=== PATIENT | female | born 1960 | race Caucasian/White ===

== ENCOUNTER 2016-12-29 18:53 | Inpatient (IN) | payer MEDICARE, MEDICAID ==
[2016-12-29] MEDS ORDERED: ONDANSETRON 4 MG TAB.RAPDIS PO ONE (19:07)
--- NOTE | 2016-12-29 19:08 | ER Document Report ---
ED Medical Screen (RME) - General Stated Complaint: STOMACH PAIN Notes: Patient complains of intermittent abdominal pain and nausea since , symptoms worsen since yesterday. Patient denies fever, no diarrhea, no vomiting. Denies history of stomach problems. Patient states that she smoked marijuana last night to help with the nausea. I have greeted and performed a rapid initial assessment of this patient. A comprehensive ED assessment and evaluation of the patient, analysis of test results and completion of the medical decision making process will be conducted by additional ED providers. TRAVEL OUTSIDE OF THE [place] IN LAST 30 DAYS: No - Related Data Allergies/Adverse Reactions: hydrocodone [Hydrocodone] Allergy (Verified 12/29/16 19:03) tramadol [Tramadol] Allergy (Verified 12/29/16 19:03) Past Medical History - Past Medical History Cardiac Medical History: Reports: Hx Hypercholesterolemia Neurological Medical History: Reports: Hx Seizures Psychiatric Medical History: Reports: Hx Bipolar Disorder Past Surgical History: Reports: Hx Appendectomy, Hx Gynecologic Surgery - tubal ligation - Immunizations Hx Diphtheria, Pertussis, Tetanus Vaccination: Yes
[2016-12-29 19:39] LABS: ABSOLUTE EOSINOPHILS # (AUTO) 0.1 10^3/uL (0.0-0.6); ABSOLUTE LYMPHOCYTES (AUTO) 1.4 10^3/uL (0.5-4.7); ABSOLUTE MONOCYTES (AUTO) 0.6 10^3/uL (0.1-1.4); ABSOLUTE NEUT (AUTO) 5.8 10^3/uL (1.7-8.2); BASOPHILS % (AUTO) 0.5 % (0-2); EOSINOPHILS % (AUTO) 1.2 % (0-6); HEMATOCRIT 34.1 % (36.0-47.0); HEMOGLOBIN 11.7 g/dL (12.0-15.5); LYMPHOCYTES % (AUTO) 17.2 % (13-45); MEAN CORPUSCULAR HEMOGLOBIN 30.5 pg (27.0-33.4); MEAN CORPUSCULAR HGB CONC 34.4 g/dL (32.0-36.0); MEAN CORPUSCULAR VOLUME 89 fl (80-97); MONOCYTES % (AUTO) 7.8 % (3-13); RED BLOOD COUNT 3.84 10^6/uL (3.72-5.28); RED CELL DISTRIBUTION WIDTH 13.1 % (11.5-14.0); SEGMENTED NEUTROPHILS % (AUTO) 73.3 % (42-78); WHITE BLOOD COUNT 7.8 10^3/uL (4.0-10.5)
[2016-12-29 19:55] LABS: ALANINE AMINOTRANSFERASE 560 U/L (9-52); ALBUMIN 4.2 g/dL (3.5-5.0); ALKALINE PHOSPHATASE 280 U/L (38-126); ANION GAP 8 (5-19); ASPARTATE AMINO TRANSFERASE 644 U/L (14-36); BILIRUBIN,TOTAL 0.8 mg/dL (0.2-1.3); BLOOD UREA NITROGEN 12 mg/dL (7-20); CALCIUM 9.6 mg/dL (8.4-10.2); CARBON DIOXIDE 30 mmol/L (22-30); CHLORIDE 106 mmol/L (98-107); GLUCOSE 105 mg/dL (75-110); POTASSIUM 4.2 mmol/L (3.6-5.0); SODIUM 144.4 mmol/L (137-145)
[2016-12-29 19:56] LABS: AMORPHOUS SEDIMENT,URINE TRACE /HPF; APPEARANCE,URINE CLEAR; BILIRUBIN,URINE NEGATIVE (NEGATIVE); GLUCOSE, URINE NEGATIVE (NEGATIVE); KETONES,URINE NEGATIVE (NEGATIVE); LEUKOCYTE ESTERASE,URINE NEGATIVE (NEGATIVE); NITRITE,URINE NEGATIVE (NEGATIVE); PROTEIN,URINE NEGATIVE (NEGATIVE); URINE SPECIFIC GRAVITY 1.013; UROBILINOGEN,URINE NEGATIVE mg/dL (<2.0)
[2016-12-29 20:22] LABS: LIPASE 5679.1 U/L (23-300)
[2016-12-29] MEDS ORDERED: FAMOTIDINE INJ/PF 20 MG/2 ML SDV IV ONE (21:02)
[2016-12-29] MEDS ORDERED: MORPHINE SULFATE 10 MG/ML INJ IV ONE (21:02)
[2016-12-29] MEDS ORDERED: NORMAL SALINE 1000 ML 1,000 ML IV PRN (21:02)
--- NOTE | 2016-12-29 21:03 | ER Document Report ---
ED GI/ - General Chief Complaint: Abdominal Pain Stated Complaint: STOMACH PAIN Time seen by provider: 21:02 Mode of Arrival: Ambulatory Information source: Patient TRAVEL OUTSIDE OF THE [place] IN LAST 30 DAYS: No - HPI Patient complains to provider of: Abdominal pain Onset: Other - One month Timing/Duration: Persistent, Waxing and waning Quality of pain: Sharp, Stabbing Severity at maximum: Moderate Severity in ED: Moderate Pain Level: 4 Location: Epigastric Associated symptoms: Nausea Exacerbated by: Denies Relieved by: Denies Similar symptoms previously: Yes Recently seen / treated by doctor: No Notes: 12/29/16 21:36 Patient is a 56-year-old female presenting to the emergency room complaining of epigastric abdominal pain and nausea that's been waxing and waning over the past month, she denies a fever, no vomiting, no history of similar symptoms previously, history of appendectomy in the past, she denies having consumed alcohol in several months, she does admit to smoking marijuana yesterday as she thought it would help her nausea which did not, no sick contacts and no questionable food intake recently - Related Data Allergies/Adverse Reactions: hydrocodone [Hydrocodone] Allergy (Verified 12/29/16 19:03) tramadol [Tramadol] Allergy (Verified 12/29/16 19:03) Past Medical History - General Information source: Patient - Social History Smoking Status: Current Every Day Smoker Chew tobacco use (# tins/day): No Frequency of alcohol use: None Drug Abuse: Marijuana Family History: Reviewed & Not Pertinent Patient has suicidal ideation: No Patient has homicidal ideation: No - Past Medical History Cardiac Medical History: Reports: Hx Hypercholesterolemia Neurological Medical History: Reports: Hx Seizures Renal/ Medical History: Denies: Hx Peritoneal Dialysis Psychiatric Medical History: Reports: Hx Bipolar Disorder Past Surgical History: Reports: Hx Appendectomy, Hx Gynecologic Surgery - tubal ligation - Immunizations Hx Diphtheria, Pertussis, Tetanus Vaccination: Yes Review of Systems - Review of Systems Constitutional: No symptoms reported EENT: No symptoms reported Cardiovascular: No symptoms reported Respiratory: No symptoms reported Gastrointestinal: See HPI Genitourinary: No symptoms reported Female Genitourinary: No symptoms reported Musculoskeletal: No symptoms reported Skin: No symptoms reported Hematologic/Lymphatic: No symptoms reported Neurological/Psychological: No symptoms reported -: Yes All other systems reviewed and negative Physical Exam - Vital signs Vitals: Temp Pulse Resp BP Pulse Ox 98.1 F 86 16 129/78 H 99 12/29/16 19:05 12/29/16 19:05 12/29/16 19:05 12/29/16 19:05 12/29/16 19:05 Interpretation: Normal - General General appearance: Appears well, Alert - HEENT Head: Normocephalic, Atraumatic Eyes: Normal Pupils: PERRL - Respiratory Respiratory status: No respiratory distress Chest status: Nontender Breath sounds: Normal Chest palpation: Normal - Cardiovascular Rhythm: Regular Heart sounds: Normal auscultation Murmur: No - Abdominal Inspection: Normal Distension: No distension Bowel sounds: Normal Tenderness: Tender - Epigastric Organomegaly: No organomegaly - Back Back: Normal, Nontender - Extremities General upper extremity: Normal inspection, Nontender, Normal color, Normal ROM , Normal temperature General lower extremity: Normal inspection, Nontender, Normal color, Normal ROM , Normal temperature, Normal weight bearing. No: Romulo's sign - Neurological Neuro grossly intact: Yes Cognition: Normal Orientation: AAOx4 [place] Coma Scale Eye Opening: Spontaneous [place] Coma Scale Verbal: Oriented [place] Coma Scale Motor: Obeys Commands [place] Coma Scale Total: 15 Speech: Normal Motor strength normal: LUE, RUE, LLE, RLE Sensory: Normal - Psychological Associated symptoms: Normal affect, Normal mood - Skin Skin Temperature: Warm Skin Moisture: Dry Skin Color: Normal Course - Re-evaluation Re-evalutation: 12/29/16 23:17 Lab and imaging findings discussed with patient at bedside, admission was advised, patient in agreement, and was discussed with the hospitalist who agrees to admit for further evaluation and treatment, patient reports feeling much better at time of reevaluation, stable for admission to medical floor - Vital Signs Vital signs: Temp Pulse Resp BP Pulse Ox 98.1 F 86 16 129/78 H 99 12/29/16 19:05 12/29/16 19:05 12/29/16 19:05 12/29/16 19:05 12/29/16 19:05 - Laboratory Result Diagrams: 12/29/16 19:24 12/29/16 19:24 Laboratory results interpreted by me: 12/29/16 12/29/16 12/29/16 19:24 19:24 19:24 Hgb 11.7 L Hct 34.1 L AST 644 H ALT 560 H Alkaline Phosphatase 280 H Lipase 5679.1 H Urine Blood SMALL H - Diagnostic Test Radiology reviewed: Image reviewed, Reports reviewed Discharge - Discharge Clinical Impression: Acute pancreatitis Qualifiers: Pancreatitis type: unspecified pancreatitis type Acute pancreatitis complication: no infection or necrosis Qualified Code(s): K85.90 - Acute pancreatitis without necrosis or infection, unspecified Condition: Stable Disposition: ADMITTED INPATIENT Admitting Provider: Hospitalist Unit Admitted: Medical Floor
[2016-12-29 22:32] LABS: URINE BARBITURATES SCREEN NEGATIVE; URINE METHADONE SCREEN NEGATIVE; URINE OPIATES LOW NEGATIVE; URINE PHENCYCLIDINE SCREEN NEGATIVE
[2016-12-29 23:26] LABS: CHOLESTEROL 252.08 mg/dL (0-200); TRIGLYCERIDES 99 mg/dL (<150)
[2016-12-29 23:34] LABS: Direct HDL 108 mg/dL (>40)
[2016-12-29 23:37] LABS: DIRECT LDL 124 mg/dL (<100)
[2016-12-30] MEDS: NORMAL SALINE 1000 ML 1,000 ML IV SCH ×2 (00:50→04:42)
[2016-12-30] MEDS: ONDANSETRON HCL INJ/PF 4 MG/2 ML SDV IV PRN ×2 (01:00→18:29)
[2016-12-30] MEDS: KETOROLAC TROMETHAMINE INJ/PF 30 MG/1 ML SDV IV PRN ×2 (03:12→11:43)
[2016-12-30 05:04] LABS: ABSOLUTE LYMPHOCYTES (AUTO) 1.2 10^3/uL (0.5-4.7); ABSOLUTE MONOCYTES (AUTO) 0.6 10^3/uL (0.1-1.4); ABSOLUTE NEUT (AUTO) 6.4 10^3/uL (1.7-8.2); BASOPHILS % (AUTO) 0.4 % (0-2); EOSINOPHILS % (AUTO) 0.5 % (0-6); HEMATOCRIT 31.1 % (36.0-47.0); HEMOGLOBIN 10.6 g/dL (12.0-15.5); HGB HCT DIFFERENCE 0.7; LYMPHOCYTES % (AUTO) 14.9 % (13-45); MEAN CORPUSCULAR HEMOGLOBIN 30.5 pg (27.0-33.4); MEAN CORPUSCULAR VOLUME 90 fl (80-97); MONOCYTES % (AUTO) 6.7 % (3-13); RED BLOOD COUNT 3.46 10^6/uL (3.72-5.28); RED CELL DISTRIBUTION WIDTH 13.2 % (11.5-14.0); SEGMENTED NEUTROPHILS % (AUTO) 77.5 % (42-78); WHITE BLOOD COUNT 8.3 10^3/uL (4.0-10.5)
[2016-12-30] MEDS ORDERED: ONDANSETRON HCL INJ/PF 4 MG/2 ML SDV IV ONE (05:06)
[2016-12-30 05:22] LABS: ALANINE AMINOTRANSFERASE 555 U/L (9-52); ALBUMIN 3.4 g/dL (3.5-5.0); ALKALINE PHOSPHATASE 264 U/L (38-126); ANION GAP 8 (5-19); ASPARTATE AMINO TRANSFERASE 545 U/L (14-36); BILIRUBIN,TOTAL 0.7 mg/dL (0.2-1.3); BLOOD UREA NITROGEN 13 mg/dL (7-20); CALCIUM 8.8 mg/dL (8.4-10.2); CARBON DIOXIDE 23 mmol/L (22-30); CHLORIDE 110 mmol/L (98-107); CREATININE RESULT 0.74 mg/dL (0.52-1.25); GLUCOSE 107 mg/dL (75-110); POTASSIUM 4.5 mmol/L (3.6-5.0); SODIUM 141.3 mmol/L (137-145); TOTAL PROTEIN 6.3 g/dL (6.3-8.2)
--- NOTE | 2016-12-30 05:56 | PDOC H&P ---
History of Present Illness Admission Date/PCP: 12/29/16 22:54 TIFFANIE DEL ROSARIO MD Patient complains of: Abdominal pain and nausea History of Present Illness: RENEE BURRIS is a 56 year old female without significant past medical history who'd been in her usual state of health until approximately 5 days ago noting some symptoms of diffuse body ache fever and chill suggestive of a viral illness which is subsequently resolved however this had the development of epigastric pain with nausea vomiting abdominal bloating and loose stools for the last 3 days prompting to seek evaluation emergency room where she's found to have acute pancreatitis and referred to the hospitalist for admission. She denies previous episode she denies alcohol, dyslipidemia or medication other than a trial of Maalox and omeprazole after the onset of symptoms. Past Medical History Cardiac Medical History: Reports: Hyperlipidema Neurological Medical History: Reports: Seizures Psychiatric Medical History: Reports: Bipolar Disorder Past Surgical History Past Surgical History: Reports: Appendectomy Social History Information Source: Patient Lives with: Alone Smoking Status: Current Every Day Smoker Drugs: None - Advance Directive Resuscitation Status: Full Code Family History Family History: Other - Father of gastric carcinoma Parental Family History Reviewed: Yes Children Family History Reviewed: Yes Sibling(s) Family History Reviewed.: Yes Medication/Allergy Home Medications: No Home Medications 12/30/16 Allergies/Adverse Reactions: hydrocodone [Hydrocodone] Allergy (Verified 12/29/16 19:03) tramadol [Tramadol] Allergy (Verified 12/29/16 19:03) Review of Systems Constitutional: ABSENT: chills, fever(s), headache(s), weight gain, weight loss Eyes: ABSENT: visual disturbances Ears: ABSENT: hearing changes Cardiovascular: ABSENT: chest pain, dyspnea on exertion, edema, orthropnea, palpitations Respiratory: ABSENT: cough, hemoptysis Gastrointestinal: ABSENT: abdominal pain, constipation, diarrhea, hematemesis, hematochezia, nausea, vomiting Genitourinary: ABSENT: dysuria, hematuria Musculoskeletal: ABSENT: joint swelling Integumentary: ABSENT: rash, wounds Neurological: ABSENT: abnormal gait, abnormal speech, confusion, dizziness, focal weakness, syncope Psychiatric: ABSENT: anxiety, depression, homidical ideation, suicidal ideation Endocrine: ABSENT: cold intolerance, heat intolerance, polydipsia, polyuria Hematologic/Lymphatic: ABSENT: easy bleeding, easy bruising Physical Exam Vital Signs: Temp Pulse Resp BP Pulse Ox 98.4 F 57 L 16 106/64 96 12/30/16 04:48 12/30/16 04:48 12/30/16 04:48 12/30/16 04:48 12/30/16 04:48 General appearance: PRESENT: cooperative, mild distress, well-developed, well- nourished Head exam: PRESENT: atraumatic, normocephalic Eye exam: PRESENT: conjunctiva pink, EOMI, PERRLA. ABSENT: scleral icterus Ear exam: PRESENT: normal external ear exam Mouth exam: PRESENT: moist, tongue midline Neck exam: ABSENT: carotid bruit, JVD, lymphadenopathy, thyromegaly Respiratory exam: PRESENT: clear to auscultation tanja. ABSENT: rales, rhonchi, wheezes Cardiovascular exam: PRESENT: RRR. ABSENT: diastolic murmur, rubs, systolic murmur Pulses: PRESENT: normal dorsalis pedis pul Vascular exam: PRESENT: normal capillary refill GI/Abdominal exam: PRESENT: hyperactive bowel sounds, normal bowel sounds, soft , tenderness. ABSENT: ascites, distended, guarding, mass, Diaz's sign, organolmegaly, rebound Rectal exam: PRESENT: deferred Extremities exam: PRESENT: full ROM. ABSENT: calf tenderness, clubbing, pedal edema Neurological exam: PRESENT: alert, awake, oriented to person, oriented to place , oriented to time, oriented to situation, CN II-XII grossly intact. ABSENT: motor sensory deficit Psychiatric exam: PRESENT: appropriate affect, normal mood. ABSENT: homicidal ideation, suicidal ideation Skin exam: PRESENT: dry, intact, warm. ABSENT: cyanosis, rash Results Laboratory Results: 12/30/16 04:37 12/30/16 04:37 12/30/16 12/30/16 04:37 04:37 WBC 8.3 RBC 3.46 L Hgb 10.6 L Hct 31.1 L MCV 90 MCH 30.5 MCHC 34.0 RDW 13.2 Plt Count 196 Seg Neutrophils % 77.5 Lymphocytes % 14.9 Monocytes % 6.7 Eosinophils % 0.5 Basophils % 0.4 Absolute Neutrophils 6.4 Absolute Lymphocytes 1.2 Absolute Monocytes 0.6 Absolute Eosinophils 0.0 Absolute Basophils 0.0 Sodium 141.3 Potassium 4.5 Chloride 110 H Carbon Dioxide 23 Anion Gap 8 BUN 13 Creatinine 0.74 Est GFR ( Amer) > 60 Est GFR (Non-Af Amer) > 60 Glucose 107 Calcium 8.8 Total Bilirubin 0.7 AST 545 H ALT 555 H Alkaline Phosphatase 264 H Total Protein 6.3 Albumin 3.4 L Impressions: Abdomen/Pelvis CT 12/29/16 21:01 IMPRESSION: NO SIGNIFICANT OR ACUTE FINDING IN THE ABDOMEN OR PELVIS ON CT SCAN WITH IV CONTRAST. Assessment & Plan - Diagnosis (1) Acute pancreatitis Qualifiers: Pancreatitis type: unspecified pancreatitis type Acute pancreatitis complication: no infection or necrosis Qualified Code(s): K85.90 - Acute pancreatitis without necrosis or infection, unspecified Is this a current diagnosis for this admission?: YesPlan: During the history of evolution and lack of known triggers suspect viral gastroenteritis with subsequent pancreatitis, that said I am concerned for her elevated LFTs without bilirubin and will evaluate a hepatitis profile. Otherwise patient remained nothing by mouth aggressive IV fluid challenge electrolyte repletion and symptomatically management (2) Abdominal pain Is this a current diagnosis for this admission?: YesPlan: Secondary to pancreatitis continue Symptomatically management (3) Elevated LFTs Is this a current diagnosis for this admission?: YesPlan: Evaluate hepatitis profile, reevaluate LFTs for improvement - Time Time Spent: 30 to 50 Minutes
--- NOTE | 2016-12-30 09:18 | PDOC PROGRESS REPORT ---
Subjective Progress Note for:: 12/30/16 Subjective:: Patient is still complaining of abdominal pain The pain is in the right upper quadrant; it is associated with anorexia and nausea Patient has no fever no chills Physical Exam Vital Signs: Temp Pulse Resp BP Pulse Ox 98.4 F 57 L 16 106/64 96 12/30/16 04:48 12/30/16 04:48 12/30/16 04:48 12/30/16 04:48 12/30/16 04:48 General appearance: PRESENT: no acute distress, well-developed, well-nourished Head exam: PRESENT: atraumatic, normocephalic Eye exam: PRESENT: conjunctiva pink, EOMI, PERRLA. ABSENT: scleral icterus Ear exam: PRESENT: normal external ear exam Mouth exam: PRESENT: moist, tongue midline Neck exam: ABSENT: carotid bruit, JVD, lymphadenopathy, thyromegaly Respiratory exam: PRESENT: clear to auscultation tanja. ABSENT: rales, rhonchi, wheezes Cardiovascular exam: PRESENT: RRR. ABSENT: diastolic murmur, rubs, systolic murmur Pulses: PRESENT: normal dorsalis pedis pul Vascular exam: PRESENT: normal capillary refill GI/Abdominal exam: PRESENT: guarding, normal bowel sounds, soft, tenderness - Tenderness of the right upper quadrant with mild guarding. ABSENT: distended, mass, organolmegaly, rebound Rectal exam: PRESENT: deferred Extremities exam: PRESENT: full ROM. ABSENT: calf tenderness, clubbing, pedal edema Neurological exam: PRESENT: alert, awake, oriented to person, oriented to place , oriented to time, oriented to situation, CN II-XII grossly intact. ABSENT: motor sensory deficit Psychiatric exam: PRESENT: appropriate affect, normal mood. ABSENT: homicidal ideation, suicidal ideation Skin exam: PRESENT: dry, intact, warm. ABSENT: cyanosis, rash Results Laboratory Results: 12/30/16 04:37 12/30/16 04:37 12/30/16 12/30/16 04:37 04:37 WBC 8.3 RBC 3.46 L Hgb 10.6 L Hct 31.1 L MCV 90 MCH 30.5 MCHC 34.0 RDW 13.2 Plt Count 196 Seg Neutrophils % 77.5 Lymphocytes % 14.9 Monocytes % 6.7 Eosinophils % 0.5 Basophils % 0.4 Absolute Neutrophils 6.4 Absolute Lymphocytes 1.2 Absolute Monocytes 0.6 Absolute Eosinophils 0.0 Absolute Basophils 0.0 Sodium 141.3 Potassium 4.5 Chloride 110 H Carbon Dioxide 23 Anion Gap 8 BUN 13 Creatinine 0.74 Est GFR ( Amer) > 60 Est GFR (Non-Af Amer) > 60 Glucose 107 Calcium 8.8 Total Bilirubin 0.7 AST 545 H ALT 555 H Alkaline Phosphatase 264 H Total Protein 6.3 Albumin 3.4 L Impressions: Abdomen/Pelvis CT 12/29/16 21:01 IMPRESSION: NO SIGNIFICANT OR ACUTE FINDING IN THE ABDOMEN OR PELVIS ON CT SCAN WITH IV CONTRAST. Assessment & Plan - Diagnosis (1) Acute pancreatitis Qualifiers: Pancreatitis type: unspecified pancreatitis type Acute pancreatitis complication: no infection or necrosis Qualified Code(s): K85.90 - Acute pancreatitis without necrosis or infection, unspecified Is this a current diagnosis for this admission?: Yes (2) Elevated LFTs Is this a current diagnosis for this admission?: Yes - Time Time Spent with patient: CT abdomen and pelvis was unremarkable; a hepatitis profile is pending We will order an ultrasound of the right upper quadrant to exclude acute cholecystitis Tylenol level was ordered although patient states that she never takes Tylenol We will keep the patient nothing by mouth with IV fluids Follow-up LFTs and lipase Time Spent with patient: 25-34 minutes
[2016-12-30 10:25] LABS: PROTHROMBIN TIME 13.3 SEC (11.4-15.4)
[2016-12-30] MEDS ORDERED: INFLUENZA ADLT QUAD (36MOS+) 2016-17 VAC 0.5 ML SYR IM PRN (10:43)
[2016-12-30] MEDS: HEPARIN SOD (PORCINE) 5,000 UNIT/ML 1 ML SYRINGE SUBCUT SCH ×3 (11:44→21:26)
[2016-12-30] MEDS ORDERED: LORAZEPAM INJ 2 MG/1 ML VIAL IV ONE (22:12)
[2016-12-31] MEDS: HEPARIN SOD (PORCINE) 5,000 UNIT/ML 1 ML SYRINGE SUBCUT SCH (06:39)
[2016-12-31] MEDS: ONDANSETRON HCL INJ/PF 4 MG/2 ML SDV IV PRN (12:27)
--- NOTE | 2016-12-31 14:47 | PDOC CONSULTATION ---
Consultation Consult Date: 12/31/16 Attending physician:: DINORA POWERS Consult reason:: Gallbladder disease History of Present Illness Admission Date/PCP: 12/29/16 22:54 TIFFANIE DEL ROSARIO MD History of Present Illness: RENEE BURRIS is a 56 year old female without significant past medical history who'd been in her usual state of health until approximately 5 days ago noting some symptoms of diffuse body ache fever and chill suggestive of a viral illness which is subsequently resolved however this had the development of epigastric pain with nausea vomiting abdominal bloating and loose stools for the last 3 days prompting to seek evaluation emergency room where she's found to have acute pancreatitis and referred to the hospitalist for admission. She denies previous episode she denies alcohol, dyslipidemia or medication other than a trial of Maalox and omeprazole after the onset of symptoms. Surgeons addendum; patient denies history of gallbladder problems, history of pancreatitis or family history of biliary tract disease. Denies previous episodes of pancreatitis. SHe denies history of trauma, change in medications, insect bites. Since hospitalization she's been kept nothing by mouth on IV fluids. She feels a little better. Her pain is primarily epigastric and right upper quadrant. Past Medical History Cardiac Medical History: Reports: Hyperlipidema Neurological Medical History: Reports: Seizures Psychiatric Medical History: Reports: Bipolar Disorder Past Surgical History Past Surgical History: Reports: Appendectomy Social History Lives with: Alone Smoking Status: Current Every Day Smoker Cigarettes Packs Per Day: 1 Frequency of Alcohol Use: None Hx Recreational Drug Use: No Drugs: None Hx Prescription Drug Abuse: No - Advance Directive Resuscitation Status: Full Code Family History Family History: Other - Father of gastric carcinoma Parental Family History Reviewed: Yes Children Family History Reviewed: Yes Sibling(s) Family History Reviewed.: Yes Medication/Allergy Home Medications: No Home Medications 12/30/16 Allergies/Adverse Reactions: hydrocodone [Hydrocodone] Allergy (Verified 12/29/16 19:03) tramadol [Tramadol] Allergy (Verified 12/29/16 19:03) Physical Exam Vital Signs: Temp Pulse Resp BP Pulse Ox 98.7 F 89 18 107/46 L 96 12/31/16 07:34 12/31/16 07:34 12/31/16 07:34 12/31/16 07:34 12/31/16 07:34 Intake & Output 12/30/16 12/31/16 01/01/17 06:59 06:59 06:59 Intake Total 100 10 Output Total 900 Balance -800 10 Weight 82 kg 82 kg General appearance: PRESENT: no acute distress Eye exam: PRESENT: EOMI Mouth exam: PRESENT: dry mucosa Respiratory exam: PRESENT: clear to auscultation tanja Cardiovascular exam: PRESENT: RRR Pulses: PRESENT: normal carotid pulses, normal radial pulses GI/Abdominal exam: PRESENT: other - Soft but exquisitely tender in the right upper quadrant with a suggestion of a palpable all bladder. Rectal exam: PRESENT: other - Deferred; patient had colonoscopy within the past 10 years in [place], [place] with removal of polyp Results Laboratory Results: 12/30/16 04:37 12/30/16 04:37 12/31/16 14:00 Lipase 881.5 H Impressions: Abdomen/Pelvis CT 12/29/16 21:01 IMPRESSION: NO SIGNIFICANT OR ACUTE FINDING IN THE ABDOMEN OR PELVIS ON CT SCAN WITH IV CONTRAST. Abdomen Ultrasound 12/30/16 08:44 IMPRESSION: Gallbladder contracted around nonshadowing debris. Trace pericholecystic fluid. Very mild intrahepatic biliary ductal dilatation. Distal common duct not well seen. Question distal common duct obstruction related to stone or stricture. Consider hepatobiliary scan or MRCP for followup Assessment & Plan - Diagnosis (1) Acute cholecystitis Is this a current diagnosis for this admission?: YesPlan: 1. Based the patient's clinical history, physical examination findings and laboratory profile, I believe she is suffering from acute cholecystitis. Gallbladder ultrasound shows sludge and trace pericholecystic fluid. Right upper quadrant tenderness is exquisite and I believe I can palpate a distended gallbladder. I think she would benefit from an interval laparoscopic, possible open cholecystectomy. 2. Liver function studies are elevated but trending down; we await follow-up lipase today. The consideration for a retained common bile duct stone discussed with the patient. Intraoperative cholangiography and subsequent ERCP if indicated versus preoperative ERCP also discussed with patient and primary care team. 3. We'll keep patient nothing by mouth on IV fluids and make specific recommendations once today's laboratory values her back. (2) Elevated LFTs Is this a current diagnosis for this admission?: Yes (3) Acute pancreatitis Qualifiers: Pancreatitis type: unspecified pancreatitis type Acute pancreatitis complication: no infection or necrosis Qualified Code(s): K85.90 - Acute pancreatitis without necrosis or infection, unspecified Is this a current diagnosis for this admission?: YesPlan: Her CT scan shows no significant radiographic evidence of pancreatitis. Suspicion for choledocholithiasis is mild to moderate. In the absence of any other risk factors for pancreatitis, except mild hypercholesterolemia, retained common bile duct stone will need to be ruled out. - Time Time Spent: 30 to 50 Minutes Critical Time spent with patient: 15-24 minutes
[2016-12-31] MEDS: AMPICILLIN SODIUM/SULBACTAM NA 3 GM in NORMAL SALINE 100 ML IV SCH ×2 (15:10→20:26)
[2016-12-31] MEDS ORDERED: HYDROMORPHONE HCL INJ/PF 2 MG/ML AMPULE ONE (15:18)
[2016-12-31] MEDS ORDERED: MIDAZOLAM 2 MG/2 ML INJ ONE (15:19)
[2016-12-31] MEDS ORDERED: FENTANYL CITRATE INJ/PF 100 MCG/2 ML AMPUL ONE (15:19)
[2016-12-31] MEDS ORDERED: PROPOFOL INJ 200 MG/20 ML VIAL IV ONE (15:19)
[2016-12-31] MEDS ORDERED: ACETAMINOPHEN 100 ML IV ONE (15:19)
[2016-12-31] MEDS ORDERED: BUPIVACAINE HCL 0.25 % INJ/PF (2.5 MG/1 ML) 30 ML VIAL ONE (15:21)
[2016-12-31] MEDS ORDERED: DIPHENHYDRAMINE HCL 50 MG/ML VIAL IV PRN (15:24)
[2016-12-31] MEDS ORDERED: FENTANYL CITRATE INJ/PF 100 MCG/2 ML AMPUL IV PRN ×3 (15:24)
[2016-12-31] MEDS ORDERED: ONDANSETRON HCL INJ/PF 4 MG/2 ML SDV IV PRN (15:24)
[2016-12-31] MEDS ORDERED: MORPHINE SULFATE 10 MG/ML INJ IV PRN (15:24)
[2016-12-31] MEDS ORDERED: MEPERIDINE HCL/PF INJ 25 MG/1 ML DISP.SYRIN IV PRN (15:24)
[2016-12-31] MEDS ORDERED: PROMETHAZINE HCL INJ 25 MG/1 ML VIAL IV PRN (15:24)
--- NOTE | 2016-12-31 17:07 | Operative Report ---
Operative Report DATE OF SURGERY: 12/31/16 PREOPERATIVE DIAGNOSIS: Acute cholecystitis; elevated liver function studies; hyper-lipasemia POSTOPERATIVE DIAGNOSIS: Same OPERATION: 1. Laparoscopic cholecystectomy. 2. Intraoperative cholangiography. 3.. Interpretation of intraoperative cholangiography SURGEON: MITA PLUMMER ANESTHESIA: GA TISSUE REMOVED OR ALTERED: 1 gallbladder with contents COMPLICATIONS: None ESTIMATED BLOOD LOSS: scant INTRAOPERATIVE FINDINGS: See below PROCEDURE: After obtaining informed consent, the patient was taken to the operating room. General Anesthesia was induced; the arms were extended, and the abdomen was exposed, and prepped and draped in a sterile fashion. Instrumentation was set up for laparoscopic cholecystectomy. Surgical plan and surgical timeout were conducted. A vertical incision was made above the umbilicus, and a verres needle was inserted uneventfully into the peritoneal cavity. Pneumoperitoneum was established. The verres needle was removed and a 5 mm trocar was inserted and a 5 mm flexible laparoscope was inserted. Visualization of the peritoneal cavity confirmed safe uneventful entry. Under direct visualization 3 additional 5 mm ports were established, one in the subxiphoid position and second in the subcostal position. Visualization of the hepatobiliary anatomy revealed no anatomic variations. A grasper was placed on the fundus of the gallbladder and the gallbladder is elevated over the right surface of the liver; a second grasper was used to grasp the infundibulum of the gallbladder. The neck of the gallbladder and junction with the cystic duct was dissected out. The Cystic artery was in its usual location medial and cephalad but parallel to the cystic duct. It was accompanied by the cystic vein The cystic artery was surrounded with a right angle clamp, clipped twice proximally and divided with laparoscopic scissors. Now proceeded with intraoperative cholangiography given history of probable gallstone pancreatitis, and mildly dilated common bile duct on ultrasonography. The triangle of Calot was widely open at this point. Plate between the gallbladder and the liver bed was also opened. Photos were taken. A percutaneous mini cholangiogram catheter was threaded through the anterior abdominal wall through a separate stab incision. A cystotomy was made in the very small cystic duct with the laparoscopic scissors. There was no egress of bile nor stones despite milking of the cystic duct. The cholangiogram catheter was threaded into position and clipped into place. We leveled the patient now removed respective laparoscopic instruments and shot a series of cholangiograms a full strength Isovue. The patient was in slight Trendelenburg position to enhance imaging. The findings were significant for a cystic duct emptying into a common bile duct, with a non-opacified segment of common bile duct and then an opacification the common bile duct and readily efflux of contrast into the duodenum; provide additional injection of contrast to manipulate the patient as well as the fluoroscopy unit, we were not able to sufficiently visualize the proximal biliary tree. Conference was held with Dr. Kana Irby, radiologist who agreed that there was no evidence of bile leak, and the distal common bile duct was visualized with contrast draining into the duodenum. The explanation for nonvisualization of the proximal biliary tree was inconclusive. This may be due to edema blood or even structures and although the latter less likely. We felt this part of the operation was complete. We leveled the patient out, reinserted laparoscopic instruments, removed the cholangiogram catheter from the cystic duct and now took the gallbladder completely off the liver bed from the top down approach; this enabled us to visualize the gallbladder suspended solely from the previously interrogated cystic duct. There were no other Structures connecting the gallbladder to the liver. Photographs were taken, and the cystic duct clipped twice proximally once distally and divided with scissors. The gallbladder was now removed from the undersurface of the liver using hook cautery dissection. Graspers were repositioned and the gallbladder was removed uneventfully from the abdominal cavity through the super umbilical port site incision. The specimen was examined, then passed off to pathology for permanent analysis. We returned to the peritoneal cavity check for bleeding, and evidence of bile leak, and there was none. We Confirmed satisfactory placement of clips on cystic duct and cystic artery were secured . At this point we felt the operation was complete. The subcutaneous tissue was then anesthetized with quarter percent Marcaine Sponge and needle counts are correct. All ports removed under direct visualization pneumoperitoneum evacuated, and 5 mm port wounds closed with 3-0 Vicryl suture, benzoin and Steri-Strips. The patient was extubated, and taken to the recovery room in stable condition. Discussed the intraoperative findings, specifically the cholangiogram with Dr. Irby after the operation and he had no further amendments to the original interpretation. We will obtain liver function studies in 24 hours to ensure they are stabilizing.
--- NOTE | 2016-12-31 18:15 | EKG REPORT ---
SEVERITY:- NORMAL ECG - SINUS RHYTHM : Confirmed by: Justino Gimenez MD 31-Dec-2016 18:14:53
--- NOTE | 2016-12-31 20:11 | PDOC PROGRESS REPORT ---
Subjective Progress Note for:: 12/31/16 Subjective:: Patient still has agreed to all of pain An ultrasound of the right upper quadrant is consistent with acute cholecystitis LFTs are still elevated General surgery consult will be obtained Physical Exam Vital Signs: Temp Pulse Resp BP Pulse Ox 98.7 F 63 18 108/57 L 94 12/31/16 18:50 12/31/16 18:50 12/31/16 18:50 12/31/16 18:50 12/31/16 18:50 Intake & Output 12/30/16 12/31/16 01/01/17 00:59 00:59 00:59 Intake Total 100 840 Output Total 900 15 Balance -800 825 Weight 82 kg 82 kg General appearance: PRESENT: mild distress Head exam: PRESENT: atraumatic, normocephalic Eye exam: PRESENT: conjunctiva pink, EOMI, PERRLA. ABSENT: scleral icterus Neck exam: ABSENT: carotid bruit, JVD, lymphadenopathy, thyromegaly Respiratory exam: PRESENT: clear to auscultation tanja. ABSENT: rales, rhonchi, wheezes Cardiovascular exam: PRESENT: RRR. ABSENT: diastolic murmur, rubs, systolic murmur Pulses: PRESENT: normal dorsalis pedis pul GI/Abdominal exam: PRESENT: guarding, Diaz's sign, normal bowel sounds, tenderness - Right upper quadrant Extremities exam: PRESENT: full ROM. ABSENT: calf tenderness, clubbing, pedal edema Musculoskeletal exam: PRESENT: ambulatory Neurological exam: PRESENT: alert, awake, oriented to person, oriented to place , oriented to time, oriented to situation, CN II-XII grossly intact. ABSENT: motor sensory deficit Results Laboratory Results: 12/30/16 04:37 12/30/16 04:37 12/31/16 14:00 Lipase 881.5 H Impressions: Abdomen/Pelvis CT 12/29/16 21:01 IMPRESSION: NO SIGNIFICANT OR ACUTE FINDING IN THE ABDOMEN OR PELVIS ON CT SCAN WITH IV CONTRAST. Abdomen Ultrasound 12/30/16 08:44 IMPRESSION: Gallbladder contracted around nonshadowing debris. Trace pericholecystic fluid. Very mild intrahepatic biliary ductal dilatation. Distal common duct not well seen. Question distal common duct obstruction related to stone or stricture. Consider hepatobiliary scan or MRCP for followup Cholangiogram 12/31/16 00:00 IMPRESSION: INTRAOPERATIVE CHOLANGIOGRAM. Assessment & Plan - Diagnosis (1) Acute pancreatitis Qualifiers: Pancreatitis type: unspecified pancreatitis type Acute pancreatitis complication: no infection or necrosis Qualified Code(s): K85.90 - Acute pancreatitis without necrosis or infection, unspecified Is this a current diagnosis for this admission?: YesPlan: Lipase is improving Decreased to 800 Continue hydration (2) Elevated LFTs Is this a current diagnosis for this admission?: YesPlan: 12/30/16 12/31/16 04:37 14:00 Total Bilirubin 0.7 AST 545 H ALT 555 H Alkaline Phosphatase 264 H Lipase 881.5 H Elevated LFTs secondary to acute cholecystitis Follow-up LFTs in the morning Noted that the bilirubin is normal (3) Acute cholecystitis Is this a current diagnosis for this admission?: YesPlan: Initiated Unasyn as per Dr. Watters Patient's scheduled for cholecystectomy today (4) Hyperlipidemia Is this a current diagnosis for this admission?: YesPlan: 12/29/16 21:25 Triglycerides 99 Cholesterol 252.08 H LDL Cholesterol Direct 124 H VLDL Cholesterol 20.0 HDL Cholesterol 108 Patient will need treatment after she recovers and the liver function test are back to normal - Time Time Spent with patient: 25-34 minutes
[2017-01-01] MEDS: AMPICILLIN SODIUM/SULBACTAM NA 3 GM in NORMAL SALINE 100 ML IV SCH ×4 (02:52→21:47)
[2017-01-01] MEDS: MORPHINE SULFATE 10 MG/ML INJ IV PRN ×2 (05:13→08:39)
[2017-01-01 07:59] LABS: ALANINE AMINOTRANSFERASE 371 U/L (9-52); ALBUMIN 3.7 g/dL (3.5-5.0); ALKALINE PHOSPHATASE 339 U/L (38-126); ANION GAP 15 (5-19); ASPARTATE AMINO TRANSFERASE 198 U/L (14-36); BILIRUBIN,TOTAL 1.2 mg/dL (0.2-1.3); BLOOD UREA NITROGEN 12 mg/dL (7-20); CALCIUM 9.3 mg/dL (8.4-10.2); CARBON DIOXIDE 19 mmol/L (22-30); CHLORIDE 106 mmol/L (98-107); CREATININE RESULT 0.72 mg/dL (0.52-1.25); GLUCOSE 55 mg/dL (75-110); POTASSIUM 4.3 mmol/L (3.6-5.0); SODIUM 139.7 mmol/L (137-145); TOTAL PROTEIN 6.3 g/dL (6.3-8.2)
[2017-01-01] MEDS: ONDANSETRON HCL INJ/PF 4 MG/2 ML SDV IV PRN (08:39)
--- NOTE | 2017-01-01 12:25 | PDOC PROGRESS REPORT ---
Subjective Progress Note for:: 01/01/17 Subjective:: Patient feels much better, tolerating clear liquid diet. He did have some nausea Physical Exam Vital Signs: Temp Pulse Resp BP Pulse Ox 99.4 F 80 16 114/56 L 96 01/01/17 11:48 01/01/17 11:48 01/01/17 11:48 01/01/17 11:48 01/01/17 11:48 Intake & Output 12/31/16 01/01/17 01/02/17 06:59 06:59 06:59 Intake Total 100 2090 Output Total 900 15 Balance -800 2074 Weight 82 kg 79.1 kg General appearance: PRESENT: no acute distress Eye exam: PRESENT: EOMI GI/Abdominal exam: PRESENT: other - Operative incisions are healing satisfactorily. Some tenderness Results Laboratory Results: 12/30/16 04:37 01/01/17 06:54 12/31/16 01/01/17 14:00 06:54 Sodium 139.7 Potassium 4.3 Chloride 106 Carbon Dioxide 19 L Anion Gap 15 BUN 12 Creatinine 0.72 Est GFR ( Amer) > 60 Est GFR (Non-Af Amer) > 60 Glucose 55 L Calcium 9.3 Total Bilirubin 1.2 AST 198 H ALT 371 H Alkaline Phosphatase 339 H Total Protein 6.3 Albumin 3.7 Lipase 881.5 H Impressions: Abdomen/Pelvis CT 12/29/16 21:01 IMPRESSION: NO SIGNIFICANT OR ACUTE FINDING IN THE ABDOMEN OR PELVIS ON CT SCAN WITH IV CONTRAST. Abdomen Ultrasound 12/30/16 08:44 IMPRESSION: Gallbladder contracted around nonshadowing debris. Trace pericholecystic fluid. Very mild intrahepatic biliary ductal dilatation. Distal common duct not well seen. Question distal common duct obstruction related to stone or stricture. Consider hepatobiliary scan or MRCP for followup Cholangiogram 12/31/16 00:00 IMPRESSION: INTRAOPERATIVE CHOLANGIOGRAM. Assessment & Plan - Diagnosis (1) Acute cholecystitis Is this a current diagnosis for this admission?: Yes (2) Elevated LFTs Is this a current diagnosis for this admission?: Yes (3) Acute pancreatitis Qualifiers: Pancreatitis type: unspecified pancreatitis type Acute pancreatitis complication: no infection or necrosis Qualified Code(s): K85.90 - Acute pancreatitis without necrosis or infection, unspecified Is this a current diagnosis for this admission?: Yes (5) Status post laparoscopic cholecystectomy Is this a current diagnosis for this admission?: YesPlan: Patient doing well postoperative cholecystectomy without complications for acute cholecystitis Plan: 1. Will advance diet as tolerated 2. Liver function studies this morning show improvement 3. Patient can follow up with Dr. Watters or [facility] in 1-2 weeks.
--- NOTE | 2017-01-01 15:55 | PDOC PROGRESS REPORT ---
Subjective Progress Note for:: 01/01/17 Subjective:: Reason for visit: Follow-up acute cholecystitis Hospital course: Per H&P "RENEE BURRIS is a 56 year old female without significant past medical history who'd been in her usual state of health until approximately 5 days ago noting some symptoms of diffuse body ache fever and chill suggestive of a viral illness which is subsequently resolved however this had the development of epigastric pain with nausea vomiting abdominal bloating and loose stools for the last 3 days prompting to seek evaluation emergency room where she's found to have acute pancreatitis and referred to the hospitalist for admission. She denies previous episode she denies alcohol, dyslipidemia or medication other than a trial of Maalox and omeprazole after the onset of symptoms." Patient subsequently diagnosed with acute cholecystitis and has undergone successful laparoscopic cholecystectomy without complication. Her liver function tests remained slightly elevated but are trending down, her intraoperative cholangiogram was reportedly normal per my discussion with surgery. Patient remains on Unasyn. Of note hepatitis A, B, and C screen and and antinuclear antibody all negative. Subjective: Surgery is advanced to clear liquid diet which she seems to be tolerating well, she states she's been up walking in the room and would like to go further and that she is at 2 very small bowel movements this morning. She states her pain is well controlled and denies chest pain, palpitations, fever, chills, nausea and vomiting. ROS: per HPI plus a total of 10 systems reviewed, pertinent positives and negatives noted above, remaining systems negative. Physical Exam Vital Signs: Temp Pulse Resp BP Pulse Ox 99.4 F 80 16 114/56 L 96 01/01/17 11:48 01/01/17 11:48 01/01/17 11:48 01/01/17 11:48 01/01/17 11:48 Intake & Output 12/31/16 01/01/17 01/02/17 06:59 06:59 06:59 Intake Total 100 0 Output Total 900 15 Balance -800 2074 Weight 82 kg 79.1 kg EXAM GENERAL: NAD; well developed, well nourished; mild obese; alert and oriented to person, place, time, situation HEENT: normocephalic, atraumatic; no conjunctival injection, no scleral icterus ; oral mucosa moist; RESPIRATORY: no accessory muscle use, no increased WOB, good air entry bilaterally; no wheezes, rales, rhonchi; no inspiratory crackles CARDIO: no JVD; RRR; no systolic murmur; no tachycardia GI: soft; nondistended; normal bowel sounds; no hepato spleno megaly; no rebound, rigidity, guarding; mild, appropriate tenderness to palpation. Surgical wounds clean dry and intact with Steri-Strips in place. VASCULAR: no carotid bruit; no abdominal bruit; no pallor; 2+ radial, DP pulse ; normal capillary refill EXTREMITIES: no calf tender; no palpable cords in calf; no clubbing, cyanosis , pedal edema PSYCH: normal affect, normal mood SKIN: warm; moist; no petechiae; no telengectasias; no jaundice; no rash Results Laboratory Results: 12/30/16 04:37 01/01/17 06:54 01/01/17 06:54 Sodium 139.7 Potassium 4.3 Chloride 106 Carbon Dioxide 19 L Anion Gap 15 BUN 12 Creatinine 0.72 Est GFR ( Amer) > 60 Est GFR (Non-Af Amer) > 60 Glucose 55 L Calcium 9.3 Total Bilirubin 1.2 AST 198 H ALT 371 H Alkaline Phosphatase 339 H Total Protein 6.3 Albumin 3.7 Impressions: Abdomen/Pelvis CT 12/29/16 21:01 IMPRESSION: NO SIGNIFICANT OR ACUTE FINDING IN THE ABDOMEN OR PELVIS ON CT SCAN WITH IV CONTRAST. Abdomen Ultrasound 12/30/16 08:44 IMPRESSION: Gallbladder contracted around nonshadowing debris. Trace pericholecystic fluid. Very mild intrahepatic biliary ductal dilatation. Distal common duct not well seen. Question distal common duct obstruction related to stone or stricture. Consider hepatobiliary scan or MRCP for followup Cholangiogram 12/31/16 00:00 IMPRESSION: INTRAOPERATIVE CHOLANGIOGRAM. Status: Imported from PACS Assessment & Plan - Diagnosis (1) Acute cholecystitis Is this a current diagnosis for this admission?: YesPlan: Status post successful laparoscopic cholecystectomy. Assuming she tolerates advancement of her diet like she could likely be discharged home in the morning per my discussion with surgery. (2) Elevated LFTs Is this a current diagnosis for this admission?: YesPlan: Likely secondary to the above with negative intraoperative cholangiogram. Continue to trend, deferring to her PCP for outpatient follow-up. Assume they will return to normal further remove she gets from the inciting event. (3) Hyperlipidemia Qualifiers: Hyperlipidemia type: mixed hyperlipidemia Qualified Code(s): E78.2 - Mixed hyperlipidemia Is this a current diagnosis for this admission?: YesPlan: We'll have to control with with diet and exercise at this point, really not that far from goal anyway, but due to her elevated LFTs which cannot start usual fibrillates or statin therapy at this time. - Time Time Spent with patient: 25-34 minutes - Plan Summary Plan Summary: Anticipate discharge home in the morning barring any complications overnight. Of note surgery reports she exhibited some bizarre behaviors and oversedation with even low dose narcotics and is recommending only nonsteroidal anti- inflammatories after discharge.
[2017-01-01] MEDS: LACTOBACILLUS ACIDOPHILUS 250 MG TAB PO SCH (17:18)
[2017-01-01] MEDS: KETOROLAC TROMETHAMINE INJ/PF 30 MG/1 ML SDV IV PRN (22:56)
[2017-01-02] MEDS: AMPICILLIN SODIUM/SULBACTAM NA 3 GM in NORMAL SALINE 100 ML IV SCH ×4 (03:15→21:12)
[2017-01-02] MEDS: LACTOBACILLUS ACIDOPHILUS 250 MG TAB PO SCH ×2 (09:22→19:02)
[2017-01-02 11:18] LABS: ALANINE AMINOTRANSFERASE 617 U/L (9-52); ALKALINE PHOSPHATASE 398 U/L (38-126); ANION GAP 9 (5-19); ASPARTATE AMINO TRANSFERASE 621 U/L (14-36); BILIRUBIN,DIRECT 0.1 mg/dL (0.0-0.3); BILIRUBIN,TOTAL 1.7 mg/dL (0.2-1.3); BLOOD UREA NITROGEN 8 mg/dL (7-20); CALCIUM 9.5 mg/dL (8.4-10.2); CARBON DIOXIDE 30 mmol/L (22-30); CHLORIDE 104 mmol/L (98-107); CREATININE RESULT 0.69 mg/dL (0.52-1.25); GLUCOSE 111 mg/dL (75-110); LIPASE 1055.2 U/L (23-300); POTASSIUM 4.2 mmol/L (3.6-5.0); SODIUM 142.8 mmol/L (137-145); TOTAL PROTEIN 6.8 g/dL (6.3-8.2)
--- NOTE | 2017-01-02 16:59 | PDOC PROGRESS REPORT ---
Subjective Progress Note for:: 01/02/17 Subjective:: Reason for visit: Follow-up acute cholecystitis Hospital course: Per H&P "REENE BURRIS is a 56 year old female without significant past medical history who'd been in her usual state of health until approximately 5 days ago noting some symptoms of diffuse body ache fever and chill suggestive of a viral illness which is subsequently resolved however this had the development of epigastric pain with nausea vomiting abdominal bloating and loose stools for the last 3 days prompting to seek evaluation emergency room where she's found to have acute pancreatitis and referred to the hospitalist for admission. She denies previous episode she denies alcohol, dyslipidemia or medication other than a trial of Maalox and omeprazole after the onset of symptoms." Patient subsequently diagnosed with acute cholecystitis and has undergone successful laparoscopic cholecystectomy without complication. Her liver function tests remained slightly elevated but are trending down, her intraoperative cholangiogram was reportedly normal per my discussion with surgery. Patient remains on Unasyn. Of note hepatitis A, B, and C screen and and antinuclear antibody all negative. Subjective: Doing as well today with increased epigastric pain described as sharp stabbing radiating to her back worsened with palpation in certain movements no alleviating factors with associated nausea but no vomiting. She describes anorexia. He denies fevers, chills, chest pain, palpitations, diarrhea. She has had one bowel movement of normal soft brown stool. ROS: per HPI plus a total of 10 systems reviewed, pertinent positives and negatives noted above, remaining systems negative. Physical Exam Vital Signs: Temp Pulse Resp BP Pulse Ox 98.0 F 72 18 121/64 97 01/02/17 11:59 01/02/17 11:59 01/02/17 11:59 01/02/17 11:59 01/02/17 11:59 Intake & Output 01/01/17 01/02/17 01/03/17 06:59 06:59 06:59 Intake Total 2089 1869 Output Total 2074 Weight 79.1 kg 78.2 kg EXAM GENERAL: NAD; well developed, well nourished; mild obese; alert and oriented to person, place, time, situation HEENT: normocephalic, atraumatic; no conjunctival injection, no scleral icterus ; oral mucosa moist; RESPIRATORY: no accessory muscle use, no increased WOB, good air entry bilaterally; no wheezes, rales, rhonchi; no inspiratory crackles CARDIO: no JVD; RRR; no systolic murmur; no tachycardia GI: soft; nondistended; normal bowel sounds; no hepato spleno megaly; no rebound, rigidity, guarding; sharp, stabbing pain on palpation of the epigastrium reproducing her discomfort. Surgical wounds clean dry and intact with Steri-Strips in place. VASCULAR: no carotid bruit; no abdominal bruit; no pallor; 2+ radial, DP pulse ; normal capillary refill EXTREMITIES: no calf tender; no palpable cords in calf; no clubbing, cyanosis , pedal edema PSYCH: normal affect, normal mood SKIN: warm; moist; no petechiae; no telengectasias; no jaundice; no rash Results Laboratory Results: 12/30/16 04:37 01/02/17 10:51 01/02/17 10:51 Sodium 142.8 Potassium 4.2 Chloride 104 Carbon Dioxide 30 Anion Gap 9 BUN 8 Creatinine 0.69 Est GFR ( Amer) > 60 Est GFR (Non-Af Amer) > 60 Glucose 111 H Calcium 9.5 Total Bilirubin 1.7 H AST 621 H ALT 617 H Alkaline Phosphatase 398 H Total Protein 6.8 Albumin 4.0 Lipase 1055.2 H Labs reviewed. Lipase and LFTs once again rising. Impressions: Abdomen/Pelvis CT 12/29/16 21:01 IMPRESSION: NO SIGNIFICANT OR ACUTE FINDING IN THE ABDOMEN OR PELVIS ON CT SCAN WITH IV CONTRAST. Abdomen Ultrasound 12/30/16 08:44 IMPRESSION: Gallbladder contracted around nonshadowing debris. Trace pericholecystic fluid. Very mild intrahepatic biliary ductal dilatation. Distal common duct not well seen. Question distal common duct obstruction related to stone or stricture. Consider hepatobiliary scan or MRCP for followup Cholangiogram 12/31/16 00:00 IMPRESSION: INTRAOPERATIVE CHOLANGIOGRAM. Abdomen X-Ray 01/02/17 00:00 IMPRESSION: NO RADIOGRAPHIC EVIDENCE FOR ACUTE ABDOMINAL DISEASE. Status: Image reviewed by me - Abdominal x-ray shows a nonobstructive bowel gas pattern, no free air Assessment & Plan - Diagnosis (1) Acute cholecystitis Is this a current diagnosis for this admission?: YesPlan: Status post successful laparoscopic cholecystectomy with reportedly normal intraoperative cholangiogram. Worsening epigastric pain with rising LFTs and lipase worrisome for postoperative pancreatitis or possibly common bile duct obstruction. Changed to nothing by mouth status and check HIDA scan. Trend labs. (2) Elevated LFTs Is this a current diagnosis for this admission?: YesPlan: Likely secondary to the above with reportedly negative intraoperative cholangiogram. May need gastroenterology consult for ERCP depending on HIDA scan results. Resume IV fluids. Trend LFTs. (3) Hyperlipidemia Qualifiers: Hyperlipidemia type: mixed hyperlipidemia Qualified Code(s): E78.2 - Mixed hyperlipidemia Is this a current diagnosis for this admission?: YesPlan: We'll have to control with with diet and exercise at this point, really not that far from goal anyway, but due to her elevated LFTs which cannot start usual fibrillates or statin therapy at this time. Defer her PCP after discharge. - Time Time Spent with patient: 25-34 minutes - Plan Summary Plan Summary: Overall disappointing turn of events. Follow-up on the above testing. Further recommends to follow.
[2017-01-02] MEDS: MORPHINE SULFATE 10 MG/ML INJ IV PRN (17:09)
[2017-01-02] MEDS: RINGERS SOLUTION,LACTATED 1,000 ML IV PRN (19:31)
[2017-01-03] MEDS: AMPICILLIN SODIUM/SULBACTAM NA 3 GM in NORMAL SALINE 100 ML IV SCH ×4 (02:22→20:43)
[2017-01-03] MEDS: RINGERS SOLUTION,LACTATED 1,000 ML IV PRN ×2 (07:24→19:27)
[2017-01-03] MEDS ORDERED: RINGERS SOLUTION,LACTATED 1,000 ML IV ONE (07:38)
[2017-01-03 07:46] LABS: ABSOLUTE EOSINOPHILS # (AUTO) 0.1 10^3/uL (0.0-0.6); ABSOLUTE LYMPHOCYTES (AUTO) 1.1 10^3/uL (0.5-4.7); ABSOLUTE MONOCYTES (AUTO) 0.5 10^3/uL (0.1-1.4); ABSOLUTE NEUT (AUTO) 4.3 10^3/uL (1.7-8.2); BASOPHILS % (AUTO) 0.7 % (0-2); EOSINOPHILS % (AUTO) 2.2 % (0-6); HEMATOCRIT 30.9 % (36.0-47.0); HEMOGLOBIN 10.6 g/dL (12.0-15.5); HGB HCT DIFFERENCE 0.9; LYMPHOCYTES % (AUTO) 17.9 % (13-45); MEAN CORPUSCULAR HEMOGLOBIN 30.7 pg (27.0-33.4); MEAN CORPUSCULAR HGB CONC 34.3 g/dL (32.0-36.0); MEAN CORPUSCULAR VOLUME 89 fl (80-97); MONOCYTES % (AUTO) 8.2 % (3-13); RED BLOOD COUNT 3.46 10^6/uL (3.72-5.28); RED CELL DISTRIBUTION WIDTH 13.2 % (11.5-14.0)
[2017-01-03 08:00] LABS: ALANINE AMINOTRANSFERASE 594 U/L (9-52); ALBUMIN 3.5 g/dL (3.5-5.0); ALKALINE PHOSPHATASE 367 U/L (38-126); ANION GAP 9 (5-19); ASPARTATE AMINO TRANSFERASE 435 U/L (14-36); BILIRUBIN,DIRECT 0.8 mg/dL (0.0-0.3); BILIRUBIN,TOTAL 2.5 mg/dL (0.2-1.3); BLOOD UREA NITROGEN 6 mg/dL (7-20); CALCIUM 9.3 mg/dL (8.4-10.2); CARBON DIOXIDE 28 mmol/L (22-30); CHLORIDE 105 mmol/L (98-107); CREATININE RESULT 0.66 mg/dL (0.52-1.25); GLUCOSE 103 mg/dL (75-110); LIPASE 894.6 U/L (23-300); MAGNESIUM 2.2 mg/dL (1.6-2.3); POTASSIUM 4.1 mmol/L (3.6-5.0); SODIUM 141.9 mmol/L (137-145); TOTAL PROTEIN 6.1 g/dL (6.3-8.2)
--- NOTE | 2017-01-03 08:41 | PDOC PROGRESS REPORT ---
Subjective Progress Note for:: 01/03/17 Subjective:: Upper abdominal pain. Physical Exam Vital Signs: Temp Pulse Resp BP Pulse Ox 99.0 F 60 16 97/44 L 97 01/03/17 04:00 01/03/17 04:00 01/03/17 04:00 01/03/17 04:00 01/03/17 04:00 Intake & Output 01/02/17 01/03/17 01/04/17 06:59 06:59 06:59 Intake Total 1870 830 Balance 1870 830 Weight 78.2 kg 78.1 kg General appearance: PRESENT: no acute distress Respiratory exam: PRESENT: clear to auscultation tanja Cardiovascular exam: PRESENT: RRR GI/Abdominal exam: PRESENT: other - Soft, nondistended, epigastric abdominal tenderness with no peritoneal signs. Extremities exam: PRESENT: other - No swelling and no tenderness Results Laboratory Results: 01/03/17 06:43 01/03/17 06:43 01/02/17 01/03/17 01/03/17 10:51 06:43 06:43 WBC 6.0 RBC 3.46 L Hgb 10.6 L Hct 30.9 L MCV 89 MCH 30.7 MCHC 34.3 RDW 13.2 Plt Count 210 Seg Neutrophils % 71.0 Lymphocytes % 17.9 Monocytes % 8.2 Eosinophils % 2.2 Basophils % 0.7 Absolute Neutrophils 4.3 Absolute Lymphocytes 1.1 Absolute Monocytes 0.5 Absolute Eosinophils 0.1 Absolute Basophils 0.0 Sodium 142.8 141.9 Potassium 4.2 4.1 Chloride 104 105 Carbon Dioxide 30 28 Anion Gap 9 9 BUN 8 6 L Creatinine 0.69 0.66 Est GFR ( Amer) > 60 > 60 Est GFR (Non-Af Amer) > 60 > 60 Glucose 111 H 103 Calcium 9.5 9.3 Phosphorus 4.0 Magnesium 2.2 Total Bilirubin 1.7 H 2.5 H AST 621 H 435 H ALT 617 H 594 H Alkaline Phosphatase 398 H 367 H Total Protein 6.8 6.1 L Albumin 4.0 3.5 Lipase 1055.2 H 894.6 H Impressions: Abdomen/Pelvis CT 12/29/16 21:01 IMPRESSION: NO SIGNIFICANT OR ACUTE FINDING IN THE ABDOMEN OR PELVIS ON CT SCAN WITH IV CONTRAST. Abdomen Ultrasound 12/30/16 08:44 IMPRESSION: Gallbladder contracted around nonshadowing debris. Trace pericholecystic fluid. Very mild intrahepatic biliary ductal dilatation. Distal common duct not well seen. Question distal common duct obstruction related to stone or stricture. Consider hepatobiliary scan or MRCP for followup Cholangiogram 12/31/16 00:00 IMPRESSION: INTRAOPERATIVE CHOLANGIOGRAM. Abdomen X-Ray 01/02/17 00:00 IMPRESSION: NO RADIOGRAPHIC EVIDENCE FOR ACUTE ABDOMINAL DISEASE. Hepatobiliary Scan Nuclear Medicine 01/02/17 12:10 IMPRESSION: Common bile duct obstruction. Assessment & Plan - Diagnosis (1) Gallstone pancreatitis Is this a current diagnosis for this admission?: YesPlan: Patient still with the pain and tenderness laboratory evaluation consistent with gallstone pancreatitis. Pending GI evaluation for possible ERCP. Patient otherwise stable.
[2017-01-03] MEDS: LACTOBACILLUS ACIDOPHILUS 250 MG TAB PO SCH (09:26)
[2017-01-03] MEDS: MORPHINE SULFATE 10 MG/ML INJ IV PRN ×2 (10:40→19:26)
--- NOTE | 2017-01-03 16:11 | PDOC PROGRESS REPORT ---
Subjective Progress Note for:: 01/03/17 Subjective:: Reason for visit: Follow-up acute cholecystitis and choledocholithiasis Hospital course: Per H&P "RENEE BURRIS is a 56 year old female without significant past medical history who'd been in her usual state of health until approximately 5 days ago noting some symptoms of diffuse body ache fever and chill suggestive of a viral illness which is subsequently resolved however this had the development of epigastric pain with nausea vomiting abdominal bloating and loose stools for the last 3 days prompting to seek evaluation emergency room where she's found to have acute pancreatitis and referred to the hospitalist for admission. She denies previous episode she denies alcohol, dyslipidemia or medication other than a trial of Maalox and omeprazole after the onset of symptoms." Patient subsequently diagnosed with acute cholecystitis and has undergone successful laparoscopic cholecystectomy without complication. Her liver function tests remained slightly elevated and initially trended down, her intraoperative cholangiogram was reportedly normal per my discussion with surgery. Patient remains on Unasyn. Of note hepatitis A, B, and C screen and and antinuclear antibody all negative. On 01/02/17 she began having epigastric pain and Unfortunately her LFTs and bilirubin and lipase started trending upwards with urgent HIDA scan showing probable occlusion of the common bile duct. Surgery notified, gastroenterology consultation for ERCP. Subjective: Still complaining of sharp constant epigastric pain with associated nausea but no vomiting; the pain radiates to her back and is worsened with palpation alleviated somewhat with analgesics and rest. She is passing flatus but not moving her bowels in the last 24 hours. She denies fevers, chills, chest pain, palpitations, headache, dizziness, syncope or presyncope. Anticipate ERCP this evening. Patient remains nothing by mouth at present. ROS: per HPI plus a total of 10 systems reviewed, pertinent positives and negatives noted above, remaining systems negative. Physical Exam Vital Signs: Temp Pulse Resp BP Pulse Ox 99.0 F 60 16 97/44 L 97 01/03/17 04:00 01/03/17 04:00 01/03/17 04:00 01/03/17 04:00 01/03/17 04:00 Intake & Output 01/02/17 01/03/17 01/04/17 06:59 06:59 06:59 Intake Total 1870 830 Balance 1870 830 Weight 78.2 kg 78.1 kg EXAM GENERAL: NAD; well developed, well nourished; mild obese; alert and oriented to person, place, time, situation HEENT: normocephalic, atraumatic; no conjunctival injection, no scleral icterus ; oral mucosa moist; RESPIRATORY: no accessory muscle use, no increased WOB, good air entry bilaterally; no wheezes, rales, rhonchi; no inspiratory crackles CARDIO: no JVD; RRR; no systolic murmur; no tachycardia GI: soft; nondistended; normal bowel sounds; no hepato spleno megaly; no rebound, rigidity; persistent sharp, stabbing pain on palpation of the epigastrium reproducing her discomfort, with voluntary guarding; Surgical wounds clean dry and intact with Steri-Strips in place. VASCULAR: no carotid bruit; no abdominal bruit ; no pallor; 2+ radial, DP pulse; normal capillary refill EXTREMITIES: no calf tender; no palpable cords in calf; no clubbing, cyanosis , pedal edema PSYCH: normal affect, normal mood SKIN: warm; moist; no petechiae; no telengectasias; no jaundice; no rash Results Laboratory Results: 01/03/17 06:43 01/03/17 06:43 01/03/17 01/03/17 06:43 06:43 WBC 6.0 RBC 3.46 L Hgb 10.6 L Hct 30.9 L MCV 89 MCH 30.7 MCHC 34.3 RDW 13.2 Plt Count 210 Seg Neutrophils % 71.0 Lymphocytes % 17.9 Monocytes % 8.2 Eosinophils % 2.2 Basophils % 0.7 Absolute Neutrophils 4.3 Absolute Lymphocytes 1.1 Absolute Monocytes 0.5 Absolute Eosinophils 0.1 Absolute Basophils 0.0 Sodium 141.9 Potassium 4.1 Chloride 105 Carbon Dioxide 28 Anion Gap 9 BUN 6 L Creatinine 0.66 Est GFR ( Amer) > 60 Est GFR (Non-Af Amer) > 60 Glucose 103 Calcium 9.3 Phosphorus 4.0 Magnesium 2.2 Total Bilirubin 2.5 H AST 435 H ALT 594 H Alkaline Phosphatase 367 H Total Protein 6.1 L Albumin 3.5 Lipase 894.6 H Labs reviewed, LFTs continued to trend slightly up including bilirubin. Lipase remains elevated. No leukocytosis and hemoglobin remains stable. Impressions: Abdomen/Pelvis CT 12/29/16 21:01 IMPRESSION: NO SIGNIFICANT OR ACUTE FINDING IN THE ABDOMEN OR PELVIS ON CT SCAN WITH IV CONTRAST. Abdomen Ultrasound 12/30/16 08:44 IMPRESSION: Gallbladder contracted around nonshadowing debris. Trace pericholecystic fluid. Very mild intrahepatic biliary ductal dilatation. Distal common duct not well seen. Question distal common duct obstruction related to stone or stricture. Consider hepatobiliary scan or MRCP for followup Cholangiogram 12/31/16 00:00 IMPRESSION: INTRAOPERATIVE CHOLANGIOGRAM. Abdomen X-Ray 01/02/17 00:00 IMPRESSION: NO RADIOGRAPHIC EVIDENCE FOR ACUTE ABDOMINAL DISEASE. Hepatobiliary Scan Nuclear Medicine 01/02/17 12:10 IMPRESSION: Common bile duct obstruction. Status: Imported from PACS - HIDA scan results reviewed. Assessment & Plan - Diagnosis (1) Acute cholecystitis Is this a current diagnosis for this admission?: YesPlan: Status post successful laparoscopic cholecystectomy with retained or spontaneous stone consistent with acute choledocholithiasis, anticipate ERCP by gastroenterology this evening. Maintain nothing by mouth status. Continue broad-spectrum antibiotics. Continue IV fluids. (2) Elevated LFTs Is this a current diagnosis for this admission?: YesPlan: Likely secondary to the above with reportedly negative intraoperative cholangiogram but abnormal HIDA scan. As above .Trend LFTs. (3) Hyperlipidemia Qualifiers: Hyperlipidemia type: mixed hyperlipidemia Qualified Code(s): E78.2 - Mixed hyperlipidemia Is this a current diagnosis for this admission?: YesPlan: We'll have to control with with diet and exercise at this point, really not that far from goal anyway, but due to her elevated LFTs which cannot start usual fibrillates or statin therapy at this time. Defer her PCP after discharge. - Time Time Spent with patient: 25-34 minutes Anticipated discharge: Home Within: within 24 hours - Plan Summary Plan Summary: Advance diet per GI and surgery's recommendations after ERCP completed. Once tolerating diet and reassuring trend for her LFTs and lipase confirmed she can be discharged home hopefully in the next 24-48 hours.
[2017-01-03] MEDS ORDERED: NALOXONE HCL INJ/PF 0.4 MG/1 ML SDV ONE (16:41)
[2017-01-03] MEDS ORDERED: PROMETHAZINE HCL INJ 25 MG/1 ML VIAL ONE (16:41)
[2017-01-03] MEDS ORDERED: EPINEPHRINE INJ 1 MG/10 ML DISP.SYRIN ONE (16:42)
[2017-01-03] MEDS ORDERED: FLUMAZENIL INJ 0.5 MG/5 ML VIAL IV ONE (16:42)
[2017-01-03] MEDS ORDERED: GLUCAGON,HUMAN RECOMB 1 MG INJ ONE (16:42)
[2017-01-03] MEDS: MIDAZOLAM 2 MG/2 ML INJ ONE ×4 (17:30→17:45)
[2017-01-03] MEDS: FENTANYL CITRATE INJ/PF 100 MCG/2 ML AMPUL ONE ×2 (17:32→17:36)
--- NOTE | 2017-01-03 18:16 | PDOC CONSULTATION ---
Consultation Consult Date: 01/02/17 History of Present Illness Admission Date/PCP: 12/29/16 22:54 TIFFANIE DEL ROSARIO MD History of Present Illness: This is a 56-year-old patient was admitted on 12/29/2016 with recurrent abdominal pain, nausea, and vomiting. On admission she was diagnosed with acute pancreatitis with a lipase of 5400. Her transaminases and alkaline phosphatase were also elevated. The CAT scan of the abdomen was unremarkable but her ultrasound showed echogenic debris with trace pericholecystic fluid. She had a cholecystectomy on 12/31/2016 and an intraoperative cholangiogram was read as unremarkable. She continues to have recurrent abdominal pain and her LFTs are increasing. Her bilirubin is now 2.5 with AST of 621 a.l. T of 617 and alkaline phosphatase of 398. Her lipase continue to be elevated. Consultation was requested for ERCP Past Medical History Cardiac Medical History: Reports: Hyperlipidema Neurological Medical History: Reports: Seizures Psychiatric Medical History: Reports: Bipolar Disorder Past Surgical History Past Surgical History: Reports: Appendectomy Social History Lives with: Alone Smoking Status: Current Every Day Smoker Cigarettes Packs Per Day: 1 Frequency of Alcohol Use: None Hx Recreational Drug Use: No Drugs: None Hx Prescription Drug Abuse: No - Advance Directive Resuscitation Status: Full Code Family History Family History: Other - Father of gastric carcinoma Parental Family History Reviewed: No Children Family History Reviewed: NA Sibling(s) Family History Reviewed.: NA Medication/Allergy Home Medications: No Home Medications 12/30/16 Allergies/Adverse Reactions: hydrocodone [Hydrocodone] Allergy (Verified 12/29/16 19:03) tramadol [Tramadol] Allergy (Verified 12/29/16 19:03) Review of Systems All systems: reviewed and no additional remarkable complaints except as stated Physical Exam Vital Signs: Temp Pulse Resp BP Pulse Ox 99.0 F 60 16 97/44 L 97 01/03/17 04:00 01/03/17 04:00 01/03/17 04:00 01/03/17 04:00 01/03/17 04:00 Intake & Output 01/02/17 01/03/17 01/04/17 06:59 06:59 06:59 Intake Total 1870 830 Balance 1870 830 Weight 78.2 kg 78.1 kg Exam: General: Patient is alert and looks well. HEENT: There is mild jaundice. PERRLA. Oropharynx normal Respiratory: No chest deformity. No respiratory distress. Chest wall palpitation was unremarkable. Breath sounds were normal Cardiovascular: Heart sounds 1 and 2 normal with no murmurs. Abdominal: Not distended. Soft and with epigastric tenderness. Liver and spleen not palpable. No ascites demonstrated. Bowel sounds active. Rectal examination was deferred. Extremities: No edema Neurological: Alert and oriented x4. Grossly nonfocal. Normal speech Skin: No significant rash Psychological: Normal affect Results Laboratory Results: 01/03/17 06:43 01/03/17 06:43 01/03/17 01/03/17 06:43 06:43 WBC 6.0 RBC 3.46 L Hgb 10.6 L Hct 30.9 L MCV 89 MCH 30.7 MCHC 34.3 RDW 13.2 Plt Count 210 Seg Neutrophils % 71.0 Lymphocytes % 17.9 Monocytes % 8.2 Eosinophils % 2.2 Basophils % 0.7 Absolute Neutrophils 4.3 Absolute Lymphocytes 1.1 Absolute Monocytes 0.5 Absolute Eosinophils 0.1 Absolute Basophils 0.0 Sodium 141.9 Potassium 4.1 Chloride 105 Carbon Dioxide 28 Anion Gap 9 BUN 6 L Creatinine 0.66 Est GFR ( Amer) > 60 Est GFR (Non-Af Amer) > 60 Glucose 103 Calcium 9.3 Phosphorus 4.0 Magnesium 2.2 Total Bilirubin 2.5 H AST 435 H ALT 594 H Alkaline Phosphatase 367 H Total Protein 6.1 L Albumin 3.5 Lipase 894.6 H Impressions: Abdomen/Pelvis CT 12/29/16 21:01 IMPRESSION: NO SIGNIFICANT OR ACUTE FINDING IN THE ABDOMEN OR PELVIS ON CT SCAN WITH IV CONTRAST. Abdomen Ultrasound 12/30/16 08:44 IMPRESSION: Gallbladder contracted around nonshadowing debris. Trace pericholecystic fluid. Very mild intrahepatic biliary ductal dilatation. Distal common duct not well seen. Question distal common duct obstruction related to stone or stricture. Consider hepatobiliary scan or MRCP for followup Cholangiogram 12/31/16 00:00 IMPRESSION: INTRAOPERATIVE CHOLANGIOGRAM. Abdomen X-Ray 01/02/17 00:00 IMPRESSION: NO RADIOGRAPHIC EVIDENCE FOR ACUTE ABDOMINAL DISEASE. Hepatobiliary Scan Nuclear Medicine 01/02/17 12:10 IMPRESSION: Common bile duct obstruction. Assessment & Plan - Diagnosis (1) Abnormal finding of biliary tract Is this a current diagnosis for this admission?: YesPlan: She has an increasing liver function tests with abdominal pain. Her HIDA scan showed activity in the liver but not in the common bile duct which could be from intrahepatic disease process or from common bile duct obstruction. Choledocholithiasis is a possibility. She will undergo an ERCP (2) Jaundice Is this a current diagnosis for this admission?: Yes (3) Acute pancreatitis Qualifiers: Pancreatitis type: unspecified pancreatitis type Acute pancreatitis complication: no infection or necrosis Qualified Code(s): K85.90 - Acute pancreatitis without necrosis or infection, unspecified Is this a current diagnosis for this admission?: YesPlan: The etiology for her pancreatitis is unclear. She did not have gallstones on the gallbladder specimen. Further evaluation may be needed depending on her ERCP findings (4) Elevated LFTs Is this a current diagnosis for this admission?: Yes
--- NOTE | 2017-01-03 18:21 | Operative Report ---
Operative Report DATE OF SURGERY: 01/03/17 Operative Report: Pre-op diagnosis: Jaundice and abdominal pain Post-op diagnosis: Common bile duct stricture Surgery: ERCP with sphincterotomy, cytology brushing and 10 Tajik 7 cm stent placement Medications: Versed 7 mg Fentanyl 150 mcg IV push Tissue removed: Brushing of the common bile duct Procedure: After informed consent obtained from patient, the throat was sprayed with Hurricane and conscious sedation was achieved. The ERCP endoscope was then inserted into the esophagus blindly and advanced into the stomach. The duodenum was entered and the ampulla was identified. Using the triple-lumen sphincterotomy catheter the common bile duct was freely cannulated. A cholangiogram was obtained which showed a stricture in the mid to distal common bile duct. The proximal common bile duct did appear slightly dilated. No definite stone was identified. A good sized sphincterotomy was then performed using the endocut mode. A cytology brush was then passed over the guidewire to brush the distal common bile duct. In the standard fashion a 7 cm 10 Tajik stent was then placed with good flow of bile at the end of the procedure. The pancreatic duct was not cannulated. Patient tolerated procedure well. Findings Common bile duct: Distal stricture with mild proximal dilation Intrahepatic ducts: Normal Pancreatic duct: Not cannulated Plan: Await cytology and refer for endoscopic ultrasound OPERATION: .
[2017-01-03] MEDS: ONDANSETRON HCL INJ/PF 4 MG/2 ML SDV IV PRN (18:39)
[2017-01-04] MEDS: KETOROLAC TROMETHAMINE INJ/PF 30 MG/1 ML SDV IV PRN (00:32)
[2017-01-04] MEDS: LACTOBACILLUS ACIDOPHILUS 250 MG TAB PO SCH ×3 (00:34→17:35)
[2017-01-04] MEDS: AMPICILLIN SODIUM/SULBACTAM NA 3 GM in NORMAL SALINE 100 ML IV SCH ×4 (05:17→20:30)
[2017-01-04] MEDS: RINGERS SOLUTION,LACTATED 1,000 ML IV PRN (05:44)
[2017-01-04 06:34] LABS: HEMATOCRIT 31.3 % (36.0-47.0); HEMOGLOBIN 10.7 g/dL (12.0-15.5); HGB HCT DIFFERENCE 0.8; MEAN CORPUSCULAR HEMOGLOBIN 30.4 pg (27.0-33.4); MEAN CORPUSCULAR HGB CONC 34.2 g/dL (32.0-36.0); MEAN CORPUSCULAR VOLUME 89 fl (80-97); RED BLOOD COUNT 3.52 10^6/uL (3.72-5.28); RED CELL DISTRIBUTION WIDTH 13.3 % (11.5-14.0); WHITE BLOOD COUNT 7.7 10^3/uL (4.0-10.5)
[2017-01-04 06:47] LABS: ALBUMIN 3.1 g/dL (3.5-5.0); BILIRUBIN,TOTAL 0.9 mg/dL (0.2-1.3); TOTAL PROTEIN 6.1 g/dL (6.3-8.2)
--- NOTE | 2017-01-04 09:22 | PDOC PROGRESS REPORT ---
Subjective Progress Note for:: 01/04/17 Subjective:: feeling well minimal pain tolerating diet Physical Exam Vital Signs: Temp Pulse Resp BP Pulse Ox 98.4 F 63 18 117/54 L 98 01/04/17 03:40 01/04/17 03:40 01/04/17 03:40 01/04/17 03:40 01/04/17 03:40 Intake & Output 01/03/17 01/04/17 01/05/17 06:59 06:59 06:59 Intake Total 830 2160 Output Total 2 Balance 830 2158 Weight 78.1 kg 78.2 kg Results Laboratory Results: 01/04/17 06:19 01/03/17 06:43 01/04/17 01/04/17 06:19 06:19 WBC 7.7 RBC 3.52 L Hgb 10.7 L Hct 31.3 L MCV 89 MCH 30.4 MCHC 34.2 RDW 13.3 Plt Count 214 Total Bilirubin 0.9 AST 177 H ALT 482 H Alkaline Phosphatase 335 H Total Protein 6.1 L Albumin 3.1 L Impressions: Abdomen/Pelvis CT 12/29/16 21:01 IMPRESSION: NO SIGNIFICANT OR ACUTE FINDING IN THE ABDOMEN OR PELVIS ON CT SCAN WITH IV CONTRAST. Abdomen Ultrasound 12/30/16 08:44 IMPRESSION: Gallbladder contracted around nonshadowing debris. Trace pericholecystic fluid. Very mild intrahepatic biliary ductal dilatation. Distal common duct not well seen. Question distal common duct obstruction related to stone or stricture. Consider hepatobiliary scan or MRCP for followup Cholangiogram 12/31/16 00:00 IMPRESSION: INTRAOPERATIVE CHOLANGIOGRAM. Abdomen X-Ray 01/02/17 00:00 IMPRESSION: NO RADIOGRAPHIC EVIDENCE FOR ACUTE ABDOMINAL DISEASE. Hepatobiliary Scan Nuclear Medicine 01/02/17 12:10 IMPRESSION: Common bile duct obstruction. Catheter Placement 01/03/17 00:00 IMPRESSION: IMAGE(S) OBTAINED DURING PROCEDURE. Assessment & Plan - Plan Summary Plan Summary: Doing well from surgical point May DC home , follow up in surgical clinic 2 weeks
--- NOTE | 2017-01-04 11:32 | PDOC PROGRESS REPORT ---
Subjective Progress Note for:: 01/04/17 Subjective:: Reason for visit: Follow-up acute cholecystitis and choledocholithiasis Hospital course: Per H&P "RENEE BURRIS is a 56 year old female without significant past medical history who'd been in her usual state of health until approximately 5 days ago noting some symptoms of diffuse body ache fever and chill suggestive of a viral illness which is subsequently resolved however this had the development of epigastric pain with nausea vomiting abdominal bloating and loose stools for the last 3 days prompting to seek evaluation emergency room where she's found to have acute pancreatitis and referred to the hospitalist for admission. She denies previous episode she denies alcohol, dyslipidemia or medication other than a trial of Maalox and omeprazole after the onset of symptoms." Patient subsequently diagnosed with acute cholecystitis and has undergone successful laparoscopic cholecystectomy without complication. Her liver function tests remained slightly elevated and initially trended down, her intraoperative cholangiogram was reportedly normal per my discussion with surgery. Patient remains on Unasyn. Of note hepatitis A, B, and C screen and and antinuclear antibody all negative. On 01/02/17 she began having epigastric pain and Unfortunately her LFTs and bilirubin and lipase started trending upwards with urgent HIDA scan showing probable occlusion of the common bile duct. Surgery notified, gastroenterology consultation for ERCP which was performed with sphincterotomy without complication on 01/03/2017 with findings of common bile duct stricture requiring dilatation. Subjective: She reports resolution of her epigastric pain and now just has a dull aching pain in the right upper quadrant that is nonradiating in nature worsened with certain position and cannot think of any alleviating factors and no associated symptoms. Overall she feels improved. Gastroenterology suggested we watch her and additional day monitoring for recurrent jaundice. She is tolerating her liquid diet this morning without complication. She denies chest pain, palpitations, shortness of breath, fevers, chills, vomiting or diarrhea and states her nausea has largely resolved. She is passing gas, having a lot of belching but has not had a bowel movement in over 24 hours. ROS: per HPI plus a total of 10 systems reviewed, pertinent positives and negatives noted above, remaining systems negative. Physical Exam Vital Signs: Temp Pulse Resp BP Pulse Ox 98.4 F 63 18 117/54 L 98 01/04/17 03:40 01/04/17 03:40 01/04/17 03:40 01/04/17 03:40 01/04/17 03:40 Intake & Output 01/03/17 01/04/17 01/05/17 06:59 06:59 06:59 Intake Total 830 2160 Output Total 2 Balance 830 2158 Weight 78.1 kg 78.2 kg EXAM GENERAL: NAD; well developed, well nourished; mild obese; alert and oriented to person, place, time, situation HEENT: normocephalic, atraumatic; no conjunctival injection, no scleral icterus ; oral mucosa moist; RESPIRATORY: no accessory muscle use, no increased WOB, good air entry bilaterally; no wheezes, rales, rhonchi; no inspiratory crackles CARDIO: no JVD; RRR; no systolic murmur; no tachycardia GI: soft; nondistended; normal bowel sounds; no hepato spleno megaly; no rebound, rigidity; no pain on palpation throughout the abdomen, Surgical wounds clean dry and intact with Steri-Strips in place. VASCULAR: no carotid bruit; no abdominal bruit ; no pallor; 2+ radial, DP pulse; normal capillary refill EXTREMITIES: no calf tender; no palpable cords in calf; no clubbing, cyanosis , pedal edema PSYCH: normal affect, normal mood SKIN: warm; moist; no petechiae; no telengectasias; no jaundice; no rash Results Laboratory Results: 01/04/17 06:19 01/03/17 06:43 01/04/17 01/04/17 06:19 06:19 WBC 7.7 RBC 3.52 L Hgb 10.7 L Hct 31.3 L MCV 89 MCH 30.4 MCHC 34.2 RDW 13.3 Plt Count 214 Total Bilirubin 0.9 AST 177 H ALT 482 H Alkaline Phosphatase 335 H Total Protein 6.1 L Albumin 3.1 L Labs reviewed and show improving bilirubin and LFTs, CBC is stable Assessment & Plan - Diagnosis (1) Acute cholecystitis Is this a current diagnosis for this admission?: YesPlan: Status post successful laparoscopic cholecystectomy with retained or spontaneous stone consistent with acute choledocholithiasis, status post ERCP by gastroenterology with findings of common bile duct stricture requiring dilatation. Continue clear liquid diet and advance as tolerated. Continue broad-spectrum antibiotics. Discontinue IV fluids. (2) Elevated LFTs Is this a current diagnosis for this admission?: YesPlan: Likely secondary to the above LFTs will likely remain elevated for several days to weeks. Will require intermittent outpatient monitoring by her PCP (3) Hyperlipidemia Qualifiers: Hyperlipidemia type: mixed hyperlipidemia Qualified Code(s): E78.2 - Mixed hyperlipidemia Is this a current diagnosis for this admission?: YesPlan: We'll have to control with with diet and exercise at this point, really not that far from goal anyway, but due to her elevated LFTs cannot start usual fibrillates or statin therapy at this time. Defer her PCP after discharge. - Time Time Spent with patient: 25-34 minutes Anticipated discharge: Home Within: within 24 hours - Plan Summary Plan Summary: Follow-up CBC and bilirubin in the morning and anticipate discharge home in the morning.
[2017-01-05] MEDS: AMPICILLIN SODIUM/SULBACTAM NA 3 GM in NORMAL SALINE 100 ML IV SCH (02:52)
[2017-01-05 07:19] LABS: ABSOLUTE EOSINOPHILS # (AUTO) 0.1 10^3/uL (0.0-0.6); ABSOLUTE LYMPHOCYTES (AUTO) 1.4 10^3/uL (0.5-4.7); ABSOLUTE MONOCYTES (AUTO) 0.7 10^3/uL (0.1-1.4); ABSOLUTE NEUT (AUTO) 6.4 10^3/uL (1.7-8.2); BASOPHILS % (AUTO) 0.4 % (0-2); EOSINOPHILS % (AUTO) 0.7 % (0-6); HEMOGLOBIN 10.9 g/dL (12.0-15.5); HGB HCT DIFFERENCE 0.7; LYMPHOCYTES % (AUTO) 16.3 % (13-45); MEAN CORPUSCULAR HEMOGLOBIN 30.3 pg (27.0-33.4); MEAN CORPUSCULAR VOLUME 89 fl (80-97); MONOCYTES % (AUTO) 8.2 % (3-13); RED BLOOD COUNT 3.59 10^6/uL (3.72-5.28); RED CELL DISTRIBUTION WIDTH 13.1 % (11.5-14.0); SEGMENTED NEUTROPHILS % (AUTO) 74.4 % (42-78); WHITE BLOOD COUNT 8.6 10^3/uL (4.0-10.5)
[2017-01-05 07:35] LABS: ALBUMIN 3.8 g/dL (3.5-5.0); BILIRUBIN,TOTAL 0.8 mg/dL (0.2-1.3); TOTAL PROTEIN 6.4 g/dL (6.3-8.2)
[2017-01-05 08:36] VITALS: BP 118/57
--- NOTE | 2017-01-05 11:51 | PDOC DISCHARGE SUMMARY ---
General - Admit/Disc Date/PCP Admission Date/Primary Care Provider: 12/29/16 22:54 TIFFANIE DEL ROSARIO MD Discharge Date: 01/05/17 - Discharge Diagnosis (1) Acute cholecystitis Is this a current diagnosis for this admission?: YesSummary: Status post successful laparoscopic cholecystectomy of severely diseased gallbladder. Continue course of antibiotics at home due to persistent low- grade fevers. (2) Elevated LFTs Is this a current diagnosis for this admission?: YesSummary: Related to the above compensated by, bile duct stricture. Follow-up with Dr. Antoine in 1-2 wks. (3) Hyperlipidemia Is this a current diagnosis for this admission?: YesSummary: Unable to start statin or fimbriate therapy due to elevated LFTs. We'll defer to her primary care provider to initiate in follow-up. Instructed on diet and lifestyle changes that should positively impact her numbers. (4) Common bile duct stricture Is this a current diagnosis for this admission?: YesSummary: Further evaluation per gastroenterology who is recommending referral for endoscopic ultrasound. Biopsy/brushings results still pending as of this dictation. Follow-up with gastroenterology in 1-2 weeks as above. - Additional Information Resuscitation Status: Full Code Discharge Diet: Cardiac Discharge Activity: Activity As Tolerated Home Medications: Amox Tr/Potassium Clavulanate [Augmentin 875-125 mg Tablet] 1 tab PO BID #20 tablet 01/05/17 History of Present Illness Patient complains of: Epigastric pain and nausea and vomiting History of Present Illness: RENEE BURRIS is a 56 year old female without significant past medical history who'd been in her usual state of health until approximately 5 days ago noting some symptoms of diffuse body ache fever and chill suggestive of a viral illness which is subsequently resolved however this had the development of epigastric pain with nausea vomiting abdominal bloating and loose stools for the last 3 days prompting to seek evaluation emergency room where she's found to have acute pancreatitis and referred to the hospitalist for admission. She denies previous episode she denies alcohol, dyslipidemia or medication other than a trial of Maalox and omeprazole after the onset of symptoms. Hospital Course Hospital Course: Patient subsequently diagnosed with acute cholecystitis and has undergone successful laparoscopic cholecystectomy without complication. Her liver function tests remained slightly elevated and initially trended down, her intraoperative cholangiogram was reportedly normal per my discussion with surgery. Patient remained on Unasyn. Of note hepatitis A, B, and C screen and and antinuclear antibody all negative. On 01/02/17 she began having epigastric pain and Unfortunately her LFTs and bilirubin and lipase started trending upwards with urgent HIDA scan showing probable occlusion of the common bile duct. Surgery notified, gastroenterology consultation for ERCP which was performed with sphincterotomy without complication and stent placed within common bile duct stricture. She reports resolution of her epigastric pain and now just has a dull aching pain in the right upper quadrant that is nonradiating in nature worsened with certain position and cannot think of any alleviating factors and no associated symptoms. Overall she feels improved. Gastroenterology suggested we watch her an additional day monitoring for recurrent jaundice which did not recur. She is tolerating her diet this morning without complication. She denies chest pain , palpitations, shortness of breath, fevers, chills, vomiting or diarrhea and states her nausea has largely resolved. She is passing gas, having a lot of belching and had a bowel movement this morning. At this point she is stable for discharge home with outpatient follow-up through her usual primary care provider and through gastroenterology within the next 1-2 weeks. She is to return to the emergency department for any worsening of her symptoms, high fevers, intractable nausea vomiting or diarrhea. Patient states clear understanding and willingness to comply with medical direction. All questions were asked and answered to her satisfaction. She expresses no concerns about going home today. Physical Exam Vital Signs: Temp Pulse Resp BP Pulse Ox 99.3 F 62 16 118/57 L 97 01/05/17 09:53 01/05/17 09:53 01/05/17 09:53 01/05/17 09:53 01/05/17 09:53 Intake & Output 01/04/17 01/05/17 01/06/17 06:59 06:59 06:59 Intake Total 2160 1540 240 Output Total 2 0 Balance 2158 1540 240 Weight 78.2 kg EXAM GENERAL: NAD; well developed, well nourished; mild obese; alert and oriented to person, place, time, situation HEENT: normocephalic, atraumatic; no conjunctival injection, no scleral icterus ; oral mucosa moist; RESPIRATORY: no accessory muscle use, no increased WOB, good air entry bilaterally; no wheezes, rales, rhonchi; no inspiratory crackles CARDIO: no JVD; RRR; no systolic murmur; no tachycardia GI: soft; nondistended; normal bowel sounds; no hepato spleno megaly; no rebound, rigidity; no pain on palpation throughout the abdomen, Surgical wounds clean dry and intact with Steri-Strips in place. VASCULAR: no carotid bruit; no abdominal bruit ; no pallor; 2+ radial, DP pulse; normal capillary refill EXTREMITIES: no calf tender; no palpable cords in calf; no clubbing, cyanosis , pedal edema PSYCH: normal affect, normal mood SKIN: warm; moist; no petechiae; no telengectasias; no jaundice; no rash Results Laboratory Results: 01/05/17 06:25 01/03/17 06:43 01/05/17 01/05/17 06:25 06:25 WBC 8.6 RBC 3.59 L Hgb 10.9 L Hct 32.0 L MCV 89 MCH 30.3 MCHC 34.0 RDW 13.1 Plt Count 234 Seg Neutrophils % 74.4 Lymphocytes % 16.3 Monocytes % 8.2 Eosinophils % 0.7 Basophils % 0.4 Absolute Neutrophils 6.4 Absolute Lymphocytes 1.4 Absolute Monocytes 0.7 Absolute Eosinophils 0.1 Absolute Basophils 0.0 Total Bilirubin 0.8 AST 101 H ALT 376 H Alkaline Phosphatase 318 H Total Protein 6.4 Albumin 3.8 Labs reviewed and show improving trend in her LFTs and a stable CBC. Impressions: Abdomen/Pelvis CT 12/29/16 21:01 IMPRESSION: NO SIGNIFICANT OR ACUTE FINDING IN THE ABDOMEN OR PELVIS ON CT SCAN WITH IV CONTRAST. Abdomen Ultrasound 12/30/16 08:44 IMPRESSION: Gallbladder contracted around nonshadowing debris. Trace pericholecystic fluid. Very mild intrahepatic biliary ductal dilatation. Distal common duct not well seen. Question distal common duct obstruction related to stone or stricture. Consider hepatobiliary scan or MRCP for followup Cholangiogram 12/31/16 00:00 IMPRESSION: INTRAOPERATIVE CHOLANGIOGRAM. Abdomen X-Ray 01/02/17 00:00 IMPRESSION: NO RADIOGRAPHIC EVIDENCE FOR ACUTE ABDOMINAL DISEASE. Hepatobiliary Scan Nuclear Medicine 01/02/17 12:10 IMPRESSION: Common bile duct obstruction. Catheter Placement 01/03/17 00:00 IMPRESSION: IMAGE(S) OBTAINED DURING PROCEDURE. Status: Imported from PACS - Reports reviewed Qualifiers PATEINT BEING DISCHARGED WITH ANY OF THE FOLLOWING DIAGNOSIS?: No VTE patient discharged on overlapping Therapy?: Yes Plan Discharge Plan: Discharge home with a short course of antibiotics, follow-up with gastroenterology and primary care provider in one week. Time Spent: Greater than 30 Minutes
== END 2017-01-05 10:18 | disposition home or self-care (01) | DRG 417 ==
LOC: ER 18:53 → EH 22:54 → 4W 12-30 10:20 → 2N 01-01 04:56
PROVIDERS: ADMIT Internal Medicine; ATTEND Internal Medicine
PROC: BF031ZZ Plain Radiography of Gallbladder and Bile Ducts using Low Osmolar Contrast (ICD-10-PCS; 2016-12-31)
PROC: 0FT44ZZ Resection of Gallbladder, Percutaneous Endoscopic Approach (ICD-10-PCS; principal; 2016-12-31 15:15)
PROC: 0F798DZ Dilation of Common Bile Duct with Intraluminal Device, Via Natural or Artificial Opening Endoscopic (ICD-10-PCS; 2017-01-03)
DX: K81.0 Acute cholecystitis (principal); K83.1 Obstruction of bile duct; E78.5 Hyperlipidemia, unspecified; F31.9 Bipolar disorder, unspecified; E66.9 Obesity, unspecified; Z68.30 Body mass index [BMI] 30.0-30.9, adult; R56.9 Unspecified convulsions; Z88.8 Allergy status to other drugs, medicaments and biological substances; Z80.0 Family history of malignant neoplasm of digestive organs; F17.210 Nicotine dependence, cigarettes, uncomplicated
CPT/HCPCS: 36415; 43262; 43274; 74020; 74177; 74300; 74328; 76705; 78226; 790; 80053; 80061; 80074; 80076; 80307; 81001; 82105; 83690; 83735; 84100; 85025; 85027; 85610; 86038; 86301; 88104; 88304; 88305; 93005; 93010; 94799; 96361; 96374; 96375; 99285; A9537; C2617; J0131; J0171; J0295; J1170; J1610; J1644; J1885; J2060; J2250; J2270; J2310; J2405; J2550; J2704; J3010; J3490; J7030; J7120; Q9967; Q9969; S0028; S0119

== ENCOUNTER → 2017-01-11 | Outpatient (CLI) | payer MEDICARE, MEDICAID ==
[2017-01-11 17:34] LABS: ALBUMIN 4.2 g/dL (3.5-5.0); BILIRUBIN,TOTAL 0.7 mg/dL (0.2-1.3); TOTAL PROTEIN 7.4 g/dL (6.3-8.2)
== END ==
LOC: OD 16:10
PROVIDERS: ATTEND Physician Assistant Surgical
DX: R11.0 Nausea (principal); Z90.49 Acquired absence of other specified parts of digestive tract
CPT/HCPCS: 36415; 80076

== ENCOUNTER 2017-01-22 19:32 | Inpatient (IN) | payer MEDICARE, MEDICAID ==
[2017-01-22] MEDS ORDERED: ONDANSETRON 4 MG TAB.RAPDIS PO ONE (19:53)
--- NOTE | 2017-01-22 19:53 | ER Document Report ---
ED Medical Screen (RME) - General Stated Complaint: ABDOMINAL PAIN,NAUSEA Time seen by provider: 19:48 Mode of Arrival: Wheelchair Information source: Patient Notes: Patient states she had gallbladder removal with stent placement here 2 weeks ago. Patient is a patient of Dr. Antoine, and he's made arrangements for her to go to [place] on Saturday for an endoscopy. Patient has been vomiting since this morning, unable to keep anything down. Patient is also running a fever. Patient also reports having diarrhea and abdominal pain. Saw Dr. Antoine yesterday and was doing fine until this morning. I have greeted and performed a rapid initial assessment of this patient. A comprehensive ED assessment and evaluation of the patient, analysis of test results and completion of the medical decision making process will be conducted by additional ED providers. TRAVEL OUTSIDE OF THE [place] IN LAST 30 DAYS: No - Related Data Allergies/Adverse Reactions: hydrocodone [Hydrocodone] Allergy (Verified 12/29/16 19:03) tramadol [Tramadol] Allergy (Verified 12/29/16 19:03) Past Medical History - Past Medical History Cardiac Medical History: Reports: Hx Hypercholesterolemia Neurological Medical History: Reports: Hx Seizures Renal/ Medical History: Denies: Hx Peritoneal Dialysis Psychiatric Medical History: Reports: Hx Bipolar Disorder Past Surgical History: Reports: Hx Appendectomy, Hx Gynecologic Surgery - tubal ligation - Immunizations Hx Diphtheria, Pertussis, Tetanus Vaccination: Yes Physical Exam - Abdominal Inspection: Normal Bowel sounds: Normal Tenderness: Tender
[2017-01-22 20:20] LABS: HEMATOCRIT 38.1 % (36.0-47.0); HGB HCT DIFFERENCE 0.9; MEAN CORPUSCULAR HEMOGLOBIN 29.7 pg (27.0-33.4); MEAN CORPUSCULAR VOLUME 87 fl (80-97); RED BLOOD COUNT 4.36 10^6/uL (3.72-5.28); RED CELL DISTRIBUTION WIDTH 12.8 % (11.5-14.0); WHITE BLOOD COUNT 20.1 10^3/uL (4.0-10.5)
[2017-01-22] MEDS ORDERED: MORPHINE SULFATE 10 MG/ML INJ IV ONE (20:22)
[2017-01-22] MEDS ORDERED: ONDANSETRON HCL INJ/PF 4 MG/2 ML SDV IV ONE (20:22)
[2017-01-22] MEDS ORDERED: NORMAL SALINE 1000 ML 1,000 ML IV PRN ×2 (20:22→23:15)
--- NOTE | 2017-01-22 20:25 | ER Document Report ---
ED GI/ - General Chief Complaint: Abdominal Pain Stated Complaint: ABDOMINAL PAIN,NAUSEA Time seen by provider: 20:23 Mode of Arrival: Wheelchair Information source: Patient TRAVEL OUTSIDE OF THE [place] IN LAST 30 DAYS: No - HPI Patient complains to provider of: Abdominal pain, Vomiting Onset: This morning Timing/Duration: Persistent Quality of pain: Achy, Cramping Severity at maximum: Moderate Severity in ED: Moderate Pain Level: 3 Location: Other - Diffuse Associated symptoms: Blood in emesis, Blood in stool, Diarrhea, Fever, Nausea, Vomiting Exacerbated by: Denies Relieved by: Denies Similar symptoms previously: Yes Recently seen / treated by doctor: Yes Notes: 01/22/17 20:23 Patient is a 56-year-old female presenting to the emergency room for complaints of fever with nausea, vomiting and diarrhea, diffuse abdominal cramping, symptoms started earlier today, she is a history of a recent cholecystectomy and bile duct stent placement - Related Data Allergies/Adverse Reactions: hydrocodone [Hydrocodone] Allergy (Verified 12/29/16 19:03) tramadol [Tramadol] Allergy (Verified 12/29/16 19:03) Past Medical History - General Information source: Patient - Social History Smoking Status: Current Every Day Smoker Chew tobacco use (# tins/day): No Frequency of alcohol use: None Drug Abuse: None Family History: Other - Father of gastric carcinoma Patient has suicidal ideation: No Patient has homicidal ideation: No - Past Medical History Cardiac Medical History: Reports: Hx Hypercholesterolemia Neurological Medical History: Reports: Hx Seizures Renal/ Medical History: Denies: Hx Peritoneal Dialysis Psychiatric Medical History: Reports: Hx Bipolar Disorder Past Surgical History: Reports: Hx Appendectomy, Hx Gynecologic Surgery - tubal ligation - Immunizations Hx Diphtheria, Pertussis, Tetanus Vaccination: Yes Review of Systems - Review of Systems Constitutional: Fever EENT: No symptoms reported Cardiovascular: No symptoms reported Respiratory: No symptoms reported Gastrointestinal: See HPI Genitourinary: No symptoms reported Female Genitourinary: No symptoms reported Musculoskeletal: No symptoms reported Skin: No symptoms reported Hematologic/Lymphatic: No symptoms reported Neurological/Psychological: No symptoms reported -: Yes All other systems reviewed and negative Physical Exam - Vital signs Vitals: Temp Pulse Resp BP Pulse Ox 98.1 F 130 H 18 98/71 L 99 01/22/17 19:56 01/22/17 19:56 01/22/17 19:56 01/22/17 19:56 01/22/17 19:56 Interpretation: Hypotensive, Tachycardic - General General appearance: Alert - HEENT Head: Normocephalic, Atraumatic Eyes: Normal Conjunctiva: Normal Extraocular movements intact: Yes Eyelashes: Normal Pupils: PERRL - Respiratory Respiratory status: No respiratory distress Chest status: Nontender Breath sounds: Normal Chest palpation: Normal - Cardiovascular Rhythm: Regular Heart sounds: Normal auscultation Murmur: No - Abdominal Inspection: Healed incision - Recent cholecystectomy Distension: No distension Bowel sounds: Normal Tenderness: Tender - Diffusely Organomegaly: No organomegaly - Back Back: Normal, Nontender - Extremities General upper extremity: Normal inspection, Nontender, Normal color, Normal ROM , Normal temperature General lower extremity: Normal inspection, Nontender, Normal color, Normal ROM , Normal temperature, Normal weight bearing. No: Romulo's sign - Neurological Neuro grossly intact: Yes Cognition: Normal Orientation: AAOx4 [place] Coma Scale Eye Opening: Spontaneous [place]ad[place] Coma Scale Verbal: Oriented Fadia Coma Scale Motor: Obeys Commands [place] Coma Scale Total: 15 Speech: Normal Motor strength normal: LUE, RUE, LLE, RLE Sensory: Normal - Psychological Associated symptoms: Normal affect, Normal mood - Skin Skin Temperature: Warm Skin Moisture: Dry Skin Color: Normal Course - Vital Signs Vital signs: Temp Pulse Resp BP Pulse Ox 98.1 F 130 H 18 98/71 L 99 01/22/17 19:56 01/22/17 19:56 01/22/17 19:56 01/22/17 19:56 01/22/17 19:56 - Laboratory Result Diagrams: 01/22/17 20:05 01/22/17 20:05 Laboratory results interpreted by me: 01/22/17 01/22/17 01/22/17 20:05 20:05 21:10 WBC 20.1 H Seg Neuts % (Manual) 87 H Band Neutrophils % 1 L Lymphocytes % (Manual) 7 L Abs Neuts (Manual) 17.7 H Carbon Dioxide 20 L Calcium 10.4 H Alkaline Phosphatase 140 H Lipase 1377.5 H Urine Protein 100 H Urine Ketones 20 H Urine Blood MODERATE H Ur Leukocyte Esterase MODERATE H - Consults Dr Da Silva Time consulted: 23:14 Reason for consultation: 01/22/17 23:14 Surgeon, will consult on patient, requests medicine be consulted to admit as no surgical need at this time Consulted provider: will see as inpatient Discharge - Discharge Clinical Impression: Acute pancreatitis Qualifiers: Pancreatitis type: biliary Acute pancreatitis complication: unspecified Qualified Code(s): K85.10 - Biliary acute pancreatitis without necrosis or infection Condition: Fair Disposition: ADMITTED INPATIENT Admitting Provider: Hospitalist Unit Admitted: Telemetry
[2017-01-22 20:38] LABS: ALANINE AMINOTRANSFERASE 40 U/L (9-52); ALBUMIN 4.5 g/dL (3.5-5.0); ALKALINE PHOSPHATASE 140 U/L (38-126); ANION GAP 15 (5-19); ASPARTATE AMINO TRANSFERASE 20 U/L (14-36); BILIRUBIN,TOTAL 0.6 mg/dL (0.2-1.3); BLOOD UREA NITROGEN 12 mg/dL (7-20); CALCIUM 10.4 mg/dL (8.4-10.2); CARBON DIOXIDE 20 mmol/L (22-30); CHLORIDE 104 mmol/L (98-107); CREATININE RESULT 0.85 mg/dL (0.52-1.25); GLUCOSE 107 mg/dL (75-110); LIPASE 1377.5 U/L (23-300); POTASSIUM 4.6 mmol/L (3.6-5.0); SODIUM 139.4 mmol/L (137-145); TOTAL PROTEIN 7.4 g/dL (6.3-8.2)
[2017-01-22 20:49] LABS: BAND NEUTROPHILS % (MANUAL) 1 % (3-5); BASOPHILS % (MANUAL) 0 % (0-2); EOSINOPHILS % (MANUAL) 2 % (0-6); LYMPHOCYTES % (MANUAL) 7 % (13-45); TOTAL CELLS COUNTED 100
[2017-01-22 20:50] LABS: PLATELET CLUMPS PRESENT; RBC MORPHOLOGY COMMENT NORMO-CYTIC/CHROMIC; TOXIC VACUOLATION PRESENT
[2017-01-22 21:54] LABS: APPEARANCE,URINE CLOUDY; BILIRUBIN,URINE NEGATIVE (NEGATIVE); GLUCOSE, URINE NEGATIVE (NEGATIVE); KETONES,URINE 20 mg/dL (NEGATIVE); LEUKOCYTE ESTERASE,URINE MODERATE (NEGATIVE); NITRITE,URINE NEGATIVE (NEGATIVE); PROTEIN,URINE 100 mg/dL (NEGATIVE); URINE SPECIFIC GRAVITY 1.021; UROBILINOGEN,URINE NEGATIVE mg/dL (<2.0)
[2017-01-22] MEDS ORDERED: ACETAMINOPHEN 325 MG TABLET PO PRN (23:29)
[2017-01-22] MEDS ORDERED: IPRATROPIUM/ALBUTEROL 0.5-2.5 MG/3 ML AMPUL NEB PRN (23:29)
[2017-01-22] MEDS ORDERED: MORPHINE SULFATE 10 MG/ML INJ IV PRN (23:38)
[2017-01-22] MEDS ORDERED: ERTAPENEM SODIUM 1 GM in NORMAL SALINE 50 ML IV SCH (23:45)
[2017-01-22] MEDS ORDERED: ERTAPENEM SODIUM INJ 1 GM VIAL IV SCH (23:45)
[2017-01-22] MEDS ORDERED: NORMAL SALINE 1000 ML 1,000 ML IV SCH (23:59)
--- NOTE | 2017-01-23 02:13 | CONSULTATION REPORT E ---
Consultation Report NAME: RENEE BURRIS : 1960 AGE: 56Y DATE: 01/22/2017 ED09 A TO: CHARISSA FOFANA M.D. FROM: AYO GO M.D. Requesting Physician I was asked to see the patient because she presented to the emergency department hypotensive and tachycardic with a history of abdominal surgery. On further elucidation, the patient had a left laparoscopic cholecystectomy on 12/31/16 and she had a laparoscopic cholecystectomy with angiography revealing an abnormality of the common bile duct, and subsequently she underwent stent placement during ERCP. She has been followed up by the Medicine Service and Dr. Antoine. The patient responded well to volume support. At the time I was asked to see her, she was alert, appropriate, without complaint, without tachycardia or hypotension. She complains of some discomfort in her right upper abdomen. PAST MEDICAL HISTORY, SOCIAL HISTORY, REVIEW OF SYSTEMS: Well documented in the medical record. PHYSICAL EXAM: GENERAL: The patient again is alert and appropriate. CHEST: Clear. ABDOMEN: Soft with mild tenderness. Her surgical wounds are well healed. PERIPHERAL: Unremarkable. LABORATORY DATA: Data base reveals a white count of 20,000, hemoglobin/hematocrit of 13 and 38. She has 87 *------* neutrophils and 1% bands. Sodium 139, potassium 4.6, chloride 104, CO2 20, total bilirubin 0.6, direct bilirubin 0, ALT and AST are normal at 20 and 24. Alkaline phosphatase is slightly elevated at 140. Lipase is 1377. IMPRESSION: Patient has*------*, an abnormality in the common bile duct, pending further evaluation. Stent placement is present in the common bile duct. A CT scan seemed to reveal no significant evidence of post surgical pathology or complication. Again, patient is alert and appropriate and not hemodynamically stable, and is being admitted to the Medicine Service for further GI consultation. Surgical Service will be available. DICTATING PHYSICIAN: BRYSON FOFANA M.D. [id number] PHY#: [id number] ID: [id number] JOB#: [id number] ACCT: [id number] cc:CHARISSA FOFANA M.D. >
[2017-01-23] MEDS: ONDANSETRON HCL INJ/PF 4 MG/2 ML SDV IV PRN ×3 (03:56→22:27)
--- NOTE | 2017-01-23 04:27 | PDOC H&P ---
History of Present Illness Admission Date/PCP: 01/22/17 23:29 Patient complains of: Right upper quadrant pain History of Present Illness: RENEE BURRIS is a 56 year old female with a recent past medical history of pancreatitis and laparoscopic cholecystectomy 01/10/2017 and angiography showing stricture of the common bile duct undergoing ERCP with stent placement by Dr. Antoine, biopsy result concerning for possible cholangiocarcinoma with follow-up pending. Over the last 3 days she's had increasing intensity of right upper quadrant pain associated with fever prompting her to seek evaluation emergency room where she's found to have hypotension, tachycardia, elevation of lipase and leukocytosis of 20,000. CT abdomen pelvis is negative for bile duct dilatation or pancreatic necrosis and is referred to the hospitalist for admission. Past Medical History Cardiac Medical History: Reports: Hyperlipidema Neurological Medical History: Reports: Seizures Psychiatric Medical History: Reports: Bipolar Disorder Past Surgical History Past Surgical History: Reports: Appendectomy, Cholecystectomy, Other - Common bile duct stent December 2016 Social History Information Source: Patient Smoking Status: Current Every Day Smoker Frequency of Alcohol Use: None Hx Recreational Drug Use: No Drugs: None Hx Prescription Drug Abuse: No - Advance Directive Resuscitation Status: Full Code Family History Family History: Other - Father of gastric carcinoma Parental Family History Reviewed: Yes Children Family History Reviewed: Yes Sibling(s) Family History Reviewed.: Yes Medication/Allergy Home Medications: Amox Tr/Potassium Clavulanate [Augmentin 875-125 mg Tablet] 1 tab PO BID #20 tablet 01/05/17 Allergies/Adverse Reactions: hydrocodone [Hydrocodone] Allergy (Verified 12/29/16 19:03) tramadol [Tramadol] Allergy (Verified 12/29/16 19:03) Review of Systems Constitutional: PRESENT: as per HPI, anorexia, chills, fatigue Eyes: ABSENT: visual disturbances Ears: ABSENT: hearing changes Cardiovascular: ABSENT: chest pain, dyspnea on exertion, edema, orthropnea, palpitations Respiratory: ABSENT: cough, hemoptysis Gastrointestinal: PRESENT: as per HPI, abdominal pain, bloating. ABSENT: coffee ground emesis, constipation, diarrhea, dysphagia, heartburn, hematemesis , hematochezia Genitourinary: ABSENT: dysuria, hematuria Musculoskeletal: ABSENT: joint swelling Integumentary: ABSENT: rash, wounds Neurological: ABSENT: abnormal gait, abnormal speech, confusion, dizziness, focal weakness, syncope Psychiatric: ABSENT: anxiety, depression, homidical ideation, suicidal ideation Endocrine: ABSENT: cold intolerance, heat intolerance, polydipsia, polyuria Hematologic/Lymphatic: ABSENT: easy bleeding, easy bruising Physical Exam Vital Signs: Temp Pulse Resp BP Pulse Ox 98.1 F 130 H 31 H 112/72 99 01/22/17 19:56 01/22/17 19:56 01/23/17 03:31 01/23/17 03:31 01/23/17 03:31 General appearance: PRESENT: cooperative, mild distress, well-developed, well- nourished Head exam: PRESENT: atraumatic, normocephalic Eye exam: PRESENT: conjunctiva pink, EOMI, PERRLA. ABSENT: scleral icterus Ear exam: PRESENT: normal external ear exam Mouth exam: PRESENT: moist, tongue midline Neck exam: ABSENT: carotid bruit, JVD, lymphadenopathy, thyromegaly Respiratory exam: PRESENT: clear to auscultation tanja. ABSENT: rales, rhonchi, wheezes Cardiovascular exam: PRESENT: RRR. ABSENT: diastolic murmur, rubs, systolic murmur Pulses: PRESENT: normal dorsalis pedis pul Vascular exam: PRESENT: normal capillary refill GI/Abdominal exam: PRESENT: hyperactive bowel sounds, soft, tenderness - Right upper quadrant. ABSENT: ascites, distended, guarding, mass, organolmegaly, rebound Rectal exam: PRESENT: deferred Extremities exam: PRESENT: full ROM. ABSENT: calf tenderness, clubbing, pedal edema Neurological exam: PRESENT: alert, awake, oriented to person, oriented to place , oriented to time, oriented to situation, CN II-XII grossly intact. ABSENT: motor sensory deficit Psychiatric exam: PRESENT: appropriate affect, normal mood. ABSENT: homicidal ideation, suicidal ideation Skin exam: PRESENT: dry, intact, warm. ABSENT: cyanosis, rash Results Impressions: Abdomen/Pelvis CT 01/22/17 20:21 IMPRESSION: Expected postsurgical changes in the gallbladder fossa. No fluid collection. Small amount of pneumobilia due to stent in the common bile duct. Assessment & Plan - Diagnosis (1) Choledocholithiasis Is this a current diagnosis for this admission?: YesPlan: Given history, recent common bile duct stenting and presentation with sepsis I am concerned for choledocholithiasis she receive an IV fluid challenge, empiric antibiotics and GI consultation. (2) Acute pancreatitis Qualifiers: Pancreatitis type: biliary Acute pancreatitis complication: unspecified Qualified Code(s): K85.10 - Biliary acute pancreatitis without necrosis or infection Is this a current diagnosis for this admission?: YesPlan: Please see #1 symptomatic management and nothing by mouth - Time Time Spent: 30 to 50 Minutes
--- NOTE | 2017-01-23 04:58 | CONSULTATION REPORT E ---
Consultation Report NAME: RENEE BURRIS : 1960 AGE: 56Y DATE: 01/23/2017 ED09 A TO: AVI SELLERS M.D. FROM: AYO GO M.D. Requesting Physician HISTORY: This is a 56-year-old admitted throughout the emergency room with nausea, dry heaving, diarrhea, and fever. I first saw the patient in the hospital on 01/02/2017 with acute pancreatitis and abnormal LFTs. She had an ERCP on 01/03/2017 that showed a stricture in the common bile duct. Pathology of the stricture showed atypical cells suggestive of adenocarcinoma. Her CA 19-9 was also elevated. She is awaiting endoscopic ultrasound and cholangioscopy at [facility] in about a week. I saw her yesterday when she seemed to be doing fairly well, except for some nausea. This got worse early on today and was associated with some right-sided abdominal pain. She also had body aches and felt like she had flu. There was associated diarrhea and a fever as high as 102. On presentation to the emergency room, her LFTs were normal, except an alkaline phosphatase of 140, her lipase was elevated at 1300, and her white count was 21 with a left shift. At CAT scan of the abdomen performed in the ER showed no acute findings and her pancreas was normal. PAST MEDICAL HISTORY: 1. Common bile duct stricture. 2. Hyperlipidemia. 3. Seizures. 4. Bipolar disorder. PAST SURGICAL HISTORY: 1. Recent ERCP. 2. Appendectomy. ALLERGIES: 1. HYDROCODONE. 2. TRAMADOL. REVIEW OF SYSTEMS: Other than the above is noncontributory. PHYSICAL EXAMINATION: GENERAL: Shows a lady in no distress. VITAL SIGNS: She has a heart rate of 130, blood pressure of 98/71, temperature of 98.1. HEENT: No pallor or jaundice. Oropharynx normal. NECK: No bruit. No JVD. CHEST: No deformity. LUNGS: Clear. HEART: S1 and S2 normal without murmur. ABDOMEN: Soft and nontender. Liver and spleen not palpable. Bowel sounds active. NEUROLOGIC: Grossly nonfocal. ASSESSMENT AND PLAN: 1. Abdominal pain, vomiting, and diarrhea. I suspect she has an infectious process, probably gastroenteritis. Her white count is 20 with a left shift. I would suggest intravenous fluids and antibiotics. She was started on ertapenem. I believe she should be able to go home within the next 24 hours. 2. Elevated lipase. This is suggestive of pancreatitis, but her pancreas appears normal on CAT scan. I suspect her elevated lipase is related to her biliary disease. 3. Biliary stricture. She has an appointment at [facility] in about six days and should keep that appointment. I will follow her in the office. DICTATING PHYSICIAN: AVI SELLERS M.D. [id number] PHY#: [id number] ID: [id number] JOB#: [id number] ACCT: [id number] cc:AVI SELLERS M.D. >
[2017-01-23] MEDS: HEPARIN SOD (PORCINE) 5,000 UNIT/ML 1 ML SYRINGE SUBCUT SCH ×3 (05:31→21:25)
[2017-01-23 07:03] LABS: MEAN CORPUSCULAR VOLUME 89 fl (80-97)
[2017-01-23 07:11] LABS: ABSOLUTE BASOPHILS # (AUTO) 0.1 10^3/uL (0.0-0.2); ABSOLUTE EOSINOPHILS # (AUTO) 0.2 10^3/uL (0.0-0.6); ABSOLUTE LYMPHOCYTES (AUTO) 1.6 10^3/uL (0.5-4.7); ABSOLUTE MONOCYTES (AUTO) 0.7 10^3/uL (0.1-1.4); ABSOLUTE NEUT (AUTO) 7.6 10^3/uL (1.7-8.2); BASOPHILS % (AUTO) 0.6 % (0-2); EOSINOPHILS % (AUTO) 2.1 % (0-6); HEMATOCRIT 29.4 % (36.0-47.0); HGB HCT DIFFERENCE 0.6; MEAN CORPUSCULAR HEMOGLOBIN 30.5 pg (27.0-33.4); MEAN CORPUSCULAR HGB CONC 34.1 g/dL (32.0-36.0); MONOCYTES % (AUTO) 6.7 % (3-13); SEGMENTED NEUTROPHILS % (AUTO) 74.6 % (42-78); WHITE BLOOD COUNT 10.2 10^3/uL (4.0-10.5)
[2017-01-23 07:29] LABS: ALANINE AMINOTRANSFERASE 29 U/L (9-52); ALBUMIN 2.8 g/dL (3.5-5.0); ALKALINE PHOSPHATASE 90 U/L (38-126); ANION GAP 9 (5-19); ASPARTATE AMINO TRANSFERASE 14 U/L (14-36); BILIRUBIN,TOTAL 0.5 mg/dL (0.2-1.3); BLOOD UREA NITROGEN 11 mg/dL (7-20); CALCIUM 8.6 mg/dL (8.4-10.2); CARBON DIOXIDE 21 mmol/L (22-30); CHLORIDE 114 mmol/L (98-107); CREATININE RESULT 0.77 mg/dL (0.52-1.25); GLUCOSE 92 mg/dL (75-110); POTASSIUM 4.7 mmol/L (3.6-5.0); SODIUM 143.7 mmol/L (137-145); TOTAL PROTEIN 5.2 g/dL (6.3-8.2)
--- NOTE | 2017-01-23 08:29 | EKG REPORT ---
SEVERITY:- BORDERLINE ECG - SINUS TACHYCARDIA PROBABLE LEFT ATRIAL ABNORMALITY RIGHT AXIS DEVIATION : Confirmed by: Justino Gimenez MD 23-Jan-2017 08:28:19
--- NOTE | 2017-01-23 09:21 | PDOC CONSULTATION ---
Consultation Consult Date: 01/23/17 Attending physician:: MELVA AVILEZ Consult reason:: Concern cholangiocarcinoma, here w/ elev lipase post stent placement, concern pancreatitis History of Present Illness Admission Date/PCP: 01/22/17 23:29 Patient complains of: Possible cholangiocarcinoma History of Present Illness: 56 y/o F w/ recent admit for cholecystitis, had sigrid done recently w/ acute changes noted, came 3 wks ago with concern of ascending cholangitis and was found to have CBD stricture, had ERCP and bx done, w/ noted cell concerning for adenocarcinoma, planned for EUS and further bx at [facility]. Here w/ intractable N/V elev lipase so concern for pancreatitis post ERCP. Feeling better today, bilirubin normal. Past Medical History Cardiac Medical History: Reports: Hyperlipidema Neurological Medical History: Reports: Seizures Psychiatric Medical History: Reports: Bipolar Disorder Past Surgical History Past Surgical History: Reports: Appendectomy, Cholecystectomy, Other - Common bile duct stent December 2016 Social History Smoking Status: Current Every Day Smoker Frequency of Alcohol Use: None Hx Recreational Drug Use: No Drugs: None Hx Prescription Drug Abuse: No - Advance Directive Resuscitation Status: Full Code Family History Family History: Other - Father of gastric carcinoma Parental Family History Reviewed: Yes Children Family History Reviewed: Yes Sibling(s) Family History Reviewed.: Yes Medication/Allergy Home Medications: No Home Medications 01/23/17 Allergies/Adverse Reactions: hydrocodone [Hydrocodone] Allergy (Verified 12/29/16 19:03) tramadol [Tramadol] Allergy (Verified 12/29/16 19:03) Review of Systems Constitutional: PRESENT: anorexia, weakness Gastrointestinal: PRESENT: abdominal pain, nausea, vomiting Physical Exam Vital Signs: Temp Pulse Resp BP Pulse Ox 98.1 F 130 H 14 95/51 L 96 01/22/17 19:56 01/22/17 19:56 01/23/17 08:31 01/23/17 08:31 01/23/17 08:31 General appearance: PRESENT: no acute distress, well-developed, well-nourished Head exam: PRESENT: atraumatic, normocephalic Eye exam: PRESENT: conjunctiva pink, EOMI, PERRLA. ABSENT: scleral icterus Ear exam: PRESENT: normal external ear exam Mouth exam: PRESENT: moist, tongue midline Neck exam: ABSENT: carotid bruit, JVD, lymphadenopathy, thyromegaly Respiratory exam: PRESENT: clear to auscultation tanja. ABSENT: rales, rhonchi, wheezes Cardiovascular exam: PRESENT: RRR. ABSENT: diastolic murmur, rubs, systolic murmur Pulses: PRESENT: normal dorsalis pedis pul Vascular exam: PRESENT: normal capillary refill GI/Abdominal exam: PRESENT: normal bowel sounds, soft. ABSENT: distended, guarding, mass, organolmegaly, rebound, tenderness Rectal exam: PRESENT: deferred Extremities exam: PRESENT: full ROM. ABSENT: calf tenderness, clubbing, pedal edema Neurological exam: PRESENT: alert, awake, oriented to person, oriented to place , oriented to time, oriented to situation, CN II-XII grossly intact. ABSENT: motor sensory deficit Psychiatric exam: PRESENT: appropriate affect, normal mood. ABSENT: homicidal ideation, suicidal ideation Skin exam: PRESENT: dry, intact, warm. ABSENT: cyanosis, rash Results Laboratory Results: 01/23/17 06:43 01/23/17 06:43 01/23/17 01/23/17 06:43 06:43 WBC 10.2 RBC 3.30 L Hgb 10.0 L D Hct 29.4 L MCV 89 MCH 30.5 MCHC 34.1 RDW 13.0 Plt Count 219 Seg Neutrophils % 74.6 Lymphocytes % 16.0 Monocytes % 6.7 Eosinophils % 2.1 Basophils % 0.6 Absolute Neutrophils 7.6 Absolute Lymphocytes 1.6 Absolute Monocytes 0.7 Absolute Eosinophils 0.2 Absolute Basophils 0.1 Sodium 143.7 Potassium 4.7 Chloride 114 H Carbon Dioxide 21 L Anion Gap 9 BUN 11 Creatinine 0.77 Est GFR ( Amer) > 60 Est GFR (Non-Af Amer) > 60 Glucose 92 Calcium 8.6 Magnesium 2.0 Total Bilirubin 0.5 AST 14 ALT 29 Alkaline Phosphatase 90 Total Protein 5.2 L Albumin 2.8 L Impressions: Abdomen/Pelvis CT 01/22/17 20:21 IMPRESSION: Expected postsurgical changes in the gallbladder fossa. No fluid collection. Small amount of pneumobilia due to stent in the common bile duct. Status: Image reviewed by me Assessment & Plan - Diagnosis (1) Cholangiocarcinoma Is this a current diagnosis for this admission?: YesPlan: Concern of cholangiocarcinoma, met with pt today and noted that we certainly agree w/ Dr. Antoine's plan for EUS and further staging. Offered cancer care services locally. Will help transition care as needed. Today spent >70min in discussion with pt about next steps of care. pt voiced understanding and agreement with plan - Time Time Spent: Greater than 70 Minutes Critical Time spent with patient: 25-34 minutes - Inpatient Certification Based on my medical assessment, after consideration of the patient's comorbidities, presenting symptoms, or acuity I expect that the services needed warrant INPATIENT care.: Yes I certify that my determination is in accordance with my understanding of Medicare's requirements for reasonable and necessary INPATIENT services [42 CFR 412.3e].: Yes Medical Necessity: Need For IV Fluids, Need for Pain Control
[2017-01-23] MEDS ORDERED: ERTAPENEM SODIUM 1 GM in NORMAL SALINE 50 ML IV SCH (10:00)
--- NOTE | 2017-01-23 10:41 | PDOC PROGRESS REPORT ---
Subjective Progress Note for:: 01/23/17 Subjective:: I have had discussion with patient and her at the bedside today. Patient has had 2 days of nausea, vomiting, diarrhea. One day of bloody diarrhea. Patient has had cholecystectomy within the past few weeks as well as ERCP and stent placement. She has been on antibiotics over this period of time. It's also noted that she made stir herrera beef the night prior to onset of her acute symptoms that "didn't taste quite right". She has had fevers and chills. Patient denies headache, new focal weakness, chest pain, shortness of breath, constipation. Physical Exam Vital Signs: Temp Pulse Resp BP Pulse Ox 98.1 F 86 14 95/51 L 96 01/22/17 19:56 01/23/17 08:00 01/23/17 08:31 01/23/17 08:31 01/23/17 08:31 GENERAL: No acute distress HEENT: Conjunctiva clear, nonicteric, moist mucous membranes, no JVD, midline trachea RESPIRATORY: Clear to auscultation bilaterally, no wheezes, no rhonchi CARDIAC: Regular rate and rhythm, no murmurs/gallops/rubs ABDOMEN: Soft, nondistended, nontender, positive bowel sounds, no rebound, no guarding EXTREMETIES: No edema, cyanosis, clubbing NEUROLOGIC: Alert, oriented to person/place/time, CN's grossly intact, no focal deficits SKIN: No rash, wounds PSYCH: Normal mood, normal affect Results Laboratory Results: 01/23/17 06:43 01/23/17 06:43 01/23/17 01/23/17 06:43 06:43 WBC 10.2 RBC 3.30 L Hgb 10.0 L D Hct 29.4 L MCV 89 MCH 30.5 MCHC 34.1 RDW 13.0 Plt Count 219 Seg Neutrophils % 74.6 Lymphocytes % 16.0 Monocytes % 6.7 Eosinophils % 2.1 Basophils % 0.6 Absolute Neutrophils 7.6 Absolute Lymphocytes 1.6 Absolute Monocytes 0.7 Absolute Eosinophils 0.2 Absolute Basophils 0.1 Sodium 143.7 Potassium 4.7 Chloride 114 H Carbon Dioxide 21 L Anion Gap 9 BUN 11 Creatinine 0.77 Est GFR ( Amer) > 60 Est GFR (Non-Af Amer) > 60 Glucose 92 Calcium 8.6 Magnesium 2.0 Total Bilirubin 0.5 AST 14 ALT 29 Alkaline Phosphatase 90 Total Protein 5.2 L Albumin 2.8 L Impressions: Abdomen/Pelvis CT 01/22/17 20:21 IMPRESSION: Expected postsurgical changes in the gallbladder fossa. No fluid collection. Small amount of pneumobilia due to stent in the common bile duct. Assessment & Plan - Diagnosis (1) Acute gastroenteritis Is this a current diagnosis for this admission?: YesPlan: Given patient's history of possible food related illness I will check stool culture. Given recent hospitalization and antibiotic use I will check stool for C. difficile. Start oral Cipro and Flagyl for now per recommendation of Dr. Antoine of GI. Repeat labs in a.m. and discharge patient home if stable. (2) Elevated lipase Is this a current diagnosis for this admission?: YesPlan: CT scan of the abdomen and pelvis does not show inflammatory changes in the pancreas. Elevated lipase may be secondary to nausea and vomiting related to acute gastrointestinal illness. Start clear liquids. Continue IV fluids. Repeat lipase in a.m. (3) Cholangiocarcinoma of biliary tract Is this a current diagnosis for this admission?: YesPlan: Consultation appreciated by Dr. Antoine of gastroenterology. He is following patient as an outpatient and has performed ERCP and stent placement. Patient has pathology suggesting adenocarcinoma. She has been referred to [facility] for endoscopic ultrasound and cholangioscopy. Consult appreciated by Dr. Youssef of oncology. Patient will establish oncology care with Dr. Youssef locally after discharge. - Time Time Spent with patient: 35 or more minutes
[2017-01-23] MEDS ORDERED: CIPROFLOXACIN HCL 500 MG TABLET PO ONE (11:00)
[2017-01-23] MEDS: DEXTROSE 5%-1/2 NORMAL SALINE 1,000 ML IV PRN ×3 (11:24→22:26)
[2017-01-23] MEDS ORDERED: METRONIDAZOLE 500 MG/NS RTU 100 ML IV SCH (12:00)
[2017-01-23] MEDS: MORPHINE SULFATE 10 MG/ML INJ IV PRN ×3 (12:59→22:28)
[2017-01-23] MEDS: METRONIDAZOLE 500 MG TABLET PO SCH ×2 (14:11→21:27)
[2017-01-23] MEDS ORDERED: INFLUENZA ADLT QUAD (36MOS+) 2016-17 VAC 0.5 ML SYR IM PRN (20:05)
[2017-01-23] MEDS: CIPROFLOXACIN HCL 500 MG TABLET PO SCH (21:26)
[2017-01-23] MEDS ORDERED: CIPROFLOXACIN 400 MG/D5W RTU 200 ML IV SCH (22:00)
[2017-01-24] MEDS: DEXTROSE 5%-1/2 NORMAL SALINE 1,000 ML IV PRN ×3 (04:05→16:42)
[2017-01-24 06:15] LABS: ABSOLUTE EOSINOPHILS # (AUTO) 0.3 10^3/uL (0.0-0.6); ABSOLUTE LYMPHOCYTES (AUTO) 1.1 10^3/uL (0.5-4.7); ABSOLUTE MONOCYTES (AUTO) 0.7 10^3/uL (0.1-1.4); BASOPHILS % (AUTO) 0.8 % (0-2); EOSINOPHILS % (AUTO) 5.4 % (0-6); HEMATOCRIT 29.4 % (36.0-47.0); HEMOGLOBIN 10.2 g/dL (12.0-15.5); HGB HCT DIFFERENCE 1.2; LYMPHOCYTES % (AUTO) 18.2 % (13-45); MEAN CORPUSCULAR HEMOGLOBIN 30.3 pg (27.0-33.4); MEAN CORPUSCULAR HGB CONC 34.6 g/dL (32.0-36.0); MEAN CORPUSCULAR VOLUME 87 fl (80-97); MONOCYTES % (AUTO) 11.2 % (3-13); RED BLOOD COUNT 3.36 10^6/uL (3.72-5.28); RED CELL DISTRIBUTION WIDTH 13.1 % (11.5-14.0); SEGMENTED NEUTROPHILS % (AUTO) 64.4 % (42-78); WHITE BLOOD COUNT 6.2 10^3/uL (4.0-10.5)
[2017-01-24 06:47] LABS: ALANINE AMINOTRANSFERASE 32 U/L (9-52); ALKALINE PHOSPHATASE 93 U/L (38-126); ANION GAP 10 (5-19); ASPARTATE AMINO TRANSFERASE 18 U/L (14-36); BILIRUBIN,TOTAL 0.3 mg/dL (0.2-1.3); BLOOD UREA NITROGEN 4 mg/dL (7-20); CALCIUM 8.8 mg/dL (8.4-10.2); CARBON DIOXIDE 20 mmol/L (22-30); CHLORIDE 110 mmol/L (98-107); CREATININE RESULT 0.71 mg/dL (0.52-1.25); GLUCOSE 124 mg/dL (75-110); LIPASE 235.3 U/L (23-300); SODIUM 139.7 mmol/L (137-145); TOTAL PROTEIN 5.4 g/dL (6.3-8.2)
[2017-01-24 07:00] LABS: POTASSIUM 3.7 mmol/L (3.6-5.0)
[2017-01-24] MEDS: METRONIDAZOLE 500 MG TABLET PO SCH ×3 (07:12→21:10)
[2017-01-24] MEDS: HEPARIN SOD (PORCINE) 5,000 UNIT/ML 1 ML SYRINGE SUBCUT SCH ×3 (07:13→21:10)
[2017-01-24] MEDS: ONDANSETRON HCL INJ/PF 4 MG/2 ML SDV IV PRN ×2 (07:16→21:22)
[2017-01-24] MEDS: HYDROMORPHONE HCL INJ/PF 2 MG/ML AMPULE IV PRN ×4 (08:28→21:22)
--- NOTE | 2017-01-24 08:52 | PDOC PROGRESS REPORT ---
Subjective Progress Note for:: 01/24/17 Subjective:: Pt doing to a little better, still have considerable pain 1 hr after eating apparently having hypotension w/ morphine, pt is has anaphalaxis w/ hydro/ oxycodone so will change to dilaudid Physical Exam Vital Signs: Temp Pulse Resp BP Pulse Ox 98.3 F 78 17 98/64 L 99 01/24/17 03:58 01/24/17 03:58 01/24/17 03:58 01/24/17 04:02 01/24/17 03:58 Intake & Output 01/23/17 01/24/17 01/25/17 06:59 06:59 06:59 Intake Total 1482 Balance 1482 Weight 71.2 kg General appearance: PRESENT: no acute distress, well-developed, well-nourished Head exam: PRESENT: atraumatic, normocephalic Eye exam: PRESENT: conjunctiva pink, EOMI, PERRLA. ABSENT: scleral icterus Ear exam: PRESENT: normal external ear exam Mouth exam: PRESENT: moist, tongue midline Neck exam: ABSENT: carotid bruit, JVD, lymphadenopathy, thyromegaly Respiratory exam: PRESENT: clear to auscultation tanja. ABSENT: rales, rhonchi, wheezes Cardiovascular exam: PRESENT: RRR. ABSENT: diastolic murmur, rubs, systolic murmur Pulses: PRESENT: normal dorsalis pedis pul Vascular exam: PRESENT: normal capillary refill GI/Abdominal exam: PRESENT: normal bowel sounds, soft. ABSENT: distended, guarding, mass, organolmegaly, rebound, tenderness Rectal exam: PRESENT: deferred Extremities exam: PRESENT: full ROM. ABSENT: calf tenderness, clubbing, pedal edema Neurological exam: PRESENT: alert, awake, oriented to person, oriented to place , oriented to time, oriented to situation, CN II-XII grossly intact. ABSENT: motor sensory deficit Psychiatric exam: PRESENT: appropriate affect, normal mood. ABSENT: homicidal ideation, suicidal ideation Skin exam: PRESENT: dry, intact, warm. ABSENT: cyanosis, rash Results Laboratory Results: 01/24/17 05:10 01/24/17 05:10 01/24/17 01/24/17 05:10 05:10 WBC 6.2 RBC 3.36 L Hgb 10.2 L Hct 29.4 L MCV 87 MCH 30.3 MCHC 34.6 RDW 13.1 Plt Count 212 Seg Neutrophils % 64.4 Lymphocytes % 18.2 Monocytes % 11.2 Eosinophils % 5.4 Basophils % 0.8 Absolute Neutrophils 4.0 Absolute Lymphocytes 1.1 Absolute Monocytes 0.7 Absolute Eosinophils 0.3 Absolute Basophils 0.0 Sodium 139.7 Potassium 3.7 D Chloride 110 H Carbon Dioxide 20 L Anion Gap 10 BUN 4 L Creatinine 0.71 Est GFR ( Amer) > 60 Est GFR (Non-Af Amer) > 60 Glucose 124 H Calcium 8.8 Total Bilirubin 0.3 AST 18 ALT 32 Alkaline Phosphatase 93 Total Protein 5.4 L Albumin 3.0 L Lipase 235.3 Impressions: Abdomen/Pelvis CT 01/22/17 20:21 IMPRESSION: Expected postsurgical changes in the gallbladder fossa. No fluid collection. Small amount of pneumobilia due to stent in the common bile duct. Assessment & Plan - Diagnosis (1) Cholangiocarcinoma Is this a current diagnosis for this admission?: YesPlan: Had long discussion today >45 min, having pain related to neoplasm, will start dilaudid, hopefully pt will be able to tolerate atleast fluids, she can then d/ c home and f/u w/ us as outpt, she has EUS scheduled for saturday. - Time Time Spent with patient: 35 or more minutes Critical Time spent with patient: 35 or more minutes Anticipated discharge: Home Within: within 24 hours - Inpatient Certification Based on my medical assessment, after consideration of the patient's comorbidities, presenting symptoms, or acuity I expect that the services needed warrant INPATIENT care.: Yes I certify that my determination is in accordance with my understanding of Medicare's requirements for reasonable and necessary INPATIENT services [42 CFR 412.3e].: Yes Medical Necessity: Need for Pain Control
[2017-01-24] MEDS: CIPROFLOXACIN HCL 500 MG TABLET PO SCH (11:24)
--- NOTE | 2017-01-24 12:18 | PDOC PROGRESS REPORT ---
Subjective Progress Note for:: 01/24/17 Subjective:: Patient reports that her pain is improved with the Dilaudid. She has problems with hypotension which she gets morphine. Physical Exam Vital Signs: Temp Pulse Resp BP Pulse Ox 98.5 F 64 16 113/48 L 97 01/24/17 08:35 01/24/17 11:42 01/24/17 11:42 01/24/17 08:35 01/24/17 11:42 Intake & Output 01/23/17 01/24/17 01/25/17 06:59 06:59 06:59 Intake Total 3882 Balance 3882 Weight 71.2 kg General appearance: PRESENT: no acute distress Eye exam: PRESENT: conjunctiva pink. ABSENT: scleral icterus Mouth exam: PRESENT: moist, tongue midline Neck exam: ABSENT: JVD Respiratory exam: PRESENT: clear to auscultation tanja. ABSENT: rales, rhonchi, wheezes Cardiovascular exam: PRESENT: RRR. ABSENT: diastolic murmur, rubs, systolic murmur GI/Abdominal exam: PRESENT: normal bowel sounds, soft, tenderness - Patient has moderate right upper quadrant tenderness but no guarding or rebound. ABSENT: distended, guarding, mass, organolmegaly, rebound Extremities exam: ABSENT: calf tenderness, clubbing, pedal edema Neurological exam: PRESENT: alert, awake, oriented to person, oriented to place , oriented to time, oriented to situation Psychiatric exam: PRESENT: appropriate affect Skin exam: PRESENT: dry, intact, warm. ABSENT: cyanosis, rash Results Laboratory Results: 01/24/17 05:10 01/24/17 05:10 01/24/17 01/24/17 05:10 05:10 WBC 6.2 RBC 3.36 L Hgb 10.2 L Hct 29.4 L MCV 87 MCH 30.3 MCHC 34.6 RDW 13.1 Plt Count 212 Seg Neutrophils % 64.4 Lymphocytes % 18.2 Monocytes % 11.2 Eosinophils % 5.4 Basophils % 0.8 Absolute Neutrophils 4.0 Absolute Lymphocytes 1.1 Absolute Monocytes 0.7 Absolute Eosinophils 0.3 Absolute Basophils 0.0 Sodium 139.7 Potassium 3.7 D Chloride 110 H Carbon Dioxide 20 L Anion Gap 10 BUN 4 L Creatinine 0.71 Est GFR ( Amer) > 60 Est GFR (Non-Af Amer) > 60 Glucose 124 H Calcium 8.8 Total Bilirubin 0.3 AST 18 ALT 32 Alkaline Phosphatase 93 Total Protein 5.4 L Albumin 3.0 L Lipase 235.3 Impressions: Abdomen/Pelvis CT 01/22/17 20:21 IMPRESSION: Expected postsurgical changes in the gallbladder fossa. No fluid collection. Small amount of pneumobilia due to stent in the common bile duct. Assessment & Plan - Diagnosis (1) Acute pancreatitis Qualifiers: Pancreatitis type: biliary Acute pancreatitis complication: unspecified Qualified Code(s): K85.10 - Biliary acute pancreatitis without necrosis or infection Is this a current diagnosis for this admission?: YesPlan: This is improving. We'll continue with the Dilaudid by mouth. (2) Cholangiocarcinoma Is this a current diagnosis for this admission?: YesPlan: The patient is to get an endoscopic ultrasound done on Saturday at [facility]. She was evaluated by Dr. Jaffe of oncology and his input is greatly appreciated. (3) Hyperlipidemia Qualifiers: Hyperlipidemia type: mixed hyperlipidemia Qualified Code(s): E78.2 - Mixed hyperlipidemia Is this a current diagnosis for this admission?: Yes - Time Time Spent with patient: 25-34 minutes - Inpatient Certification Medical Necessity: Need Close Monitoring Due to Risk of Patient Decompensation - Plan Summary Plan Summary: If she can tolerate her diet with Dilaudid by mouth hopefully she'll be ready for discharge home tomorrow.
--- NOTE | 2017-01-24 14:00 | Physician Advisory Note ---
Physician Advisor ProgressNote .: [facility], I have reviewed the medical record for this patient. Physician Advisor Statement: Possible documentation opportunities if attending agrees: 1. ? - "possible sepsis, present on admission, due to [infectious cause] with associated hypotension, tachycardia, & leukocytosis, despite neg BCs, ruled in/out" or "SIRS, present on admission, due to [non-infectious cause, such as acute pancreatitis]. 2. "Principal Dx" - H&P states 'choledocholithiasis', 1st PN states 'acute gastroenteritis', 2nd PN states 'Acute pancreatitis" - please clarify which is determined to be the principal dx requiring this adm, & which dx.s were r/o'd or secondary. As always, if concerned about any unstable VS or abnormal labs, please comment on them & note what doing about them, & please document each day the potential clinical problems you are concerned could occur if pt not kept in hospital for tx at this time. Thanks for your help with documentation accuracy/specificity improvement! Regi Walls MD [facility] Physician Advisor, Fellow of [employer]: H/H dropped significantly, & there was mention of bloody diarrhea, but H/H isn't much different from prior H/H, so no request for dx of AABL - likely just volume depleted initially & rehyd'd.
[2017-01-25] MEDS: DEXTROSE 5%-1/2 NORMAL SALINE 1,000 ML IV PRN ×3 (02:53→13:31)
[2017-01-25] MEDS: HYDROMORPHONE HCL INJ/PF 2 MG/ML AMPULE IV PRN ×2 (02:53→08:27)
[2017-01-25] MEDS: HEPARIN SOD (PORCINE) 5,000 UNIT/ML 1 ML SYRINGE SUBCUT SCH ×2 (05:25→13:30)
[2017-01-25] MEDS: METRONIDAZOLE 500 MG TABLET PO SCH ×2 (05:25→13:30)
--- NOTE | 2017-01-25 08:04 | PDOC PROGRESS REPORT ---
Subjective Progress Note for:: 01/25/17 Subjective:: Pt did well w/ clears and IV dilaudid + zofran Physical Exam Vital Signs: Temp Pulse Resp BP Pulse Ox 97.8 F 71 16 93/50 L 100 01/25/17 07:00 01/25/17 07:00 01/25/17 07:00 01/25/17 07:00 01/25/17 07:00 Intake & Output 01/24/17 01/25/17 01/26/17 06:59 06:59 06:59 Intake Total 3882 3270 Balance 3882 3270 Weight 71.2 kg 70.5 kg General appearance: PRESENT: no acute distress, well-developed, well-nourished Head exam: PRESENT: atraumatic, normocephalic Eye exam: PRESENT: conjunctiva pink, EOMI, PERRLA. ABSENT: scleral icterus Ear exam: PRESENT: normal external ear exam Mouth exam: PRESENT: moist, tongue midline Neck exam: ABSENT: carotid bruit, JVD, lymphadenopathy, thyromegaly Respiratory exam: PRESENT: clear to auscultation tanja. ABSENT: rales, rhonchi, wheezes Cardiovascular exam: PRESENT: RRR. ABSENT: diastolic murmur, rubs, systolic murmur Pulses: PRESENT: normal dorsalis pedis pul Vascular exam: PRESENT: normal capillary refill GI/Abdominal exam: PRESENT: normal bowel sounds, soft. ABSENT: distended, guarding, mass, organolmegaly, rebound, tenderness Rectal exam: PRESENT: deferred Extremities exam: PRESENT: full ROM. ABSENT: calf tenderness, clubbing, pedal edema Neurological exam: PRESENT: alert, awake, oriented to person, oriented to place , oriented to time, oriented to situation, CN II-XII grossly intact. ABSENT: motor sensory deficit Psychiatric exam: PRESENT: appropriate affect, normal mood. ABSENT: homicidal ideation, suicidal ideation Skin exam: PRESENT: dry, intact, warm. ABSENT: cyanosis, rash Results Laboratory Results: 01/24/17 05:10 01/24/17 05:10 Impressions: Abdomen/Pelvis CT 01/22/17 20:21 IMPRESSION: Expected postsurgical changes in the gallbladder fossa. No fluid collection. Small amount of pneumobilia due to stent in the common bile duct. Assessment & Plan - Diagnosis (1) Cholangiocarcinoma Is this a current diagnosis for this admission?: YesPlan: Likely diagnosis, pt also w/ acute pancreatitis on admit, now resolving, advancing diet to full liquid, con't diluadid, if pt does well with this possible d/c in pm w/ rx for dilaudid and zofran ODT. Has f/u at [facility] for EUS on saturday, see me in 2 weeks - Time Time Spent with patient: 35 or more minutes Critical Time spent with patient: 35 or more minutes Medications reviewed and adjusted accordingly: Yes Anticipated discharge: Home Within: within 24 hours
[2017-01-25 08:19] LABS: ABSOLUTE EOSINOPHILS # (AUTO) 0.2 10^3/uL (0.0-0.6); ABSOLUTE LYMPHOCYTES (AUTO) 1.7 10^3/uL (0.5-4.7); ABSOLUTE MONOCYTES (AUTO) 0.6 10^3/uL (0.1-1.4); ABSOLUTE NEUT (AUTO) 3.1 10^3/uL (1.7-8.2); BASOPHILS % (AUTO) 0.7 % (0-2); EOSINOPHILS % (AUTO) 4.3 % (0-6); HEMATOCRIT 30.5 % (36.0-47.0); HEMOGLOBIN 10.6 g/dL (12.0-15.5); HGB HCT DIFFERENCE 1.3; LYMPHOCYTES % (AUTO) 29.6 % (13-45); MEAN CORPUSCULAR HEMOGLOBIN 30.5 pg (27.0-33.4); MEAN CORPUSCULAR HGB CONC 34.9 g/dL (32.0-36.0); MEAN CORPUSCULAR VOLUME 88 fl (80-97); MONOCYTES % (AUTO) 10.4 % (3-13); RED BLOOD COUNT 3.48 10^6/uL (3.72-5.28); RED CELL DISTRIBUTION WIDTH 12.9 % (11.5-14.0); WHITE BLOOD COUNT 5.6 10^3/uL (4.0-10.5)
[2017-01-25] MEDS: ONDANSETRON HCL INJ/PF 4 MG/2 ML SDV IV PRN (08:26)
[2017-01-25 09:03] LABS: ALANINE AMINOTRANSFERASE 31 U/L (9-52); ALBUMIN 3.2 g/dL (3.5-5.0); ALKALINE PHOSPHATASE 84 U/L (38-126); ANION GAP 12 (5-19); ASPARTATE AMINO TRANSFERASE 16 U/L (14-36); BILIRUBIN,TOTAL 0.3 mg/dL (0.2-1.3); CARBON DIOXIDE 20 mmol/L (22-30); CHLORIDE 108 mmol/L (98-107); CREATININE RESULT 0.59 mg/dL (0.52-1.25); GLUCOSE 101 mg/dL (75-110); LIPASE 426.1 U/L (23-300); POTASSIUM 3.2 mmol/L (3.6-5.0); SODIUM 139.8 mmol/L (137-145); TOTAL PROTEIN 5.2 g/dL (6.3-8.2)
[2017-01-25 09:07] LABS: BLOOD UREA NITROGEN < 2 mg/dL (7-20)
[2017-01-25 11:19] VITALS: BP 104/46
--- NOTE | 2017-01-25 14:58 | PDOC DISCHARGE SUMMARY ---
General - Admit/Disc Date/PCP Admission Date/Primary Care Provider: 01/22/17 23:29 Discharge Date: 01/25/17 - Discharge Diagnosis (1) Acute pancreatitis Is this a current diagnosis for this admission?: Yes (2) Cholangiocarcinoma Is this a current diagnosis for this admission?: Yes (3) Hyperlipidemia Is this a current diagnosis for this admission?: Yes - Additional Information Resuscitation Status: Full Code Discharge Diet: Full Liquids Discharge Activity: Activity As Tolerated Home Medications: Hydromorphone HCl [Dilaudid 2 mg Tablet] 2 mg PO Q4HP PRN #30 tablet 01/25/17 Metronidazole [Flagyl 500 mg Tablet] 500 mg PO Q8 #20 tablet 01/25/17 Ondansetron [Zofran Odt] 8 mg PO Q4HP PRN #30 tab.rapdis 01/25/17 History of Present Illness History of Present Illness: RENEE BURRIS is a 56 year old female who presented with abdominal pain and nausea vomiting. The patient September 09 had a laparoscopic cholecystectomy and angiography showed stricture of the common bile duct. Patient underwent ERCP with stent placement and there is concerned that this is a cholangiocarcinoma. The patient has an outpatient appointment scheduled for January 28 at [facility] for evaluation. She presented because of worsening abdominal pain and is admitted for treatment Hospital Course Hospital Course: 56-year-old female recently diagnosed with malignancy of the bile system most likely a cholangiocarcinoma. The patient is scheduled for an outpatient evaluation with endoscopic ultrasound at [facility] on January 28. The patient presented with abdominal pain consistent with pancreatitis and she was made nothing by mouth and given narcotics. She continued to have pain but it did improve. She was started on liquid diet was able to tolerate that. The patient also has history C. difficile is currently getting treatment and will go home on a one-week additional course of Flagyl for treatment of this. Physical Exam Vital Signs: Temp Pulse Resp BP Pulse Ox 97.9 F 67 16 104/46 L 100 01/25/17 11:09 01/25/17 11:09 01/25/17 11:09 01/25/17 11:09 01/25/17 11:09 Intake & Output 01/24/17 01/25/17 01/26/17 06:59 06:59 06:59 Intake Total 3882 3270 Balance 3882 3270 Weight 71.2 kg 70.5 kg General appearance: PRESENT: no acute distress Eye exam: PRESENT: conjunctiva pink. ABSENT: scleral icterus Mouth exam: PRESENT: moist, tongue midline Neck exam: ABSENT: carotid bruit, JVD, lymphadenopathy, thyromegaly Respiratory exam: PRESENT: clear to auscultation tanja. ABSENT: rales, rhonchi, wheezes Cardiovascular exam: PRESENT: RRR. ABSENT: diastolic murmur, rubs, systolic murmur GI/Abdominal exam: PRESENT: normal bowel sounds, soft, tenderness - Mild diffuse tenderness worse in the right upper quadrant. ABSENT: distended, guarding, mass, organolmegaly, rebound Extremities exam: ABSENT: calf tenderness, clubbing, pedal edema Neurological exam: PRESENT: alert, awake, oriented to person, oriented to place , oriented to time, oriented to situation Psychiatric exam: PRESENT: appropriate affect Results Laboratory Results: 01/25/17 07:13 01/25/17 07:13 01/25/17 01/25/17 07:13 07:13 WBC 5.6 RBC 3.48 L Hgb 10.6 L Hct 30.5 L MCV 88 MCH 30.5 MCHC 34.9 RDW 12.9 Plt Count 221 Seg Neutrophils % 55.0 Lymphocytes % 29.6 Monocytes % 10.4 Eosinophils % 4.3 Basophils % 0.7 Absolute Neutrophils 3.1 Absolute Lymphocytes 1.7 Absolute Monocytes 0.6 Absolute Eosinophils 0.2 Absolute Basophils 0.0 Sodium 139.8 Potassium 3.2 L Chloride 108 H Carbon Dioxide 20 L Anion Gap 12 BUN < 2 L Creatinine 0.59 Est GFR ( Amer) > 60 Est GFR (Non-Af Amer) > 60 Glucose 101 Calcium 9.0 Total Bilirubin 0.3 AST 16 ALT 31 Alkaline Phosphatase 84 Total Protein 5.2 L Albumin 3.2 L Lipase 426.1 H 01/23/17 16:45 Stool - Stool - Final Impressions: Abdomen/Pelvis CT 01/22/17 20:21 IMPRESSION: Expected postsurgical changes in the gallbladder fossa. No fluid collection. Small amount of pneumobilia due to stent in the common bile duct. Plan Discharge Plan: Patient is discharged home in stable condition. She will follow with primary care as well as GI in 1 week. Time Spent: Less than 30 Minutes
== END 2017-01-25 16:08 | disposition home or self-care (01) | DRG 439 ==
LOC: ER 19:32 → EH 23:20 → UNDOADMIN 23:20 → EH 23:29 → 4W 01-23 12:31
PROVIDERS: ADMIT Internal Medicine; ATTEND Internal Medicine
DX: K85.10 Biliary acute pancreatitis without necrosis or infection (principal); C24.9 Malignant neoplasm of biliary tract, unspecified; E78.5 Hyperlipidemia, unspecified; R10.11 Right upper quadrant pain; G40.909 Epilepsy, unspecified, not intractable, without status epilepticus; F31.9 Bipolar disorder, unspecified; F17.210 Nicotine dependence, cigarettes, uncomplicated; K52.9 Noninfective gastroenteritis and colitis, unspecified
CPT/HCPCS: 36415; 74177; 80053; 81001; 82977; 83690; 83735; 85025; 87040; 87045; 87086; 87205; 87493; 93005; 93010; 96361; 96374; 96375; 99285; J1170; J1644; J2270; J2405; J7030

== ENCOUNTER 2017-02-07 18:28 | Emergency (ER) | payer MEDICARE, MEDICAID ==
--- NOTE | 2017-02-07 18:39 | ER Document Report ---
ED Medical Screen (RME) - General Stated Complaint: ABDOMINAL PAIN Time seen by provider: 18:37 Mode of Arrival: Wheelchair Information source: Patient Notes: 56-year-old female presents to ED for abdominal pain and chest pain. States she her gallbladder was removed here 6 weeks ago and a plastic stent in the bile down they said that the stent backed up they took the plastic stent out and put a metal stent in and [facility]. 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 They're planning to take the head of the pancreas out then chemotherapy and radiation. Her doctor is Dr. Youssef is her oncologist. I have greeted and performed a rapid initial assessment of this patient. A comprehensive ED assessment and evaluation of the patient, analysis of test results and completion of medical decision making process will be conducted by an additional ED providers. TRAVEL OUTSIDE OF THE [place] IN LAST 30 DAYS: No - Related Data Allergies/Adverse Reactions: hydrocodone [Hydrocodone] Allergy (Verified 12/29/16 19:03) tramadol [Tramadol] Allergy (Verified 12/29/16 19:03) Past Medical History - Past Medical History Cardiac Medical History: Reports: Hx Hypercholesterolemia Neurological Medical History: Reports: Hx Seizures Renal/ Medical History: Denies: Hx Peritoneal Dialysis Psychiatric Medical History: Reports: Hx Bipolar Disorder Denies: Hx Depression Past Surgical History: Reports: Hx Appendectomy, Hx Cholecystectomy, Hx Gynecologic Surgery - tubal ligation, Other - Common bile duct stent December 2016 - Immunizations Hx Diphtheria, Pertussis, Tetanus Vaccination: Yes Physical Exam - Vital signs Vitals: Temp Pulse Resp BP Pulse Ox 98.5 F 124 H 20 143/86 H 98 02/07/17 18:34 02/07/17 18:34 02/07/17 18:34 02/07/17 18:34 02/07/17 18:34 Course - Vital Signs Vital signs: Temp Pulse Resp BP Pulse Ox 98.5 F 124 H 20 143/86 H 98 02/07/17 18:34 02/07/17 18:34 02/07/17 18:34 02/07/17 18:34 02/07/17 18:34
[2017-02-07 19:13] LABS: ABSOLUTE BASOPHILS # (AUTO) 0.1 10^3/uL (0.0-0.2); ABSOLUTE EOSINOPHILS # (AUTO) 0.1 10^3/uL (0.0-0.6); ABSOLUTE LYMPHOCYTES (AUTO) 2.1 10^3/uL (0.5-4.7); ABSOLUTE MONOCYTES (AUTO) 0.8 10^3/uL (0.1-1.4); ABSOLUTE NEUT (AUTO) 11.2 10^3/uL (1.7-8.2); BASOPHILS % (AUTO) 0.4 % (0-2); EOSINOPHILS % (AUTO) 0.6 % (0-6); HEMATOCRIT 40.1 % (36.0-47.0); HEMOGLOBIN 13.9 g/dL (12.0-15.5); HGB HCT DIFFERENCE 1.6; LYMPHOCYTES % (AUTO) 14.9 % (13-45); MEAN CORPUSCULAR HEMOGLOBIN 30.3 pg (27.0-33.4); MEAN CORPUSCULAR HGB CONC 34.6 g/dL (32.0-36.0); MEAN CORPUSCULAR VOLUME 88 fl (80-97); MONOCYTES % (AUTO) 5.5 % (3-13); RED BLOOD COUNT 4.59 10^6/uL (3.72-5.28); RED CELL DISTRIBUTION WIDTH 13.8 % (11.5-14.0); SEGMENTED NEUTROPHILS % (AUTO) 78.6 % (42-78); WHITE BLOOD COUNT 14.2 10^3/uL (4.0-10.5)
[2017-02-07 19:24] LABS: ALANINE AMINOTRANSFERASE 28 U/L (9-52); ALBUMIN 4.4 g/dL (3.5-5.0); ALKALINE PHOSPHATASE 120 U/L (38-126); ANION GAP 12 (5-19); ASPARTATE AMINO TRANSFERASE 18 U/L (14-36); BILIRUBIN,TOTAL 0.7 mg/dL (0.2-1.3); BLOOD UREA NITROGEN 12 mg/dL (7-20); CALCIUM 10.6 mg/dL (8.4-10.2); CARBON DIOXIDE 23 mmol/L (22-30); CHLORIDE 106 mmol/L (98-107); CREATININE RESULT 0.67 mg/dL (0.52-1.25); GLUCOSE 117 mg/dL (75-110); LIPASE 338.6 U/L (23-300); POTASSIUM 4.3 mmol/L (3.6-5.0); TOTAL PROTEIN 7.6 g/dL (6.3-8.2)
[2017-02-07] MEDS ORDERED: HYDROMORPHONE HCL INJ/PF 2 MG/ML AMPULE IV ONE (19:48)
[2017-02-07] MEDS ORDERED: ONDANSETRON HCL INJ/PF 4 MG/2 ML SDV IV ONE (19:48)
--- NOTE | 2017-02-07 19:56 | ER Document Report ---
ED General - General Chief Complaint: Abdominal Cramping Stated Complaint: ABDOMINAL PAIN Time seen by provider: 19:30 Mode of Arrival: Wheelchair Information source: Patient Notes: 56-year-old female status post laparoscopic cholecystectomy in August and had subsequent biliary stent placement by Dr. Antoine. Patient had readmission earlier this month with findings concerning for pancreatic cancer and cholangiocarcinoma and was transferred [facility] where she underwent discopathy ultrasound and biopsy with confirmation of the diagnosis. Patient was discharged on January 28 and has an appointment with Dr. Manju POWELL local oncologist February 11 are they're supposed to discuss these findings and possibly obtain referral to an oncology surgeon for Whipple procedure. She reports that there are since her procedure at [facility] she has had right upper quadrant pain that radiates to the left upper quadrant. She reports that pain to be controlled with oral Dilaudid but she ran out of that 3 days after discharge and has had increasing pain ever read a since then. Patient reports that she had no bowel movement after January 30 in her primary care physician Dr. Lundy prescribed Senokot 2 days ago. She took that with resolution of the constipation but has had frequent bowel movements that are now watery ever since. She reports that she has had worsening diffuse abdominal cramping that comes and goes the past 2 days which is different in character than the right upper quadrant pain she's been having since her procedure [facility]. She reports nausea but no vomiting and says she's had very little by mouth intake since her discharge from [facility]. She denies fever, chills, cough, shortness breath, chest pain, back pain, dysuria, hematemesis, hematochezia, or melena. Physical Exam: General: Alert, appears uncomfortable. HEENT: Normocephalic. Atraumatic. PERRLA. Extraocular movements intact. Oropharynx clear. Mucous Membranes dry Neck: Supple. Non-tender. No JVD Respiratory: No respiratory distress. Clear and equal breath sounds bilaterally. Cardiovascular: Tachycardic PMI not displaced Abdominal: Normal Inspection. Soft, moderate right upper quadrant tenderness mild left upper quadrant tenderness patient has paroxysms of diffuse abdominal pain with lower abdominal tenderness at those times but not otherwise. No guarding rebound rigidity or referred pain No distension. Normal Bowel Sounds. Back: Non-tender. No deformity or step off. Extremities: Moves all four extremities. Upper extremities: Normal inspection. Non-tender. Normal color. Normal ROM. Normal temperature. Lower extremities: Normal inspection. Non-tender. No edema. Normal color. Normal ROM. Normal temperature. Neurological: Speech clear mentation normal moves all extremities well Psychological: Normal affect. Normal Mood. Skin: Warm. Dry. Normal color. TRAVEL OUTSIDE OF THE [place] IN LAST 30 DAYS: No - Related Data Allergies/Adverse Reactions: hydrocodone [Hydrocodone] Allergy (Verified 02/07/17 18:39) tramadol [Tramadol] Allergy (Verified 02/07/17 18:39) Past Medical History - General Information source: Patient - Social History Smoking Status: Current Every Day Smoker Chew tobacco use (# tins/day): No Frequency of alcohol use: None Drug Abuse: None Family History: Other - Father of gastric carcinoma Patient has suicidal ideation: No Patient has homicidal ideation: No - Past Medical History Cardiac Medical History: Reports: Hx Hypercholesterolemia Neurological Medical History: Reports: Hx Seizures Renal/ Medical History: Denies: Hx Peritoneal Dialysis Psychiatric Medical History: Reports: Hx Bipolar Disorder Denies: Hx Depression Past Surgical History: Reports: Hx Appendectomy, Hx Cholecystectomy, Hx Gynecologic Surgery - tubal ligation, Other - Common bile duct stent December 2016 - Immunizations Hx Diphtheria, Pertussis, Tetanus Vaccination: Yes Review of Systems - Review of Systems Constitutional: Malaise, Weakness. denies: Chills, Fever EENT: denies: Ear pain, Throat pain Cardiovascular: denies: Chest pain, Dyspnea Respiratory: denies: Cough, Short of breath Gastrointestinal: See HPI Genitourinary: denies: Burning, Dysuria Female Genitourinary: denies: Musculoskeletal: denies: Back pain, Leg swelling Skin: denies: Rash Hematologic/Lymphatic: denies: Swollen glands Neurological/Psychological: denies: Weakness, Numbness Physical Exam - Vital signs Vitals: Temp Pulse Resp BP Pulse Ox 98.5 F 124 H 20 143/86 H 98 02/07/17 18:34 02/07/17 18:34 02/07/17 18:34 02/07/17 18:34 02/07/17 18:34 Course - Re-evaluation Re-evalutation: 02/07/17 21:37 Reevaluation of patient shows her to be feeling much better. Abdomen is soft with only trace diffuse tenderness no guarding rebound rigidity. Patient's physicians [facility] apparently had concerns about narcotic use postprocedure and certainly that maybe contributed somewhat to her constipation but also believe that she is likely going to be considerable chronic pain from her abdominal cancer and we'll prescribe oral Dilaudid for that until she follows up with her oncologist in 4 days. Also prescribed Phenergan for nausea. She does not have a surgical abdomen and CT abdomen pelvis has not identified any new or different pathology other than what had already been identified - Vital Signs Vital signs: Temp Pulse Resp BP Pulse Ox 98.5 F 124 H 20 143/86 H 98 02/07/17 18:34 02/07/17 18:34 02/07/17 18:34 02/07/17 18:34 02/07/17 18:34 - Laboratory Result Diagrams: 02/07/17 18:50 02/07/17 18:50 Laboratory results interpreted by me: 02/07/17 02/07/17 18:50 18:50 WBC 14.2 H Seg Neutrophils % 78.6 H Absolute Neutrophils 11.2 H Glucose 117 H Calcium 10.6 H Lipase 338.6 H - Diagnostic Test Radiology reviewed: Image reviewed, Reports reviewed - EKG Interpretation by Me Additional EKG results interpreted by me: 02/07/17 21:45 EKG reviewed by myself sinus rhythm at 97 no acute changes Discharge - Discharge Clinical Impression: Abdominal pain Qualifiers: Abdominal location: generalized Qualified Code(s): R10.84 - Generalized abdominal pain Condition: Stable Disposition: HOME, SELF-CARE Instructions: Abdominal Pain ([facility]) Additional Instructions: Keep your appointment with Dr. Youssef on Saturday. Do not take any more pain medicine than you absolutely have to as it may make her constipation worse Prescriptions: Hydromorphone HCl [Dilaudid 2 mg Tablet] 2 mg PO Q8H PRN #10 tablet PRN Reason: Promethazine HCl [Phenergan 25 mg Tablet] 1 tab PO Q6H PRN #30 tablet PRN Reason: Referrals: THOMAS LUNDY MD [Primary Care Provider] - Follow up as needed OXCHILT YOUSSEF MD [ACTIVE STAFF] - 02/11/17
[2017-02-07] MEDS: NORMAL SALINE 1000 ML 1,000 ML IV PRN ×2 (20:27→22:07)
[2017-02-07 22:44] VITALS: BP 104/59
--- NOTE | 2017-02-08 05:37 | EKG REPORT ---
SEVERITY:- ABNORMAL ECG - SINUS RHYTHM LEFT ATRIAL ABNORMALITY : Confirmed by: Arlin Rondon MD 08-Feb-2017 05:36:26
== END 2017-02-07 23:27 | disposition home or self-care (01) ==
LOC: ER 18:28
DX: R10.84 Generalized abdominal pain (principal); R53.81 Other malaise; R53.1 Weakness; R11.0 Nausea; F17.200 Nicotine dependence, unspecified, uncomplicated; E78.00 Pure hypercholesterolemia, unspecified; Z88.6 Allergy status to analgesic agent; Z90.49 Acquired absence of other specified parts of digestive tract; Z98.51 Tubal ligation status
CPT/HCPCS: 93005; 99284; 96361; 96374; 96375; 36415; 83690; 85025; 80053; 74177; 93010; J1170; J2405; J7030

== ENCOUNTER → 2017-02-17 | Outpatient (CLI) | payer MEDICARE, MEDICAID | LOC: RAD 17:52 | PROVIDERS: ATTEND Internal Medicine | DX: C22.1 Intrahepatic bile duct carcinoma (principal) | CPT/HCPCS: 78815; A9552 ==

== ENCOUNTER 2017-04-01 07:40 | Day surgery (SDC) | payer MEDICARE, MEDICAID ==
[2017-04-01] MEDS ORDERED: BACITRACIN INJ 50,000 UNIT VIAL IR SCH ×2 (08:00)
[2017-04-01] MEDS ORDERED: CEFAZOLIN 1 GM/D5W RTU 1 GM/50 ML RTUPB IV PRN (08:15)
--- NOTE | 2017-04-01 08:33 | EKG REPORT ---
SEVERITY:- OTHERWISE NORMAL ECG - SINUS TACHYCARDIA LEFT AXIS DEVIATION : Confirmed by: Murray Holt 01-Apr-2017 08:32:46
[2017-04-01 08:37] LABS: HEMATOCRIT 34.8 % (36.0-47.0); HEMOGLOBIN 11.6 g/dL (12.0-15.5); MEAN CORPUSCULAR HEMOGLOBIN 30.7 pg (27.0-33.4); MEAN CORPUSCULAR HGB CONC 33.5 g/dL (32.0-36.0); MEAN CORPUSCULAR VOLUME 92 fl (80-97); RED CELL DISTRIBUTION WIDTH 15.7 % (11.5-14.0); WHITE BLOOD COUNT 4.9 10^3/uL (4.0-10.5)
[2017-04-01 09:09] LABS: ANION GAP 5 (5-19); BLOOD UREA NITROGEN 9 mg/dL (7-20); CALCIUM 9.4 mg/dL (8.4-10.2); CARBON DIOXIDE 26 mmol/L (22-30); CHLORIDE 105 mmol/L (98-107); CREATININE RESULT 0.57 mg/dL (0.52-1.25); GLUCOSE 104 mg/dL (75-110); POTASSIUM 4.8 mmol/L (3.6-5.0); SODIUM 136.3 mmol/L (137-145)
[2017-04-01] MEDS ORDERED: MIDAZOLAM 2 MG/2 ML INJ ONE (10:17)
[2017-04-01] MEDS ORDERED: FENTANYL CITRATE INJ/PF 100 MCG/2 ML AMPUL ONE (10:17)
[2017-04-01] MEDS ORDERED: LIDOCAINE 0.5% INJ-PF (5 MG/ML) 50 ML SDV ONE (10:18)
[2017-04-01] MEDS ORDERED: DIAZEPAM 5 MG TABLET ONE (10:37)
--- NOTE | 2017-04-01 12:08 | PDOC DISCHARGE SUMMARY ---
Discharge Summary (SDC) - Discharge Final Diagnosis: Duct cancer Date of Surgery: 04/01/17 Discharge Date: 04/01/17 Condition: Fair Treatment or Instructions: #1 discharge patient after recovery per ASU criteria. #2 dressings to be left in place, clean and dry until office. #3 may shower in 48 hours, keep dressing is clean as possible. #4 hold off work until evaluated in office. #5 medications per medication reconciliation sheet. Discharge Diet: As Tolerated Respiratory Treatments at Home: Deep Breathing/Coughing Discharge Activity: Activity As Tolerated Report the Following to Your Physician Immediately: Shortness of Breath, Unusual Bleeding
[2017-04-01 12:54] VITALS: BP 124/70
--- NOTE | 2017-04-01 14:02 | Operative Report ---
Operative Report DATE OF SURGERY: 04/01/17 PREOPERATIVE DIAGNOSIS: Pancreatic cancer POSTOPERATIVE DIAGNOSIS: Pancreatic cancer OPERATION: #1 ultrasound evaluation of right internal jugular vein. Insertion of Port-A-Cath using real-time ultrasound access in right internal jugular vein. #3 angiogram and interpretation. SURGEON: MARIA C LLAMAS REFRACTIVE SURGEON: none ANESTHESIA: Moderate Sedation TISSUE REMOVED OR ALTERED: Not applicable COMPLICATIONS: None ESTIMATED BLOOD LOSS: 10 mL. INTRAOPERATIVE FINDINGS: Satisfactory right internal jugular vein estimated to be 1.5 cm in diameter. Satisfactory is supportive Port-A-Cath. Port-A-Cath massive position with the tip just down in the right atrium. Easy egress of blood and ingress of heparinized solution. Angiogram demonstrated smooth flow of contrast through the right atrium, ventricle and pulmonary outflow tract. PROCEDURE: After obtaining informed consent, the patient was taken to the [operating room] and positioned supine. The [right] neck and chest were prepared with chlorhexidine and draped out with sterile linen. After the " universal timeout ", in which it was verified that the patient continued to receive antibiotic, the procedure commenced. A steriley sheathed ultrasound probe was used to evaluate the [right] internal jugular vein. Local anesthesia was infiltrated adjacent to the probe. Access into the [right] internal jugular vein was obtained using a micropuncture needle, followed by micropuncture wire and then a micropuncture catheter. This was followed by introduction of a 0.035 guidewire the tip of which was placed down into the inferior vena cava . The port sites was marked , locally anesthetized and incision made. Dissection now proceeded to the deep subcutaneous subcutaneous tissues so that a pocket for the port was made. Meticulous hemostasis was secured and the catheter was tunneled between the 2 incisions. Proximally, the catheter was now positioned using a peel-away sheath. Distally the catheter was tailored to an appropriate length and then mated to the port using the contained fixating device. The port was now placed in the pocket and the catheter optimally positioned. The port was accessed with a Duron needle and an angiogram done under digital subtraction. The findings as dictated. With adequate and satisfactory positioning, both lumens of the chamber were irrigated with heparinized solution. The wounds were now closed using interrupted 3-0 PDS to the subcutaneous tissues and a continuous subcuticular suture of 4-0 Monocryl to the skin. These are reinforced with Steri-Strips over benzoin and then dressings applied. Time: 0.4 Minute. Dose: 8 m Gy Contrast: 5 mls. Isovue 300. Copies of the dictated operative report for Dr. Maria C Benz MD.
== END 2017-04-01 12:45 | disposition home or self-care (01) ==
LOC: CCL 07:40
PROVIDERS: ATTEND Surgery
PROC: 05HM33Z Insertion of Infusion Device into Right Internal Jugular Vein, Percutaneous Approach (ICD-10-PCS; principal; 2017-04-01)
DX: C25.0 Malignant neoplasm of head of pancreas (principal); C22.1 Intrahepatic bile duct carcinoma; E78.00 Pure hypercholesterolemia, unspecified; F31.30 Bipolar disorder, current episode depressed, mild or moderate severity, unspecified; R56.9 Unspecified convulsions; F17.210 Nicotine dependence, cigarettes, uncomplicated; Z79.899 Other long term (current) drug therapy
CPT/HCPCS: 36415; 85027; 80048; 36561; 76937; 77001; 71010; 93005; 93010; C1788; C1752; Q9967; J2250; J3490 ×2; J0690; A9270; J3010; J1644

== ENCOUNTER → 2017-06-20 | Outpatient (CLI) | payer MEDICARE, MEDICAID ==
--- NOTE | 2017-06-20 11:32 | RADIOLOGY REPORT (SQ) ---
EXAM DESCRIPTION: CT CHEST WITH COMPLETED DATE/TIME: 06/20/2017 8:59 am REASON FOR STUDY: PANCREATIC CA C25.0 MALIGNANT NEOPLASM OF HEAD OF PANCREAS COMPARISON: None. TECHNIQUE: CT scan of the chest performed using helical scanning technique with dynamic intravenous contrast injection. Images reviewed with lung, soft tissue and bone windows. Reconstructed coronal and sagittal MPR images reviewed. All images stored on PACS. All CT scanners at this facility use dose modulation, iterative reconstruction, and/or weight based d osing when appropriate to reduce radiation dose to as low as reasonably achievable (ALARA). [facility]: Dose Right [facility]: CareDose [facility]: Dose Right [facility]: Teradose 4D [facility]: [employer] CONTRAST TYPE AND DOSE: contrast/concentration: Isovue 370.00 mg/ml; Total Contrast Delivered: 65.0 ml; Total Saline Delivered: 65.0 ml RENAL FUNCTION: GFR > 60. RADIATION DOSE: Up-to-date CT equipment and radiation dose reduction techniques were employed. CTDIv ol: 4.5 - 8.2 mGy. DLP: 824 mGy-cm. . LIMITATIONS: None. FINDINGS: LUNGS AND PLEURA: No opacities, nodules, masses. No pneumothorax. No effusions. HILAR AND MEDIASTINAL STRUCTURES: No identified masses or abnormal nodes. HEART AND VASCULAR STRUCTURES: No aneurysm or dissection. No central pulmonary emboli. No pericardi al effusion. HARDWARE: None in the chest. UPPER ABDOMEN: See separate report of the CT of the abdomen. THYROID AND OTHER SOFT TISSUES: No masses. No adenopathy. BONES: No significant finding. OTHER: Right-sided port with tip in the SVC. IMPRESSION: No evidence of metastatic disease. TECHNICAL DOCUMENTATION: JOB ID: [id number] Quality ID # [id number]: Final reports with documentation of one or more dose reduction techniques (e.g., Au tomated exposure control, adjustment of the mA and/or kV according to patient size, use of iterative reconstruction technique) 2010 [employer]- All Rights Reserved
--- NOTE | 2017-06-20 11:38 | RADIOLOGY REPORT (SQ) ---
EXAM DESCRIPTION: CT ABD/PELVIS WITH IV ONLY COMPLETED DATE/TIME: 06/20/2017 8:59 am REASON FOR STUDY: PANCREATIC CA C25.0 MALIGNANT NEOPLASM OF HEAD OF PANCREAS COMPARISON: 02/07/2017 TECHNIQUE: CT scan of the abdomen and pelvis performed using helical scanning technique with dynamic intravenous contrast injection. No oral contrast. Images reviewed with lung, soft tissue, and bone windows. Reconstructed coronal and sagittal MPR images reviewed. Delayed images for evaluation of the urinary system also acquired. All images stored on PACS. All CT scanners at this facility use dose modulation, iterative reconstruction, and/or weight based d osing when appropriate to reduce radiation dose to as low as reasonably achievable (ALARA). [facility]: Dose Right [facility]: CareDose [facility]: Dose Right [facility]: Teradose 4D [facility]: [employer] CONTRAST TYPE AND DOSE: See separate chest CT report of the same date. RENAL FUNCTION: GFR > 60. RADIATION DOSE: . LIMITATIONS: None. FINDINGS: LOWER CHEST: See separate report of the CT of the chest. LIVER: Normal size. No masses. Interval removal of biliary stent. Small amount of pneumobilia. No dilated ducts. SPLEEN: Normal size. No focal lesions. PANCREAS: Postsurgical changes in the head. GALLBLADDER: Surgically absent. ADRENAL GLANDS: Stable subcentimeter nodule left adrenal. RIGHT KIDNEY AND URETER: No solid masses. No significant calcifications. No hydronephrosis or hyd roureter. LEFT KIDNEY AND URETER: No solid masses. No significant calcifications. No hydronephrosis or hydr oureter. AORTA AND VESSELS: No aneurysm. RETROPERITONEUM: No retroperitoneal adenopathy, hemorrhage or masses. BOWEL AND PERITONEAL CAVITY: No masses or inflammatory changes. No free fluid or peritoneal masses. APPENDIX: Normal. PELVIS: No mass. No free fluid. Normal bladder. ABDOMINAL WALL: No masses. No hernias. BONES: No significant or acute findings. OTHER: No other significant finding. IMPRESSION: Stable appearance of the abdomen and pelvis. TECHNICAL DOCUMENTATION: JOB ID: [id number] Quality ID # [id number]: Final reports with documentation of one or more dose reduction techniques (e.g., Au tomated exposure control, adjustment of the mA and/or kV according to patient size, use of iterative reconstruction technique) 2010 [employer]- All Rights Reserved
== END ==
LOC: RAD 08:01
PROVIDERS: ATTEND Internal Medicine
DX: C25.0 Malignant neoplasm of head of pancreas (principal)
CPT/HCPCS: 71260; 74177

== ENCOUNTER → 2017-07-24 | Outpatient (CLI) | payer MEDICARE, MEDICAID ==
--- NOTE | 2017-07-24 17:40 | RADIOLOGY REPORT (SQ) ---
EXAM DESCRIPTION: MRI HEAD COMBO COMPLETED DATE/TIME: 07/24/2017 5:24 pm REASON FOR STUDY: PANCREATIC CANCER C25.0 MALIGNANT NEOPLASM OF HEAD OF PANCREAS COMPARISON: None. TECHNIQUE: Multiplanar imaging includes noncontrasted T1, T2, FLAIR, and Diffusion with ADC map seq uences. Contrast enhanced T1 images. Images stored on PACS. CONTRAST TYPE AND DOSE: 10 mL Multihance. RENAL FUNCTION: GFR > 60. LIMITATIONS: None. FINDINGS: ANATOMY: No anomalies. Normal vascular flow voids. Pituitary fossa normal. CSF SPACES: Normal size and contour. No hemorrhage. CEREBRUM: A few high-signal intensity lesions scattered throughout the white matter on FLAIR imaging with distribution suggesting chronic microvascular ischemic change. Sulci and gyri normal in size and contour. No evidence of hemorrhage, mass or extraaxial fluid collection. No enhancing lesions. POSTERIOR FOSSA: No signal alteration. No hemorrhage. No edema, masses or mass effect. Internal audit ory canals, cerebello-pontine angles, mastoids normal. DIFFUSION: Negative for acute or subacute infarction. ORBITS: No masses. Globes normal. PARANASAL SINUSES: No fluid levels. Mucosa normal. OTHER: No other significant finding. IMPRESSION: NO ENHANCING LESIONS. MINIMAL MICROVASCULAR ISCHEMIC CHANGE. EVIDENCE OF ACUTE STROKE: NO. TECHNICAL DOCUMENTATION: JOB ID: [id number] [employer] All Rights Reserved
== END ==
LOC: RAD 16:20
PROVIDERS: ATTEND Internal Medicine
DX: C25.0 Malignant neoplasm of head of pancreas (principal)
CPT/HCPCS: 82565; 70553; A9577

== ENCOUNTER → 2017-09-13 | Outpatient (CLI) | payer MEDICAID, MEDICARE ==
--- NOTE | 2017-09-13 10:04 | RADIOLOGY REPORT (SQ) ---
EXAM DESCRIPTION: CT CHEST WITH COMPLETED DATE/TIME: 09/13/2017 9:52 am REASON FOR STUDY: MAL GRIFFIN OF HEAD OF PANCREAS C25.0 MALIGNANT NEOPLASM OF HEAD OF PANCREAS COMPARISON: 06/20/2017 TECHNIQUE: CT scan of the chest performed using helical scanning technique with dynamic intravenous contrast injection. Images reviewed with lung, soft tissue and bone windows. Reconstructed coronal and sagittal MPR images reviewed. All images stored on PACS. All CT scanners at this facility use dose modulation, iterative reconstruction, and/or weight based d osing when appropriate to reduce radiation dose to as low as reasonably achievable (ALARA). [facility]: Dose Right [facility]: CareDose [facility]: Dose Right [facility]: Teradose 4D [facility]: [employer] CONTRAST TYPE AND DOSE: 62 mL Isovue 370 RENAL FUNCTION: None required. The patient is less than 50 years old. RADIATION DOSE: . LIMITATIONS: None. FINDINGS: LUNGS AND PLEURA: No opacities, nodules, masses. No pneumothorax. No effusions. HILAR AND MEDIASTINAL STRUCTURES: No identified masses or abnormal nodes. HEART AND VASCULAR STRUCTURES: No aneurysm or dissection. No central pulmonary emboli. No pericardi al effusion. HARDWARE: Port-A-Cath is again identified. UPPER ABDOMEN: No significant findings. Limited exam. THYROID AND OTHER SOFT TISSUES: No masses. No adenopathy. BONES: No significant finding. OTHER: No other significant finding. IMPRESSION: No evidence for intrathoracic metastatic disease. Other findings as noted above TECHNICAL DOCUMENTATION: JOB ID: [id number] Quality ID # [id number]: Final reports with documentation of one or more dose reduction techniques (e.g., Au tomated exposure control, adjustment of the mA and/or kV according to patient size, use of iterative reconstruction technique) 2010 [employer] All Rights Reserved
--- NOTE | 2017-09-13 10:11 | RADIOLOGY REPORT (SQ) ---
EXAM DESCRIPTION: CT ABD/PELVIS WITH IV ONLY COMPLETED DATE/TIME: 09/13/2017 9:52 am REASON FOR STUDY: MAL GRIFFIN OF HEAD OF PANCREAS C25.0 MALIGNANT NEOPLASM OF HEAD OF PANCREAS COMPARISON: 06/20/2017 TECHNIQUE: CT scan of the abdomen and pelvis performed using helical scanning technique with dynamic intravenous contrast injection. No oral contrast. Images reviewed with lung, soft tissue, and bone windows. Reconstructed coronal and sagittal MPR images reviewed. Delayed images for evaluation of the urinary system also acquired. All images stored on PACS. All CT scanners at this facility use dose modulation, iterative reconstruction, and/or weight based d osing when appropriate to reduce radiation dose to as low as reasonably achievable (ALARA). [facility]: Dose Right [facility]: CareDose [facility]: Dose Right [facility]: Teradose 4D [facility]: [employer] CONTRAST TYPE AND DOSE: contrast/concentration: Isovue 370.00 mg/ml; Total Contrast Delivered: 62.0 ml; Total Saline Delivered: 65.0 ml RENAL FUNCTION: None required. The patient is less than 50 years old. RADIATION DOSE: Up-to-date CT equipment and radiation dose reduction techniques were employed. CTDIv ol: 4.5 - 4.7 mGy. DLP: 633 mGy-cm.. LIMITATIONS: None. FINDINGS: LOWER CHEST: See results under chest CT scan LIVER: Normal size. No masses. Air is again identified within a couple of the intrahepatic biliary r adicals. There is diffuse fatty infiltration of the liver. SPLEEN: Normal size. No focal lesions. PANCREAS: Postsurgical changes in the pancreatic head appears stable. GALLBLADDER: Status post cholecystectomy ADRENAL GLANDS: Small left adrenal nodule appears stable. RIGHT KIDNEY AND URETER: No solid masses. No significant calcifications. No hydronephrosis or hyd roureter. LEFT KIDNEY AND URETER: No solid masses. No significant calcifications. No hydronephrosis or hydr oureter. AORTA AND VESSELS: No aneurysm. No dissection. Renal arteries, SMA, celiac without stenosis. RETROPERITONEUM: No retroperitoneal adenopathy, hemorrhage or masses. BOWEL AND PERITONEAL CAVITY: No masses or inflammatory changes. No free fluid or peritoneal masses. APPENDIX: Status post appendectomy PELVIS: No mass. No free fluid. Normal bladder. ABDOMINAL WALL: No masses. No hernias. BONES: No significant or acute findings. OTHER: No other significant finding. IMPRESSION: No significant interval change as compared to the previous study. Postsurgical changes in the pancreatic head appears stable. Diffuse fatty infiltration of the liver. Other findings as n oted above. TECHNICAL DOCUMENTATION: JOB ID: [id number] Quality ID # [id number]: Final reports with documentation of one or more dose reduction techniques (e.g., Au tomated exposure control, adjustment of the mA and/or kV according to patient size, use of iterative reconstruction technique) 2010 [employer]- All Rights Reserved
== END ==
LOC: RAD 08:54
PROVIDERS: ATTEND Physician Assistant
DX: C25.0 Malignant neoplasm of head of pancreas (principal)
CPT/HCPCS: 71260; 74177; 82565

== ENCOUNTER → 2017-11-21 | Outpatient (CLI) | payer MEDICAID, MEDICARE ==
--- NOTE | 2017-11-21 13:51 | RADIOLOGY REPORT (SQ) ---
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 TECHNIQUE: CT scan of the chest performed using helical scanning technique with dynamic intravenous contrast injection. Images reviewed with lung, soft tissue and bone windows. Reconstructed coronal and sagittal MPR images reviewed. All images stored on PACS. All CT scanners at this facility use dose modulation, iterative reconstruction, and/or weight based d osing when appropriate to reduce radiation dose to as low as reasonably achievable (ALARA). [facility]: Dose Right [facility]: CareDose [facility]: Dose Right [facility]: Teradose 4D [facility]: [employer] CONTRAST TYPE AND DOSE: contrast/concentration: Isovue 370.00 mg/ml; Total Contrast Delivered: 62.0 ml; Total Saline Delivered: 65.0 ml RENAL FUNCTION: Creatinine 0.8. RADIATION DOSE: CT Rad equipment meets quality standard of care and radiation dose reduction techniq ues were employed. CTDIvol: 5.0 - 5.9 mGy. DLP: 952 mGy-cm. . LIMITATIONS: None. FINDINGS: LUNGS AND PLEURA: No opacities, nodules, masses. No pneumothorax. No effusions. HILAR AND MEDIASTINAL STRUCTURES: No identified masses or abnormal nodes. HEART AND VASCULAR STRUCTURES: No aneurysm or dissection. No central pulmonary emboli. No pericardi al effusion. HARDWARE: Vascular access port. UPPER ABDOMEN: No significant findings. Limited exam. THYROID AND OTHER SOFT TISSUES: No masses. No adenopathy. BONES: No significant finding. OTHER: No other significant finding. IMPRESSION: NORMAL CT OF THE CHEST WITH IV CONTRAST. TECHNICAL DOCUMENTATION: JOB ID: [id number] Quality ID # [id number]: Final reports with documentation of one or more dose reduction techniques (e.g., Au tomated exposure control, adjustment of the mA and/or kV according to patient size, use of iterative reconstruction technique) 2010 [employer]- All Rights Reserved
--- NOTE | 2017-11-21 13:58 | RADIOLOGY REPORT (SQ) ---
EXAM DESCRIPTION: CT ABD/PELVIS WITH IV ONLY COMPLETED DATE/TIME: 11/21/2017 1:30 pm REASON FOR STUDY: C25.0 C25.0 MALIGNANT NEOPLASM OF HEAD OF PANCREAS COMPARISON: 09/13/2017 and 06/20/2017. TECHNIQUE: CT scan of the abdomen and pelvis performed using helical scanning technique with dynamic intravenous contrast injection. No oral contrast. Images reviewed with lung, soft tissue, and bone windows. Reconstructed coronal and sagittal MPR images reviewed. Delayed images for evaluation of the urinary system also acquired. All images stored on PACS. All CT scanners at this facility use dose modulation, iterative reconstruction, and/or weight based d osing when appropriate to reduce radiation dose to as low as reasonably achievable (ALARA). [facility]: Dose Right [facility]: CareDose [facility]: Dose Right [facility]: Teradose 4D [facility]: [employer] CONTRAST TYPE AND DOSE: 62 mL Isovue 370- low osmolar. RENAL FUNCTION: Creatinine 0.8. RADIATION DOSE: . LIMITATIONS: None. FINDINGS: LOWER CHEST: No significant findings. No nodules or infiltrates. LIVER: Normal size. No masses. General decreased attenuation. No dilated ducts. SPLEEN: Normal size. No focal lesions. PANCREAS: Stable surgical changes in the pancreatic head secondary to Whipple procedure. No masses. No significant calcifications. No adjacent inflammation or peripancreatic fluid collections. Pancreat ic duct not dilated. GALLBLADDER: Surgically absent. ADRENAL GLANDS: No significant masses or asymmetry. RIGHT KIDNEY AND URETER: No solid masses. No significant calcifications. No hydronephrosis or hyd roureter. LEFT KIDNEY AND URETER: No solid masses. No significant calcifications. No hydronephrosis or hydr oureter. AORTA AND VESSELS: No aneurysm. No dissection. Renal arteries, SMA, celiac without stenosis. RETROPERITONEUM: No retroperitoneal adenopathy, hemorrhage or masses. BOWEL AND PERITONEAL CAVITY: No masses or inflammatory changes. No free fluid or peritoneal masses. APPENDIX: Surgically absent. PELVIS: No mass. No free fluid. Normal bladder. ABDOMINAL WALL: No masses. No hernias. BONES: No significant or acute findings. OTHER: No other significant finding. IMPRESSION: 1. STABLE SURGICAL CHANGES SECONDARY TO RESECTION OF THE PANCREATIC HEAD AND WHIPPLE PROCEDURE. NO E VIDENCE OF RESIDUAL OR RECURRENT DISEASE OR METASTASIS. 2. DIFFUSE FATTY INFILTRATION OF THE LIVER. NO OTHER SIGNIFICANT OR ACUTE FINDING IN THE ABDOMEN OR PELVIS ON CT SCAN WITH IV CONTRAST. TECHNICAL DOCUMENTATION: JOB ID: [id number] Quality ID # [id number]: Final reports with documentation of one or more dose reduction techniques (e.g., Au tomated exposure control, adjustment of the mA and/or kV according to patient size, use of iterative reconstruction technique) 2010 [employer]- All Rights Reserved
== END ==
LOC: RAD 13:53
PROVIDERS: ATTEND Internal Medicine
DX: C25.0 Malignant neoplasm of head of pancreas (principal)
CPT/HCPCS: 71260; 74177; 82565

== ENCOUNTER → 2018-01-22 | Outpatient (CLI) | payer MEDICARE, MEDICAID ==
--- NOTE | 2018-01-22 15:34 | RADIOLOGY REPORT (SQ) ---
EXAM DESCRIPTION: CT ABD/PELVIS WITH IV ORAL COMPLETED DATE/TIME: 01/22/2018 11:14 am REASON FOR STUDY: C25.7 MALIGNANT NEOPLASM OF OTHER PARTS OF PANCREAS C25.7 MALIGNANT NEOPLASM OF O THER PARTS OF PANCREAS COMPARISON: CT abdomen pelvis 12/29/2016, 06/20/2017, 09/13/2017, 11/21/2017 PET-CT 02/17/2017 TECHNIQUE: CT scan of the abdomen and pelvis performed using helical scanning technique with dynamic intravenous contrast injection. Patient drank oral contrast. Images reviewed with lung, soft tissue , and bone windows. Reconstructed coronal and sagittal MPR images reviewed. Delayed images for evalua tion of the urinary system also acquired. All images stored on PACS. All CT scanners at this facility use dose modulation, iterative reconstruction, and/or weight based d osing when appropriate to reduce radiation dose to as low as reasonably achievable (ALARA). [facility]: Dose Right [facility]: CareDose [facility]: Dose Right [facility]: Teradose 4D [facility]: [employer] CONTRAST TYPE AND DOSE: contrast/concentration: Isovue 370.00 mg/ml; Total Contrast Delivered: 64.0 ml; Total Saline Delivered: 65.0 ml RENAL FUNCTION: Creatinine 0.7 RADIATION DOSE: CT Rad equipment meets quality standard of care and radiation dose reduction techniq ues were employed. CTDIvol: 3.8 - 4.4 mGy. DLP: 389 mGy-cm.. LIMITATIONS: None. FINDINGS: LOWER CHEST: No significant findings. No nodules or infiltrates. LIVER: Fatty infiltration with focal sparing in the left lobe, similar compared to previous exams. SPLEEN: Normal size. No focal lesions. PANCREAS: Post Whipple procedure. Pancreatic tail unremarkable. GALLBLADDER: Surgically absent ADRENAL GLANDS: No significant masses or asymmetry. RIGHT KIDNEY AND URETER: No solid masses. No significant calcifications. No hydronephrosis or hyd roureter. LEFT KIDNEY AND URETER: No solid masses. No significant calcifications. No hydronephrosis or hydr oureter. AORTA AND VESSELS: No aneurysm. No dissection. Renal arteries, SMA, celiac without stenosis. RETROPERITONEUM: No retroperitoneal adenopathy, hemorrhage or masses. BOWEL AND PERITONEAL CAVITY: Patient drank oral contrast. No CT evidence of bowel obstruction. Mode rate stool in the sigmoid colon. Whipple procedure with Billroth 2 gastric to small bowel anastomosi s. APPENDIX: Surgically absent PELVIS: No mass. No free fluid. Normal bladder. Normal size female pelvic organs. Clips post tubal ligation ABDOMINAL WALL: No masses. No hernias. BONES: No significant or acute findings. OTHER: No other significant finding. IMPRESSION: Post Whipple procedure and resection of pancreatic head and gallbladder. Post appendect abe. No abnormal masses or enhancement in the abdomen worrisome for recurrent pancreatic tumor TECHNICAL DOCUMENTATION: JOB ID: [id number] Quality ID # [id number]: Final reports with documentation of one or more dose reduction techniques (e.g., Au tomated exposure control, adjustment of the mA and/or kV according to patient size, use of iterative reconstruction technique) 2010 [employer]- All Rights Reserved Reading location - IP/workstation name: [email or web address]
== END ==
LOC: RAD 14:12
PROVIDERS: ATTEND Surgery
DX: C25.7 Malignant neoplasm of other parts of pancreas (principal)
CPT/HCPCS: 74177; 82565

== ENCOUNTER 2018-04-14 10:39 | Inpatient (IN) | payer MEDICARE, MEDICAID ==
[2018-04-14] MEDS ORDERED: ONDANSETRON 4 MG TAB.RAPDIS PO ONE ×2 (10:56→12:15)
[2018-04-14] MEDS ORDERED: FENTANYL CITRATE INJ/PF 100 MCG/2 ML AMPUL IV ONE (10:59)
[2018-04-14] MEDS ORDERED: ONDANSETRON HCL INJ/PF 4 MG/2 ML SDV IV ONE (10:59)
--- NOTE | 2018-04-14 11:00 | ER Document Report ---
ED Medical Screen (RME) - General Chief Complaint: Flank Pain Stated Complaint: ABDOMINAL PAIN Notes: RAPID MEDICAL EVALUATION DISCLOSURE I have seen this patient as part of a Rapid Medical Evaluation and, if applicable, placed any initially appropriate orders. The patient will be seen and fully evaluated, including a full history and physical exam, by a provider ( in Main ED or Fast Track) when a room becomes available. 57-year-old female PMH pancreatic cancer (in remission) here with complaints of right flank pain ongoing for the past 2 days with nausea and vomiting but no diarrhea. She does not know of anything that makes the pain worse. She has not noticed any dysuria frequency hesitancy. She does take a milligram hydromorphone for her cancer pain (normally located in the epigastrium) but this is helped minimally. She does not normally have right flank pain with her baseline cancer pains. EXAM No abdominal TTP TRAVEL OUTSIDE OF THE [place] IN LAST 30 DAYS: No - Related Data Allergies/Adverse Reactions: acetaminophen [From Vicodin] Allergy (Severe, Verified 04/14/18 10:57) Shortness of Breath hydrocodone [Hydrocodone] Allergy (Severe, Verified 04/14/18 10:57) Shortness of Breath oxycodone [From Percocet] Allergy (Severe, Verified 04/14/18 10:57) Shortness of Breath propoxyphene [From Darvocet-N] Allergy (Severe, Verified 04/14/18 10:57) Shortness of Breath tramadol [Tramadol] Allergy (Severe, Verified 04/14/18 10:57) Shortness of Breath Past Medical History - Social History Chew tobacco use (# tins/day): No Frequency of alcohol use: None Drug Abuse: None - Past Medical History Cardiac Medical History: Reports: Hx Hypercholesterolemia Denies: Hx Coronary Artery Disease, Hx Heart Attack, Hx Hypertension Pulmonary Medical History: Denies: Hx Asthma, Hx Bronchitis, Hx COPD, Hx Pneumonia Neurological Medical History: Reports: Hx Seizures. Denies: Hx Cerebrovascular Accident Renal/ Medical History: Denies: Hx Peritoneal Dialysis Musculoskeltal Medical History: Denies Hx Arthritis Psychiatric Medical History: Reports: Hx Bipolar Disorder Denies: Hx Depression Past Surgical History: Reports: Hx Appendectomy, Hx Cholecystectomy, Hx Gynecologic Surgery - tubal ligation, Other - Common bile duct stent December 2016 - Immunizations Hx Diphtheria, Pertussis, Tetanus Vaccination: Yes Physical Exam - Vital signs Vitals: Temp Pulse Resp BP Pulse Ox 98.9 F 77 18 114/70 99 04/14/18 10:47 04/14/18 10:47 04/14/18 10:47 04/14/18 10:47 04/14/18 10:47 Course - Vital Signs Vital signs: Temp Pulse Resp BP Pulse Ox 98.9 F 77 18 114/70 99 04/14/18 10:47 04/14/18 10:47 04/14/18 10:47 04/14/18 10:47 04/14/18 10:47
[2018-04-14 12:27] LABS: ABSOLUTE LYMPHOCYTES (AUTO) 0.9 10^3/uL (0.5-4.7); ABSOLUTE MONOCYTES (AUTO) 0.2 10^3/uL (0.1-1.4); ABSOLUTE NEUT (AUTO) 8.3 10^3/uL (1.7-8.2); BASOPHILS % (AUTO) 0.2 % (0-2); HEMATOCRIT 42.6 % (36.0-47.0); HEMOGLOBIN 14.6 g/dL (12.0-15.5); LYMPHOCYTES % (AUTO) 9.5 % (13-45); MEAN CORPUSCULAR HEMOGLOBIN 31.1 pg (27.0-33.4); MEAN CORPUSCULAR HGB CONC 34.3 g/dL (32.0-36.0); MEAN CORPUSCULAR VOLUME 91 fl (80-97); MONOCYTES % (AUTO) 1.7 % (3-13); PLATELET COUNT 325 10^3/uL (150-450); RED BLOOD COUNT 4.71 10^6/uL (3.72-5.28); RED CELL DISTRIBUTION WIDTH 13.1 % (11.5-14.0); SEGMENTED NEUTROPHILS % (AUTO) 88.6 % (42-78); TOTAL CELLS COUNTED % (AUTO) 100 %; WHITE BLOOD COUNT 9.3 10^3/uL (4.0-10.5)
[2018-04-14 12:36] LABS: APPEARANCE,URINE SLIGHTLY-CLOUDY; BILIRUBIN,URINE NEGATIVE (NEGATIVE); COLOR,URINE YELLOW; GLUCOSE, URINE NEGATIVE (NEGATIVE); KETONES,URINE 80 mg/dL (NEGATIVE); LEUKOCYTE ESTERASE,URINE NEGATIVE (NEGATIVE); NITRITE,URINE NEGATIVE (NEGATIVE); PROTEIN,URINE 100 mg/dL (NEGATIVE); URINE SPECIFIC GRAVITY 1.023
[2018-04-14 12:44] LABS: ALANINE AMINOTRANSFERASE 25 U/L (9-52); ALBUMIN 4.4 g/dL (3.5-5.0); ALKALINE PHOSPHATASE 153 U/L (38-126); ANION GAP 15 (5-19); ASPARTATE AMINO TRANSFERASE 27 U/L (14-36); BILIRUBIN,DIRECT 0.4 mg/dL (0.0-0.4); BILIRUBIN,TOTAL 0.8 mg/dL (0.2-1.3); BLOOD UREA NITROGEN 14 mg/dL (7-20); CALCIUM 10.2 mg/dL (8.4-10.2); CARBON DIOXIDE 26 mmol/L (22-30); CHLORIDE 103 mmol/L (98-107); GLUCOSE 133 mg/dL (75-110); LIPASE 13.3 U/L (23-300); POTASSIUM 4.7 mmol/L (3.6-5.0); SODIUM 143.6 mmol/L (137-145); TOTAL PROTEIN 7.5 g/dL (6.3-8.2)
[2018-04-14] MEDS ORDERED: NORMAL SALINE 1000 ML 1,000 ML IV ONE (15:00)
--- NOTE | 2018-04-14 15:00 | ER Document Report ---
ED GI/ - General TRAVEL OUTSIDE OF THE [place] IN LAST 30 DAYS: No <SALOME SALGADO - Last Filed: 04/14/18 19:05> <JUDI BAIG - Last Filed: 04/15/18 00:16> - General Chief Complaint: Flank Pain Stated Complaint: ABDOMINAL PAIN Time Seen by Provider: 04/14/18 12:18 Notes: Patient is a 57 year old female that presents to the emergency department today with complaints of right sided abdomen and right sided flank pain. Patient has a history of stage III pancreatic cancer which she "has gotten over". Patient states her pain was sudden and she feels like she got "shot in the back". Patient denies any dysuria or history of kidney stones. (SALOME SALGADO) - Related Data Allergies/Adverse Reactions: acetaminophen [From Vicodin] Allergy (Severe, Verified 04/14/18 10:57) Shortness of Breath hydrocodone [Hydrocodone] Allergy (Severe, Verified 04/14/18 10:57) Shortness of Breath oxycodone [From Percocet] Allergy (Severe, Verified 04/14/18 10:57) Shortness of Breath propoxyphene [From Darvocet-N] Allergy (Severe, Verified 04/14/18 10:57) Shortness of Breath tramadol [Tramadol] Allergy (Severe, Verified 04/14/18 10:57) Shortness of Breath Past Medical History - General Information source: Patient - Social History Smoking Status: Unknown if Ever Smoked Cigarette use (# per day): No Chew tobacco use (# tins/day): No Frequency of alcohol use: None Drug Abuse: None Lives with: Family Family History: Reviewed & Not Pertinent, Other - Father of gastric carcinoma Patient has suicidal ideation: No Patient has homicidal ideation: No - Past Medical History Cardiac Medical History: Reports: Hx Hypercholesterolemia Neurological Medical History: Reports: Hx Seizures Psychiatric Medical History: Reports: Hx Bipolar Disorder Past Surgical History: Reports: Hx Appendectomy, Hx Cholecystectomy, Hx Gynecologic Surgery - tubal ligation, Other - Common bile duct stent December 2016 - Immunizations Hx Diphtheria, Pertussis, Tetanus Vaccination: Yes <SALOME SALGADO - Last Filed: 04/14/18 19:05> Review of Systems - Review of Systems Constitutional: No symptoms reported EENT: No symptoms reported Cardiovascular: No symptoms reported Respiratory: No symptoms reported Gastrointestinal: See HPI, Abdominal pain - right sided Genitourinary: See HPI, Flank pain - right. denies: Burning, Dysuria Female Genitourinary: No symptoms reported Musculoskeletal: No symptoms reported Skin: No symptoms reported Hematologic/Lymphatic: No symptoms reported Neurological/Psychological: No symptoms reported -: Yes All other systems reviewed and negative <SALOME SALGADO - Last Filed: 04/14/18 19:05> Physical Exam - Vital signs Interpretation: Normal - General General appearance: Appears well, Alert - HEENT Head: Normocephalic, Atraumatic Eyes: Normal Pupils: PERRL - Respiratory Respiratory status: No respiratory distress Chest status: Nontender Breath sounds: Normal Chest palpation: Normal - Cardiovascular Rhythm: Regular Heart sounds: Normal auscultation Murmur: No - Abdominal Inspection: Normal Distension: No distension Bowel sounds: Normal Tenderness: Tender - perumbilical Organomegaly: No organomegaly - Back Back: Normal, CVA tenderness - R - Extremities General upper extremity: Normal inspection, Nontender, Normal color, Normal ROM , Normal temperature General lower extremity: Normal inspection, Nontender, Normal color, Normal ROM , Normal temperature, Normal weight bearing. No: Romulo's sign - Neurological Neuro grossly intact: Yes Cognition: Normal Orientation: AAOx4 [place] Coma Scale Eye Opening: Spontaneous Fadia Coma Scale Verbal: Oriented Fadia Coma Scale Motor: Obeys Commands Fadia Coma Scale Total: 15 Speech: Normal Motor strength normal: LUE, RUE, LLE, RLE Sensory: Normal - Psychological Associated symptoms: Normal affect, Normal mood - Skin Skin Temperature: Warm Skin Moisture: Dry Skin Color: Normal <JUDI BAIG - Last Filed: 04/15/18 00:16> - Vital signs Vitals: Temp Pulse Resp BP Pulse Ox 98.9 F 77 18 114/70 99 04/14/18 10:47 04/14/18 10:47 04/14/18 10:47 04/14/18 10:47 04/14/18 10:47 Course - Laboratory Result Diagrams: 04/14/18 12:05 04/14/18 12:05 <SALOME SALGADO - Last Filed: 04/14/18 19:05> - Laboratory Result Diagrams: 04/14/18 12:05 04/14/18 12:05 <JUDI BAIG - Last Filed: 04/15/18 00:16> - Re-evaluation Re-evalutation: 04/14 Patient is a 57-year-old female who comes in with right-sided flank pain and abdominal pain. Patient has a history of pancreatic cancer. Blood work within normal limits. Patient has [address] was performed to look for ureteral stone. Unfortunately, patient has loss of no stones and there is concern for recurrent oncologic disease. Patient was discussed with Dr. Youssef. Findings on CT were discussed with her and her the patient will be admitted for pain control, dehydration, fluid resuscitation, and management of nausea vomiting. Patient is agreeable to this plan. Stable at the time of admission. (JUDI BAIG) - Vital Signs Vital signs: Temp Pulse Resp BP Pulse Ox 98.9 F 75 18 128/58 H 98 04/14/18 22:03 04/14/18 22:03 04/14/18 22:03 04/14/18 22:03 04/14/18 22:03 - Laboratory Laboratory results interpreted by me: 04/14/18 04/14/18 04/14/18 12:05 12:05 12:05 Seg Neutrophils % 88.6 H Lymphocytes % 9.5 L Monocytes % 1.7 L Absolute Neutrophils 8.3 H Glucose 133 H Alkaline Phosphatase 153 H Lipase 13.3 L Urine Protein 100 H Urine Ketones 80 H Urine Blood SMALL H Urine Urobilinogen 2.0 H Discharge <SALOME SALGADO - Last Filed: 04/14/18 19:05> - Discharge Admitting Provider: Hospitalist - [facility] Unit Admitted: Medical Floor <JUDI BAIG - Last Filed: 04/15/18 00:16> - Discharge Clinical Impression: Cancer-related pain Intractable vomiting Qualifiers: Vomiting type: unspecified Nausea presence: with nausea Qualified Code(s): R11.2 - Nausea with vomiting, unspecified Condition: Stable Disposition: ADMITTED INPATIENT Scribe Attestation: 04/15/18 00:16 I personally performed the services described in the documentation, reviewed and edited the documentation which was dictated to the scribe in my presence, and it accurately records my words and actions. (JUDI BAIG) Scribe Documentation - Scribe Written by Scribe:: Sonal Gibson, 04/14/20181947 acting as scribe for :: Alysha <SALOME SALGADO - Last Filed: 04/14/18 19:05>
--- NOTE | 2018-04-14 15:45 | RADIOLOGY REPORT (SQ) ---
EXAM DESCRIPTION: CT LTD RENAL STONE PROTOCOL ON COMPLETED DATE/TIME: 04/14/2018 2:45 pm REASON FOR STUDY: R flank pain n/v COMPARISON: October 2017 TECHNIQUE: CT scan of the abdomen and pelvis performed without intravenous or oral contrast. Images reviewed with lung, soft tissue, and bone windows. Reconstructed coronal and sagittal MPR images revi ewed. All images stored on PACS. All CT scanners at this facility use dose modulation, iterative reconstruction, and/or weight based d osing when appropriate to reduce radiation dose to as low as reasonably achievable (ALARA). [facility]: Dose Right [facility]: CareDose [facility]: Dose Right [facility]: Teradose 4D [facility]: [employer] RADIATION DOSE: CT Rad equipment meets quality standard of care and radiation dose reduction techniq ues were employed. CTDIvol: 5.1 mGy. DLP: 259 mGy-cm.mGy. LIMITATIONS: Study is limited somewhat due to the lack of IV contrast. FINDINGS: LOWER CHEST: No significant findings. No nodules or infiltrates. NON-CONTRASTED LIVER, SPLEEN, ADRENALS: Evaluation limited by lack of IV contrast. No identified sign ificant masses. There is fatty infiltration of the liver. PANCREAS: The previously described postsurgical changes at the level of the pancreatic head are again identified. No obvious mass is identified although the study is limited due to the lack of IV contr ast GALLBLADDER: Status post cholecystectomy RIGHT KIDNEY AND URETER: No suspicious masses. Assessment limited by lack of IV contrast. No signif icant calcifications. No hydronephrosis or hydroureter. LEFT KIDNEY AND URETER: No suspicious masses. Assessment limited by lack of IV contrast. No signifi cant calcifications. No hydronephrosis or hydroureter. AORTA AND RETROPERITONEUM: No aneurysm. No retroperitoneal masses or adenopathy. BOWEL AND PERITONEAL CAVITY: There are edematous or inflammatory changes in the central mesenteric fa t with multiple adjacent enlarged or prominent mesenteric lymph nodes. The possibility of metastatic disease should be considered. Again the current study is limited due to the lack of IV contrast. APPENDIX: Status post appendectomy. PELVIS, BLADDER, AND ABDOMINAL WALL:No abnormal masses. No free fluid. Bladder normal. BONES: No significant findings. OTHER: No other significant finding. IMPRESSION: Limited study as noted above due to the lack of IV contrast. Postsurgical changes at th e level of the pancreatic head without a definite mass being identified. There are edematous or infl ammatory changes in the central mesenteric fat with multiple adjacent and larger prominent mesenteric lymph nodes. The possibility of metastatic disease should be considered. A followup study with IV contrast may be of value for further evaluation. Other findings as noted above. COMMENT: Quality ID # [id number]: Final reports with documentation of one or more dose reduction techniques (e.g., Automated exposure control, adjustment of the mA and/or kV according to patient size, use of iterative reconstruction technique) TECHNICAL DOCUMENTATION: JOB ID: [id number] [employer]- All Rights Reserved Reading location - IP/workstation name: [email or web address]
[2018-04-14] MEDS ORDERED: IPRATROPIUM/ALBUTEROL 0.5-2.5 MG/3 ML AMPUL NEB PRN (17:22)
[2018-04-14] MEDS ORDERED: MAGNESIUM HYDROXIDE SUSP 30 ML UDCUP PO PRN (17:22)
[2018-04-14] MEDS ORDERED: LIPASE PO SCH (18:00)
[2018-04-14] MEDS ORDERED: PROTEASE PO SCH (18:00)
[2018-04-14] MEDS ORDERED: AMYLASE PO SCH (18:00)
[2018-04-14] MEDS: RINGERS SOLUTION,LACTATED 1,000 ML IV PRN (18:54)
[2018-04-14] MEDS: HYDROMORPHONE HCL 2 MG TABLET PO PRN (18:59)
--- NOTE | 2018-04-14 19:29 | PDOC H&P ---
History of Present Illness Admission Date/PCP: 04/14/18 17:12 Patient complains of: Nausea, vomiting and abdominal Pian History of Present Illness: This patient presents emergency room with complaints of abdominal pain right- sided as well as right flank pain. She gives a prior history of pancreatic cancer which she thought was in remission. Plan of the workup done in the emergency room was a lipid CT scan which unfortunately revealed edematous changes in the central mesenteric fat with multiple adjacent enlarged prominent mesenteric lymph nodes with a possibility of metastatic disease being considered. Dr. Arzola has been consulted by the emergency room physician. Patient states she feels better after receiving some IV fluids and analgesic. Past Medical History Cardiac Medical History: Reports: Hyperlipidema Denies: Coronary Artery Disease, Myocardial Infarction, Hypertension Pulmonary Medical History: Denies: Asthma, Bronchitis, Chronic Obstructive Pulmonary Disease (COPD), Pneumonia Neurological Medical History: Reports: Seizures Musculoskeltal Medical History: Denies: Arthritis Psychiatric Medical History: Reports: Bipolar Disorder Denies: Depression Hematology: Denies: Anemia Past Surgical History Past Surgical History: Reports: Appendectomy, Cholecystectomy, Other - Common bile duct stent December 2016 Social History Information Source: Patient Lives with: Family Smoking Status: Unknown if Ever Smoked Frequency of Alcohol Use: None Hx Recreational Drug Use: No Drugs: None Hx Prescription Drug Abuse: No - Advance Directive Resuscitation Status: Do Not Resuscitate Family History Family History: Reviewed & Not Pertinent, Other - Father of gastric carcinoma Parental Family History Reviewed: Yes Children Family History Reviewed: Unknown Sibling(s) Family History Reviewed.: Unknown Medication/Allergy Home Medications: Promethazine HCl [Phenergan 25 mg Tablet] 1 tab PO Q6H PRN #30 tablet 02/07/17 Hydromorphone HCl [Dilaudid 2 mg Tablet] 2 mg PO Q4HP PRN 04/01/17 Lipase/Protease/Amylase [Danielle Dr 6,000 Units Capsule] 1 cap PO TID 04/14/18 Omeprazole [Omeprazole] 20 mg PO DAILY 04/14/18 Allergies/Adverse Reactions: acetaminophen [From Vicodin] Allergy (Severe, Verified 04/14/18 10:57) Shortness of Breath hydrocodone [Hydrocodone] Allergy (Severe, Verified 04/14/18 10:57) Shortness of Breath oxycodone [From Percocet] Allergy (Severe, Verified 04/14/18 10:57) Shortness of Breath propoxyphene [From Darvocet-N] Allergy (Severe, Verified 04/14/18 10:57) Shortness of Breath tramadol [Tramadol] Allergy (Severe, Verified 04/14/18 10:57) Shortness of Breath Review of Systems All systems: reviewed and no additional remarkable complaints except as stated Constitutional: ABSENT: chills, fever(s), headache(s), weight gain, weight loss Eyes: ABSENT: visual disturbances Ears: ABSENT: hearing changes Cardiovascular: ABSENT: chest pain, dyspnea on exertion, edema, orthropnea, palpitations Respiratory: ABSENT: cough, hemoptysis Gastrointestinal: ABSENT: abdominal pain, constipation, diarrhea, hematemesis, hematochezia, nausea, vomiting Genitourinary: ABSENT: dysuria, hematuria Musculoskeletal: ABSENT: joint swelling Integumentary: ABSENT: rash, wounds Neurological: ABSENT: abnormal gait, abnormal speech, confusion, dizziness, focal weakness, syncope Psychiatric: ABSENT: anxiety, depression, homidical ideation, suicidal ideation Endocrine: ABSENT: cold intolerance, heat intolerance, polydipsia, polyuria Hematologic/Lymphatic: ABSENT: easy bleeding, easy bruising Physical Exam Vital Signs: Temp Pulse Resp BP Pulse Ox 98.9 F 77 18 114/70 99 04/14/18 10:47 04/14/18 10:47 04/14/18 10:47 04/14/18 10:47 04/14/18 10:47 General appearance: PRESENT: no acute distress, cooperative Head exam: PRESENT: atraumatic Eye exam: PRESENT: conjunctiva pink, EOMI, PERRLA. ABSENT: scleral icterus Mouth exam: PRESENT: dry mucosa Neck exam: ABSENT: carotid bruit, JVD, lymphadenopathy, thyromegaly Respiratory exam: PRESENT: clear to auscultation tanja. ABSENT: rales, rhonchi, wheezes Cardiovascular exam: PRESENT: RRR. ABSENT: diastolic murmur, rubs, systolic murmur Pulses: PRESENT: normal dorsalis pedis pul GI/Abdominal exam: PRESENT: normal bowel sounds, soft. ABSENT: distended, guarding, mass, organolmegaly, rebound, tenderness Rectal exam: PRESENT: deferred Extremities exam: ABSENT: calf tenderness, clubbing, pedal edema Musculoskeletal exam: PRESENT: ambulatory Neurological exam: PRESENT: alert, oriented to person, oriented to place, oriented to time, oriented to situation Psychiatric exam: PRESENT: appropriate affect Skin exam: PRESENT: dry, intact, warm. ABSENT: cyanosis, rash Results Laboratory Results: Laboratory 04/14/18 04/14/18 04/14/18 12:05 12:05 12:05 WBC 9.3 RBC 4.71 Hgb 14.6 Hct 42.6 MCV 91 MCH 31.1 MCHC 34.3 RDW 13.1 Plt Count 325 Seg Neutrophils % 88.6 H Lymphocytes % 9.5 L Monocytes % 1.7 L Eosinophils % 0.0 Basophils % 0.2 Absolute Neutrophils 8.3 H Absolute Lymphocytes 0.9 Absolute Monocytes 0.2 Absolute Eosinophils 0.0 Absolute Basophils 0.0 Sodium 143.6 Potassium 4.7 Chloride 103 Carbon Dioxide 26 Anion Gap 15 BUN 14 Creatinine 0.71 Est GFR ( Amer) > 60 Est GFR (Non-Af Amer) > 60 Glucose 133 H Calcium 10.2 Total Bilirubin 0.8 Direct Bilirubin 0.4 Neonat Total Bilirubin Not Reportable Neonat Direct Bilirubin Not Reportable Neonat Indirect Bili Not Reportable AST 27 ALT 25 Alkaline Phosphatase 153 H Total Protein 7.5 Albumin 4.4 Lipase 13.3 L Urine Color YELLOW Urine Appearance SLIGHTLY-CLOUDY Urine pH 9.0 Ur Specific [place] 1.023 Urine Protein 100 H Urine Glucose (UA) NEGATIVE Urine Ketones 80 H Urine Blood SMALL H Urine Nitrite NEGATIVE Urine Bilirubin NEGATIVE Urine Urobilinogen 2.0 H Ur Leukocyte Esterase NEGATIVE Urine WBC (Auto) 3 Urine RBC (Auto) 105 Urine Bacteria (Auto) TRACE Squamous Epi Cells Auto 3 Urine Mucus (Auto) FEW Urine Ascorbic Acid NEGATIVE Impressions: Limited or Localized CT 04/14/18 12:20 IMPRESSION: Limited study as noted above due to the lack of IV contrast. Postsurgical changes at the level of the pancreatic head without a definite mass being identified. There are edematous or inflammatory changes in the central mesenteric fat with multiple adjacent and larger prominent mesenteric lymph nodes. The possibility of metastatic disease should be considered. A followup study with IV contrast may be of value for further evaluation. Other findings as noted above. Assessment & Plan - Diagnosis (1) Intractable vomiting Qualifiers: Vomiting type: unspecified Nausea presence: with nausea Qualified Code(s) : R11.2 - Nausea with vomiting, unspecified Is this a current diagnosis for this admission?: Yes Plan: Symptomatic with IV fluids and antiemetics (2) Pancreatic cancer metastasized to intra-abdominal lymph node Is this a current diagnosis for this admission?: Yes Plan: S/p resection of pancreatic head and gallbladder. CT scan done in December of this year showed no worrisome masses or recurrence of pancreatic tumor however CT scan done today is showing otherwise. She will be reevaluated by the oncologist in a.m. and in the interim patient will be treated for her symptoms with IV fluids and pain management. - Time Time Spent: 30 to 50 Minutes Medications reviewed and adjusted accordingly: Yes Anticipated discharge: Home Within: within 48 hours - Inpatient Certification Based on my medical assessment, after consideration of the patient's comorbidities, presenting symptoms, or acuity I expect that the services needed warrant INPATIENT care.: Yes Medical Necessity: Need Close Monitoring Due to Risk of Patient Decompensation, Need For IV Fluids
[2018-04-14] MEDS: FAMOTIDINE INJ/PF 20 MG/2 ML SDV IV SCH (23:36)
[2018-04-15] MEDS: HYDROMORPHONE HCL INJ/PF 2 MG/ML AMPULE IV PRN ×5 (01:07→20:24)
[2018-04-15] MEDS: RINGERS SOLUTION,LACTATED 1,000 ML IV PRN (03:00)
[2018-04-15] MEDS: ONDANSETRON HCL INJ/PF 4 MG/2 ML SDV IV PRN ×2 (04:23→19:09)
[2018-04-15 04:52] LABS: ABSOLUTE LYMPHOCYTES (AUTO) 2.2 10^3/uL (0.5-4.7); ABSOLUTE MONOCYTES (AUTO) 0.7 10^3/uL (0.1-1.4); ABSOLUTE NEUT (AUTO) 8.5 10^3/uL (1.7-8.2); BASOPHILS % (AUTO) 0.4 % (0-2); EOSINOPHILS % (AUTO) 0.1 % (0-6); HEMATOCRIT 34.5 % (36.0-47.0); LYMPHOCYTES % (AUTO) 19.3 % (13-45); MEAN CORPUSCULAR HGB CONC 34.6 g/dL (32.0-36.0); MEAN CORPUSCULAR VOLUME 90 fl (80-97); MONOCYTES % (AUTO) 5.9 % (3-13); PLATELET COUNT 258 10^3/uL (150-450); RED BLOOD COUNT 3.86 10^6/uL (3.72-5.28); RED CELL DISTRIBUTION WIDTH 13.2 % (11.5-14.0); SEGMENTED NEUTROPHILS % (AUTO) 74.3 % (42-78); TOTAL CELLS COUNTED % (AUTO) 100 %; WHITE BLOOD COUNT 11.4 10^3/uL (4.0-10.5)
[2018-04-15 04:53] LABS: HEMOGLOBIN 11.9 g/dL (12.0-15.5)
[2018-04-15 05:11] LABS: ANION GAP 12 (5-19); BLOOD UREA NITROGEN 19 mg/dL (7-20); CALCIUM 9.3 mg/dL (8.4-10.2); CARBON DIOXIDE 22 mmol/L (22-30); CHLORIDE 106 mmol/L (98-107); GLUCOSE 111 mg/dL (75-110); PHOSPHORUS 3.8 mg/dL (2.5-4.5); POTASSIUM 3.9 mmol/L (3.6-5.0); SODIUM 139.7 mmol/L (137-145)
[2018-04-15] MEDS: HYDROMORPHONE HCL 2 MG TABLET PO PRN (08:03)
--- NOTE | 2018-04-15 09:08 | PDOC CONSULTATION ---
Consultation Consult Date: 04/15/18 Attending physician:: NIK HERNANDEZ Consult reason:: Right flank and abdominal pain, known previous stage III pancreatic cancer History of Present Illness Admission Date/PCP: 04/14/18 17:12 Patient complains of: Back and abdominal pain, intractable History of Present Illness: RENEE BURRIS is a 57 year old female with known history of stage III pancreatic cancer, status post surgery as well as IV chemotherapy, last chemotherapy was about 8-9 months ago, and she has been on serial imaging with no evidence of disease. She has needed chronic Dilaudid pain medication, and she takes about 3-4 per day long-standing. In the preceding 72 hours prior to admission, she began having severe right flank pain, which is now gone to involve most of her abdomen. Initially was felt to be kidney related by the patient, so she came to the ED, because of her symptomatology they felt like this might be a stone, she was given a stone protocol CT without contrast but there was new mesenteric lymph nodes noted. I evaluated the CT myself, unsure if the lymph nodes themselves should be causing this pain, therefore I recommended restaging CT of the chest abdomen pelvis with oral and IV contrast. Also, she is on a fentanyl patch added that back for her, and I converted her totally to IV Dilaudid for the next 24 hours. Past Medical History Cardiac Medical History: Reports: Hyperlipidema Denies: Coronary Artery Disease, Myocardial Infarction, Hypertension Pulmonary Medical History: Denies: Asthma, Bronchitis, Chronic Obstructive Pulmonary Disease (COPD), Pneumonia Neurological Medical History: Reports: Seizures Malignancy Medical History: Reports: Other - Pancreatic cancer Musculoskeltal Medical History: Denies: Arthritis Psychiatric Medical History: Reports: Bipolar Disorder Denies: Depression Hematology: Denies: Anemia Past Surgical History Past Surgical History: Reports: Appendectomy, Cholecystectomy, Other - Common bile duct stent December 2016 Social History Information Source: Patient Lives with: Family Smoking Status: Current Every Day Smoker Cigarettes Packs Per Day: 1 Frequency of Alcohol Use: None Hx Recreational Drug Use: No Drugs: None Hx Prescription Drug Abuse: No - Advance Directive Resuscitation Status: Do Not Resuscitate Family History Family History: Reviewed & Not Pertinent, Other - Father of gastric carcinoma Parental Family History Reviewed: Yes Children Family History Reviewed: Yes Sibling(s) Family History Reviewed.: Yes Medication/Allergy Home Medications: Fentanyl [Duragesic 50 Mcg/Hr Transdermal Patch] 1 each TD Q3D 04/14/18 Hydromorphone HCl [Dilaudid] 8 mg PO Q4HP PRN 04/14/18 Lipase/Protease/Amylase [Creon Dr 6,000 Units Capsule] 3 cap PO AC 04/14/18 Omeprazole 20 mg PO DAILY 04/14/18 Ondansetron [Zofran Odt 4 mg Tablet] 4 mg PO Q6HP PRN 04/14/18 Promethazine HCl [Phenergan 25 mg Tablet] 25 mg PO Q6HP PRN 04/14/18 Allergies/Adverse Reactions: acetaminophen [From Vicodin] Allergy (Severe, Verified 04/14/18 10:57) Shortness of Breath hydrocodone [Hydrocodone] Allergy (Severe, Verified 04/14/18 10:57) Shortness of Breath oxycodone [From Percocet] Allergy (Severe, Verified 04/14/18 10:57) Shortness of Breath propoxyphene [From Darvocet-N] Allergy (Severe, Verified 04/14/18 10:57) Shortness of Breath tramadol [Tramadol] Allergy (Severe, Verified 04/14/18 10:57) Shortness of Breath Review of Systems Constitutional: PRESENT: anorexia, fatigue, weakness Cardiovascular: ABSENT: chest pain, dyspnea on exertion, edema, orthropnea, palpitations Gastrointestinal: PRESENT: abdominal pain, nausea Musculoskeletal: PRESENT: back pain Neurological: ABSENT: abnormal gait, abnormal speech, confusion, dizziness, focal weakness, syncope Endocrine: ABSENT: cold intolerance, heat intolerance, polydipsia, polyuria Physical Exam Vital Signs: Temp Pulse Resp BP Pulse Ox 99.1 F 66 17 137/66 H 100 04/15/18 07:31 04/15/18 07:31 04/15/18 07:31 04/15/18 07:31 04/15/18 07:31 Intake & Output 04/14/18 04/15/18 04/16/18 06:59 06:59 06:59 Intake Total 200 Balance 200 Weight 60.3 kg General appearance: PRESENT: no acute distress, well-developed, well-nourished Head exam: PRESENT: atraumatic, normocephalic Eye exam: PRESENT: conjunctiva pink, EOMI, PERRLA. ABSENT: scleral icterus Ear exam: PRESENT: normal external ear exam Mouth exam: PRESENT: moist, tongue midline Neck exam: ABSENT: carotid bruit, JVD, lymphadenopathy, thyromegaly Respiratory exam: PRESENT: clear to auscultation tanja. ABSENT: rales, rhonchi, wheezes Cardiovascular exam: PRESENT: RRR. ABSENT: diastolic murmur, rubs, systolic murmur Pulses: PRESENT: normal dorsalis pedis pul Vascular exam: PRESENT: normal capillary refill GI/Abdominal exam: PRESENT: normal bowel sounds, soft. ABSENT: distended, guarding, mass, organolmegaly, rebound, tenderness Rectal exam: PRESENT: deferred Extremities exam: PRESENT: full ROM. ABSENT: calf tenderness, clubbing, pedal edema Neurological exam: PRESENT: alert, awake, oriented to person, oriented to place , oriented to time, oriented to situation, CN II-XII grossly intact. ABSENT: motor sensory deficit Psychiatric exam: PRESENT: appropriate affect, normal mood. ABSENT: homicidal ideation, suicidal ideation Skin exam: PRESENT: dry, intact, warm. ABSENT: cyanosis, rash Results Laboratory Results: 04/15/18 04:13 04/15/18 04:13 04/15/18 04/15/18 04:13 04:13 WBC 11.4 H RBC 3.86 Hgb 11.9 L D Hct 34.5 L MCV 90 MCH 31.0 MCHC 34.6 RDW 13.2 Plt Count 258 Seg Neutrophils % 74.3 Lymphocytes % 19.3 Monocytes % 5.9 Eosinophils % 0.1 Basophils % 0.4 Absolute Neutrophils 8.5 H Absolute Lymphocytes 2.2 Absolute Monocytes 0.7 Absolute Eosinophils 0.0 Absolute Basophils 0.0 Sodium 139.7 Potassium 3.9 Chloride 106 Carbon Dioxide 22 Anion Gap 12 BUN 19 Creatinine 0.71 Est GFR ( Amer) > 60 Est GFR (Non-Af Amer) > 60 Glucose 111 H Calcium 9.3 Phosphorus 3.8 Magnesium 2.0 Impressions: Limited or Localized CT 04/14/18 12:20 IMPRESSION: Limited study as noted above due to the lack of IV contrast. Postsurgical changes at the level of the pancreatic head without a definite mass being identified. There are edematous or inflammatory changes in the central mesenteric fat with multiple adjacent and larger prominent mesenteric lymph nodes. The possibility of metastatic disease should be considered. A followup study with IV contrast may be of value for further evaluation. Other findings as noted above. Status: Image reviewed by me Assessment & Plan - Diagnosis (1) Cancer-related pain Plan: Appears to be cancer related pain most likely but we will see what the CT of the chest abdomen pelvis, continue with IV Dilaudid, started fentanyl patch back for her today. (2) Pancreatic cancer metastasized to intra-abdominal lymph node Is this a current diagnosis for this admission?: Yes Plan: CT imaging pending, will discuss further with the patient once we have results. - Time Time Spent: Greater than 70 Minutes - Inpatient Certification Based on my medical assessment, after consideration of the patient's comorbidities, presenting symptoms, or acuity I expect that the services needed warrant INPATIENT care.: Yes I certify that my determination is in accordance with my understanding of Medicare's requirements for reasonable and necessary INPATIENT services [42 CFR 412.3e].: Yes Medical Necessity: Need For IV Fluids, Need for Pain Control
[2018-04-15] MEDS: DOCUSATE SODIUM 100 MG CAPSULE PO SCH (09:20)
[2018-04-15] MEDS: ENOXAPARIN SODIUM INJ 40 MG/0.4 ML DISP.SYRIN SUBCUT SCH (09:21)
[2018-04-15] MEDS: FAMOTIDINE INJ/PF 20 MG/2 ML SDV IV SCH ×2 (09:24→23:20)
[2018-04-15] MEDS ORDERED: FENTANYL 50 MCG/HR PATCH.TD72 TD SCH (10:00)
--- NOTE | 2018-04-15 12:05 | RADIOLOGY REPORT (SQ) ---
EXAM DESCRIPTION: CT CHEST WITH; CT ABD/PELVIS WITH IV ORAL COMPLETED DATE/TIME: 04/15/2018 11:43 am REASON FOR STUDY: INDICATION PANCREATIC CANCER post Whipple procedure COMPARISON: PET-CT 02/17/2017 CT chest abdomen pelvis 11/21/2017, 09/13/2017, 06/20/2017 CT abdomen pelvis 01/22/2018 CONTRAST TYPE AND DOSE: contrast/concentration: Isovue 370.00 mg/ml; Total Contrast Delivered: 65.0 ml; Total Saline Delivered: 65.0 ml RENAL FUNCTION: Creatinine 0.7 TECHNIQUE: CT scan of the chest performed using helical scanning technique with dynamic intravenous contrast injection. Images reviewed with lung, soft tissue and bone windows. Reconstructed coronal a nd sagittal MPR images reviewed. All images stored on PACS. CT scan of the abdomen and pelvis performed with intravenous and with oral contrastusing helical scan alejandrina technique with dynamic intravenous contrast injection. Images reviewed with lung, soft tissue a nd bone windows. Reconstructed coronal and sagittal MPR images reviewed. Delayed images for evaluat ion of the urinary system also acquired and evaluated. All images stored on PACS. All CT scanners at this facility use dose modulation, iterative reconstruction, and/or weight based d osing when appropriate to reduce radiation dose to as low as reasonably achievable (ALARA). [facility]: Dose Right [facility]: CareDose [facility]: Dose Right [facility]: Teradose 4D [facility]: [employer] Technologies RADIATION DOSE: CT Rad equipment meets quality standard of care and radiation dose reduction techniq ues were employed. CTDIvol: 4.4 - 5.3 mGy. DLP: 692 mGy-cm. . LIMITATIONS: None. FINDINGS: CHEST: LUNGS AND PLEURA: No opacities, nodules, masses. No pneumothorax. No effusions. HILAR AND MEDIASTINAL STRUCTURES: No identified masses or abnormal nodes. HEART AND VASCULAR STRUCTURES: No aneurysm or dissection. No central pulmonary emboli. No pericardi al effusion. HARDWARE: None. THYROID AND OTHER SOFT TISSUES: No masses. No adenopathy. BONES: No significant finding. OTHER: No other significant finding. ABDOMEN AND PELVIS: LIVER: Diffuse fatty infiltration of the liver. There is air in left-sided intrahepatic bile ducts p ost Whipple procedure SPLEEN: Normal size. No focal lesions. PANCREAS: Pancreatic head has been resected. Body and tail are unremarkable. GALLBLADDER: Surgically absent ADRENAL GLANDS: No significant masses or asymmetry. RIGHT KIDNEY AND URETER: No solid masses. No significant calcification. No hydronephrosis or hydroure ter. LEFT KIDNEY AND URETER: No solid masses. No significant calcification. No hydronephrosis or hydrouret er. AORTA AND VESSELS: No aneurysm. No dissection. Renal arteries, celiac without stenosis. About 50% di ameter narrowing proximal SMA related to a rind of new soft tissue in the retroperitoneum. RETROPERITONEUM: There is canal a rind of soft tissue density surrounding the proximal SMA causing at least 50% narrowing proximal SMA. This is best shown on axial images 18 through 22 and coronal tatyana nstruction images 31 through 35. Soft tissue surrounding the SMA is new compared to previous studies . New lymph nodes are present in the surgical bed, along the dorsal aspect of the superior mesenteric a rtery and vein on axial image 27. There is a 1.5 x 1 cm lymph node and 1.2 x 0.7 cm lymph node. The se are new compared to previous studies. BOWEL AND PERITONEAL CAVITY: Patient drank oral contrast. No evidence of bowel obstruction. No mass es or inflammatory changes. No free fluid or peritoneal masses. APPENDIX: Normal. ABDOMINAL WALL: No masses. No hernias. PELVIS: No mass or free fluid. Normal bladder. Normal size female pelvic organs. BONES: No significant or acute findings. OTHER: No other significant finding. IMPRESSION: No CT evidence of metastatic disease to the chest Adenopathy in the upper abdominal retroperitoneum in the surgical bed. This is worrisome for tumor r ecurrence. TECHNICAL DOCUMENTATION: JOB ID: [id number] Quality ID # [id number]: Final reports with documentation of one or more dose reduction techniques (e.g., Au tomated exposure control, adjustment of the mA and/or kV according to patient size, use of iterative reconstruction technique) 2010 [email or web address]- All Rights Reserved Reading location - IP/workstation name: [email or web address]
--- NOTE | 2018-04-15 16:27 | PDOC PROGRESS REPORT ---
Subjective Progress Note for:: 04/15/18 Subjective:: She says she feels better today No nausea and abdomen feels better Reason For Visit: DEHYDRATION,ABDOMINAL PAIN WITH VOMITING Physical Exam Vital Signs: Temp Pulse Resp BP Pulse Ox 97.8 F 58 L 17 133/68 H 100 04/15/18 11:05 04/15/18 11:05 04/15/18 11:05 04/15/18 11:05 04/15/18 11:05 Intake & Output 04/14/18 04/15/18 04/16/18 06:59 06:59 06:59 Intake Total 200 Balance 200 Weight 60.3 kg General appearance: PRESENT: no acute distress, well-developed Head exam: PRESENT: atraumatic, normocephalic Eye exam: PRESENT: PERRLA. ABSENT: scleral icterus Ear exam: PRESENT: normal external ear exam Mouth exam: PRESENT: tongue midline Neck exam: ABSENT: carotid bruit, JVD, lymphadenopathy, thyromegaly Respiratory exam: PRESENT: clear to auscultation tanja. ABSENT: rales, rhonchi, wheezes Cardiovascular exam: PRESENT: RRR. ABSENT: diastolic murmur, rubs, systolic murmur Pulses: PRESENT: normal dorsalis pedis pul Vascular exam: PRESENT: normal capillary refill GI/Abdominal exam: PRESENT: normal bowel sounds, soft, tenderness - mild vague tenderness. ABSENT: distended, guarding, mass, organolmegaly, rebound Rectal exam: PRESENT: deferred Extremities exam: PRESENT: full ROM. ABSENT: calf tenderness, clubbing, pedal edema Neurological exam: PRESENT: alert, awake, oriented to person, oriented to place , oriented to time, oriented to situation, CN II-XII grossly intact. ABSENT: motor sensory deficit Psychiatric exam: PRESENT: appropriate affect, normal mood. ABSENT: homicidal ideation, suicidal ideation Skin exam: PRESENT: dry, intact, warm. ABSENT: cyanosis, rash Results Laboratory Results: 04/15/18 04:13 04/15/18 04:13 04/15/18 04/15/18 04:13 04:13 WBC 11.4 H RBC 3.86 Hgb 11.9 L D Hct 34.5 L MCV 90 MCH 31.0 MCHC 34.6 RDW 13.2 Plt Count 258 Seg Neutrophils % 74.3 Lymphocytes % 19.3 Monocytes % 5.9 Eosinophils % 0.1 Basophils % 0.4 Absolute Neutrophils 8.5 H Absolute Lymphocytes 2.2 Absolute Monocytes 0.7 Absolute Eosinophils 0.0 Absolute Basophils 0.0 Sodium 139.7 Potassium 3.9 Chloride 106 Carbon Dioxide 22 Anion Gap 12 BUN 19 Creatinine 0.71 Est GFR ( Amer) > 60 Est GFR (Non-Af Amer) > 60 Glucose 111 H Calcium 9.3 Phosphorus 3.8 Magnesium 2.0 Impressions: Limited or Localized CT 04/14/18 12:20 IMPRESSION: Limited study as noted above due to the lack of IV contrast. Postsurgical changes at the level of the pancreatic head without a definite mass being identified. There are edematous or inflammatory changes in the central mesenteric fat with multiple adjacent and larger prominent mesenteric lymph nodes. The possibility of metastatic disease should be considered. A followup study with IV contrast may be of value for further evaluation. Other findings as noted above. Abdomen/Pelvis CT 04/15/18 00:00 IMPRESSION: No CT evidence of metastatic disease to the chest Adenopathy in the upper abdominal retroperitoneum in the surgical bed. This is worrisome for tumor recurrence. Chest CT 04/15/18 00:00 IMPRESSION: No CT evidence of metastatic disease to the chest Adenopathy in the upper abdominal retroperitoneum in the surgical bed. This is worrisome for tumor recurrence. Assessment & Plan - Diagnosis (1) Intractable vomiting Qualifiers: Vomiting type: unspecified Nausea presence: with nausea Qualified Code(s) : R11.2 - Nausea with vomiting, unspecified Is this a current diagnosis for this admission?: Yes Plan: Resolved (2) Pancreatic cancer metastasized to intra-abdominal lymph node Is this a current diagnosis for this admission?: Yes Plan: Seen by Oncology Repeat CT with contrast ordered - Time Time Spent with patient: 15-24 minutes Medications reviewed and adjusted accordingly: Yes Anticipated discharge: Home Within: within 48 hours
[2018-04-16] MEDS: RINGERS SOLUTION,LACTATED 1,000 ML IV PRN ×3 (00:01→23:59)
[2018-04-16] MEDS: ZOLPIDEM TARTRATE 5 MG TABLET PO PRN ×2 (00:02→22:55)
[2018-04-16] MEDS: HYDROMORPHONE HCL INJ/PF 2 MG/ML AMPULE IV PRN ×6 (00:02→22:54)
[2018-04-16] MEDS: ONDANSETRON HCL INJ/PF 4 MG/2 ML SDV IV PRN ×2 (00:02→04:24)
[2018-04-16] MEDS ORDERED: NICOTINE 14 MG/24 HR PATCH.TD24 TD ONE (01:15)
--- NOTE | 2018-04-16 08:47 | PDOC PROGRESS REPORT ---
Subjective Progress Note for:: 04/16/18 Subjective:: Pt needed IV dilaudid q 4-5 hours, I reviewed imaging with pt extensively, she appears to have progression/recurrence of disease, will need PET as outpt Reason For Visit: DEHYDRATION,ABDOMINAL PAIN WITH VOMITING Physical Exam Vital Signs: Temp Pulse Resp BP Pulse Ox 98.6 F 59 L 19 111/55 L 100 04/15/18 23:44 04/15/18 23:44 04/15/18 23:44 04/15/18 23:44 04/15/18 23:44 Intake & Output 04/15/18 04/16/18 04/17/18 06:59 06:59 06:59 Intake Total 200 5169 Balance 200 5169 Weight 60.3 kg 62.4 kg General appearance: PRESENT: no acute distress, well-developed, well-nourished Head exam: PRESENT: atraumatic, normocephalic Eye exam: PRESENT: conjunctiva pink, EOMI, PERRLA. ABSENT: scleral icterus Ear exam: PRESENT: normal external ear exam Mouth exam: PRESENT: moist, tongue midline Neck exam: ABSENT: carotid bruit, JVD, lymphadenopathy, thyromegaly Respiratory exam: PRESENT: clear to auscultation tanja. ABSENT: rales, rhonchi, wheezes Cardiovascular exam: PRESENT: RRR. ABSENT: diastolic murmur, rubs, systolic murmur Pulses: PRESENT: normal dorsalis pedis pul Vascular exam: PRESENT: normal capillary refill GI/Abdominal exam: PRESENT: normal bowel sounds, soft. ABSENT: distended, guarding, mass, organolmegaly, rebound, tenderness Rectal exam: PRESENT: deferred Extremities exam: PRESENT: full ROM. ABSENT: calf tenderness, clubbing, pedal edema Neurological exam: PRESENT: alert, awake, oriented to person, oriented to place , oriented to time, oriented to situation, CN II-XII grossly intact. ABSENT: motor sensory deficit Psychiatric exam: PRESENT: appropriate affect, normal mood. ABSENT: homicidal ideation, suicidal ideation Skin exam: PRESENT: dry, intact, warm. ABSENT: cyanosis, rash Results Laboratory Results: 04/15/18 04:13 04/15/18 04:13 Impressions: Limited or Localized CT 04/14/18 12:20 IMPRESSION: Limited study as noted above due to the lack of IV contrast. Postsurgical changes at the level of the pancreatic head without a definite mass being identified. There are edematous or inflammatory changes in the central mesenteric fat with multiple adjacent and larger prominent mesenteric lymph nodes. The possibility of metastatic disease should be considered. A followup study with IV contrast may be of value for further evaluation. Other findings as noted above. Abdomen/Pelvis CT 04/15/18 00:00 IMPRESSION: No CT evidence of metastatic disease to the chest Adenopathy in the upper abdominal retroperitoneum in the surgical bed. This is worrisome for tumor recurrence. Chest CT 04/15/18 00:00 IMPRESSION: No CT evidence of metastatic disease to the chest Adenopathy in the upper abdominal retroperitoneum in the surgical bed. This is worrisome for tumor recurrence. Assessment & Plan - Diagnosis (1) Cancer-related pain Is this a current diagnosis for this admission?: Yes Plan: Will inc fentanly patch to 75, will cont' IV dilaudid, needs another 24 hours in w/ pain control, and if she is doing ok, will plan d/c tomorrow (2) Pancreatic cancer metastasized to intra-abdominal lymph node Is this a current diagnosis for this admission?: Yes Plan: need PET as outpt, I will set up - Time Time Spent with patient: 35 or more minutes Anticipated discharge: Home with Homehealth Within: within 24 hours Disposition: probable d/c home tomorrow, will need home health, I will set up today - Inpatient Certification Based on my medical assessment, after consideration of the patient's comorbidities, presenting symptoms, or acuity I expect that the services needed warrant INPATIENT care.: Yes I certify that my determination is in accordance with my understanding of Medicare's requirements for reasonable and necessary INPATIENT services [42 CFR 412.3e].: Yes Medical Necessity: Need for Pain Control
[2018-04-16] MEDS: NICOTINE 14 MG/24 HR PATCH.TD24 TD SCH (09:45)
[2018-04-16] MEDS: ENOXAPARIN SODIUM INJ 40 MG/0.4 ML DISP.SYRIN SUBCUT SCH (09:45)
[2018-04-16] MEDS: FAMOTIDINE INJ/PF 20 MG/2 ML SDV IV SCH ×2 (09:45→22:54)
[2018-04-16] MEDS: DOCUSATE SODIUM 100 MG CAPSULE PO SCH (09:45)
[2018-04-16] MEDS ORDERED: FENTANYL 75 MCG/HR PATCH.TD72 TD SCH (10:00)
--- NOTE | 2018-04-16 17:14 | PDOC PROGRESS REPORT ---
Subjective Progress Note for:: 04/16/18 Subjective:: She says she feels better today No nausea and abdomen feels better She is aware of the CT result as per her discussion with Dr. Jaffe Reason For Visit: DEHYDRATION,ABDOMINAL PAIN WITH VOMITING Physical Exam Vital Signs: Temp Pulse Resp BP Pulse Ox 98.5 F 67 16 138/64 H 99 04/16/18 12:15 04/16/18 14:03 04/16/18 14:03 04/16/18 12:15 04/16/18 14:03 Intake & Output 04/15/18 04/16/18 04/17/18 06:59 06:59 06:59 Intake Total 200 5169 550 Balance 200 5169 550 Weight 60.3 kg 62.4 kg General appearance: PRESENT: no acute distress, well-developed Head exam: PRESENT: atraumatic Neck exam: ABSENT: carotid bruit, JVD, lymphadenopathy, thyromegaly Respiratory exam: PRESENT: clear to auscultation tanja, unlabored. ABSENT: tachypnea, wheezes Cardiovascular exam: PRESENT: RRR. ABSENT: diastolic murmur, rubs, systolic murmur GI/Abdominal exam: PRESENT: normal bowel sounds, soft. ABSENT: distended, guarding, mass, organolmegaly, rebound, tenderness Rectal exam: PRESENT: deferred Extremities exam: PRESENT: full ROM. ABSENT: calf tenderness, clubbing, pedal edema Neurological exam: PRESENT: alert, awake, oriented to person, oriented to place , oriented to time, oriented to situation, CN II-XII grossly intact. ABSENT: motor sensory deficit Psychiatric exam: PRESENT: anxious Results Laboratory Results: 04/15/18 04:13 04/15/18 04:13 Impressions: Limited or Localized CT 04/14/18 12:20 IMPRESSION: Limited study as noted above due to the lack of IV contrast. Postsurgical changes at the level of the pancreatic head without a definite mass being identified. There are edematous or inflammatory changes in the central mesenteric fat with multiple adjacent and larger prominent mesenteric lymph nodes. The possibility of metastatic disease should be considered. A followup study with IV contrast may be of value for further evaluation. Other findings as noted above. Abdomen/Pelvis CT 04/15/18 00:00 IMPRESSION: No CT evidence of metastatic disease to the chest Adenopathy in the upper abdominal retroperitoneum in the surgical bed. This is worrisome for tumor recurrence. Chest CT 04/15/18 00:00 IMPRESSION: No CT evidence of metastatic disease to the chest Adenopathy in the upper abdominal retroperitoneum in the surgical bed. This is worrisome for tumor recurrence. Assessment & Plan - Diagnosis (1) Intractable vomiting Qualifiers: Vomiting type: unspecified Nausea presence: with nausea Qualified Code(s) : R11.2 - Nausea with vomiting, unspecified Is this a current diagnosis for this admission?: Yes Plan: Resolved. Will continue supportive care (2) Pancreatic cancer metastasized to intra-abdominal lymph node Is this a current diagnosis for this admission?: Yes Plan: F/u with Dr. Jaffe as outpatient for PET scan (3) Cancer-related pain Is this a current diagnosis for this admission?: Yes Plan: Fentanyl has been increased. Will continue with IV Dilaudid. I anticipate she can be dc in am once her pain is better controlled - Time Time Spent with patient: 15-24 minutes Medications reviewed and adjusted accordingly: Yes Anticipated discharge: Home Within: within 24 hours - Inpatient Certification Based on my medical assessment, after consideration of the patient's comorbidities, presenting symptoms, or acuity I expect that the services needed warrant INPATIENT care.: Yes Medical Necessity: Need for Pain Control
[2018-04-16] MEDS: PROMETHAZINE HCL INJ 25 MG/1 ML VIAL IV PRN ×2 (17:35→22:54)
[2018-04-17] MEDS ORDERED: HYDROMORPHONE HCL INJ/PF 2 MG/ML AMPULE IV PRN (08:30)
--- NOTE | 2018-04-17 08:36 | PDOC PROGRESS REPORT ---
Subjective Progress Note for:: 04/17/18 Subjective:: No acute events overnight but yesterday pt needed 6-7 doses of IV dilaudid, of note she did begin clear diet and did not have any creon ordered which she was taking for lack of panc enz post surgery. Today discussed that we will give another 24 hours inpt, I have placed her back on creon, with diet advance today as tolerated, placed oral dilaudid for lower pain scale w. IV rescue dose if needed. If tolerated over next 24 hours d/c home tomorrow. Reason For Visit: DEHYDRATION,ABDOMINAL PAIN WITH VOMITING Physical Exam Vital Signs: Temp Pulse Resp BP Pulse Ox 98.3 F 67 16 125/65 96 04/17/18 07:22 04/17/18 07:22 04/17/18 07:22 04/17/18 07:22 04/17/18 07:22 Intake & Output 04/16/18 04/17/18 04/18/18 06:59 06:59 06:59 Intake Total 5169 2790 Balance 5169 2790 Weight 62.4 kg 62.4 kg General appearance: PRESENT: no acute distress, well-developed, well-nourished Head exam: PRESENT: atraumatic, normocephalic Eye exam: PRESENT: conjunctiva pink, EOMI, PERRLA. ABSENT: scleral icterus Ear exam: PRESENT: normal external ear exam Mouth exam: PRESENT: moist, tongue midline Neck exam: ABSENT: carotid bruit, JVD, lymphadenopathy, thyromegaly Respiratory exam: PRESENT: clear to auscultation tanja. ABSENT: rales, rhonchi, wheezes Cardiovascular exam: PRESENT: RRR. ABSENT: diastolic murmur, rubs, systolic murmur Pulses: PRESENT: normal dorsalis pedis pul Vascular exam: PRESENT: normal capillary refill GI/Abdominal exam: PRESENT: normal bowel sounds, soft. ABSENT: distended, guarding, mass, organolmegaly, rebound, tenderness Rectal exam: PRESENT: deferred Extremities exam: PRESENT: full ROM. ABSENT: calf tenderness, clubbing, pedal edema Neurological exam: PRESENT: alert, awake, oriented to person, oriented to place , oriented to time, oriented to situation, CN II-XII grossly intact. ABSENT: motor sensory deficit Psychiatric exam: PRESENT: appropriate affect, normal mood. ABSENT: homicidal ideation, suicidal ideation Skin exam: PRESENT: dry, intact, warm. ABSENT: cyanosis, rash Results Laboratory Results: 04/15/18 04:13 04/15/18 04:13 Impressions: Limited or Localized CT 04/14/18 12:20 IMPRESSION: Limited study as noted above due to the lack of IV contrast. Postsurgical changes at the level of the pancreatic head without a definite mass being identified. There are edematous or inflammatory changes in the central mesenteric fat with multiple adjacent and larger prominent mesenteric lymph nodes. The possibility of metastatic disease should be considered. A followup study with IV contrast may be of value for further evaluation. Other findings as noted above. Abdomen/Pelvis CT 04/15/18 00:00 IMPRESSION: No CT evidence of metastatic disease to the chest Adenopathy in the upper abdominal retroperitoneum in the surgical bed. This is worrisome for tumor recurrence. Chest CT 04/15/18 00:00 IMPRESSION: No CT evidence of metastatic disease to the chest Adenopathy in the upper abdominal retroperitoneum in the surgical bed. This is worrisome for tumor recurrence. Assessment & Plan - Diagnosis (1) Cancer-related pain Is this a current diagnosis for this admission?: Yes Plan: Plan as in HPI, cont current regimen (2) Pancreatic cancer metastasized to intra-abdominal lymph node Is this a current diagnosis for this admission?: Yes Plan: Pt is progressing causing this pain admission, will have f/u as outpt - Time Time Spent with patient: 35 or more minutes Medications reviewed and adjusted accordingly: Yes Anticipated discharge: Home with Homehealth Within: within 24 hours - Inpatient Certification Based on my medical assessment, after consideration of the patient's comorbidities, presenting symptoms, or acuity I expect that the services needed warrant INPATIENT care.: Yes I certify that my determination is in accordance with my understanding of Medicare's requirements for reasonable and necessary INPATIENT services [42 CFR 412.3e].: Yes Medical Necessity: Need for Pain Control
[2018-04-17] MEDS: DOCUSATE SODIUM 100 MG CAPSULE PO SCH (09:01)
[2018-04-17] MEDS: ENOXAPARIN SODIUM INJ 40 MG/0.4 ML DISP.SYRIN SUBCUT SCH (09:01)
[2018-04-17] MEDS: NICOTINE 14 MG/24 HR PATCH.TD24 TD SCH (09:07)
[2018-04-17] MEDS: FAMOTIDINE INJ/PF 20 MG/2 ML SDV IV SCH ×2 (09:07→21:09)
[2018-04-17] MEDS: PROMETHAZINE HCL INJ 25 MG/1 ML VIAL IV PRN ×2 (12:17→19:35)
[2018-04-17] MEDS: HYDROMORPHONE HCL 2 MG TABLET PO PRN ×3 (12:17→21:09)
[2018-04-17] MEDS: PROTEASE PO SCH (15:44)
[2018-04-17] MEDS: AMYLASE PO SCH (15:44)
[2018-04-17] MEDS: RINGERS SOLUTION,LACTATED 1,000 ML IV PRN (15:44)
[2018-04-17] MEDS: LIPASE PO SCH (15:44)
--- NOTE | 2018-04-17 15:54 | PDOC PROGRESS REPORT ---
Subjective Progress Note for:: 04/17/18 Subjective:: I seen patient sitting up in bed. She is awake alert and oriented. She reports this her nausea and vomiting subsided her diet is advanced and she tolerates well. Reason For Visit: DEHYDRATION, INTRACTABLE VOMITING, PANCREATIC Physical Exam Vital Signs: Temp Pulse Resp BP Pulse Ox 98.2 F 64 16 131/56 H 99 04/17/18 11:10 04/17/18 11:10 04/17/18 11:10 04/17/18 11:10 04/17/18 11:10 Intake & Output 04/16/18 04/17/18 04/18/18 06:59 06:59 06:59 Intake Total 5169 2790 Balance 5169 2790 Weight 62.4 kg 62.4 kg General appearance: PRESENT: no acute distress Head exam: PRESENT: atraumatic, normocephalic Eye exam: PRESENT: conjunctiva pink, EOMI, PERRLA. ABSENT: scleral icterus Neck exam: ABSENT: carotid bruit, JVD, lymphadenopathy, thyromegaly Respiratory exam: PRESENT: clear to auscultation tanja. ABSENT: rales, rhonchi, wheezes Cardiovascular exam: PRESENT: RRR. ABSENT: diastolic murmur, rubs, systolic murmur GI/Abdominal exam: PRESENT: other - She has epigastric tenderness Neurological exam: PRESENT: alert, awake, oriented to person, oriented to place , oriented to time, oriented to situation, CN II-XII grossly intact. ABSENT: motor sensory deficit Psychiatric exam: PRESENT: appropriate affect, normal mood. ABSENT: homicidal ideation, suicidal ideation Results Laboratory Results: 04/15/18 04:13 04/15/18 04:13 Impressions: Limited or Localized CT 04/14/18 12:20 IMPRESSION: Limited study as noted above due to the lack of IV contrast. Postsurgical changes at the level of the pancreatic head without a definite mass being identified. There are edematous or inflammatory changes in the central mesenteric fat with multiple adjacent and larger prominent mesenteric lymph nodes. The possibility of metastatic disease should be considered. A followup study with IV contrast may be of value for further evaluation. Other findings as noted above. Abdomen/Pelvis CT 04/15/18 00:00 IMPRESSION: No CT evidence of metastatic disease to the chest Adenopathy in the upper abdominal retroperitoneum in the surgical bed. This is worrisome for tumor recurrence. Chest CT 04/15/18 00:00 IMPRESSION: No CT evidence of metastatic disease to the chest Adenopathy in the upper abdominal retroperitoneum in the surgical bed. This is worrisome for tumor recurrence. Assessment & Plan - Diagnosis (1) Pancreatic cancer metastasized to intra-abdominal lymph node Is this a current diagnosis for this admission?: Yes Plan: During this admission patient had CT of the abdomen which revealed enlarged mesenteric lymph nodes possibly metastatic. Patient is being followed by her primary oncologist. (2) Abdominal pain Is this a current diagnosis for this admission?: Yes Plan: Her abdominal pain is subsiding. If patient remains stable she is potential discharge for tomorrow. - Time Time Spent with patient: 25-34 minutes
[2018-04-17] MEDS: ZOLPIDEM TARTRATE 5 MG TABLET PO PRN (21:10)
[2018-04-18] MEDS: PROMETHAZINE HCL INJ 25 MG/1 ML VIAL IV PRN ×2 (03:33→10:17)
[2018-04-18] MEDS: HYDROMORPHONE HCL 2 MG TABLET PO PRN ×2 (03:33→10:17)
[2018-04-18] MEDS: PROTEASE PO SCH ×2 (08:17→10:23)
[2018-04-18] MEDS: AMYLASE PO SCH ×2 (08:17→10:23)
[2018-04-18] MEDS: LIPASE PO SCH ×2 (08:17→10:23)
--- NOTE | 2018-04-18 08:58 | PDOC PROGRESS REPORT ---
Subjective Progress Note for:: 04/18/18 Subjective:: Patient sitting up in bed. No complaints. Anxious to go home today. Reason For Visit: DEHYDRATION, INTRACTABLE VOMITING, PANCREATIC Physical Exam Vital Signs: Temp Pulse Resp BP Pulse Ox 98.8 F 66 16 113/60 100 04/18/18 07:27 04/18/18 07:27 04/18/18 07:27 04/18/18 07:27 04/18/18 07:27 Intake & Output 04/17/18 04/18/18 04/19/18 06:59 06:59 06:59 Intake Total 2790 2857 Balance 2790 2857 Weight 62.4 kg 62.4 kg General appearance: PRESENT: no acute distress Respiratory exam: PRESENT: unlabored Musculoskeletal exam: PRESENT: normal inspection Neurological exam: PRESENT: alert, awake, oriented to person, oriented to place , oriented to time, oriented to situation Psychiatric exam: PRESENT: appropriate affect Skin exam: PRESENT: normal color Results Laboratory Results: 04/15/18 04:13 04/15/18 04:13 Impressions: Limited or Localized CT 04/14/18 12:20 IMPRESSION: Limited study as noted above due to the lack of IV contrast. Postsurgical changes at the level of the pancreatic head without a definite mass being identified. There are edematous or inflammatory changes in the central mesenteric fat with multiple adjacent and larger prominent mesenteric lymph nodes. The possibility of metastatic disease should be considered. A followup study with IV contrast may be of value for further evaluation. Other findings as noted above. Abdomen/Pelvis CT 04/15/18 00:00 IMPRESSION: No CT evidence of metastatic disease to the chest Adenopathy in the upper abdominal retroperitoneum in the surgical bed. This is worrisome for tumor recurrence. Chest CT 04/15/18 00:00 IMPRESSION: No CT evidence of metastatic disease to the chest Adenopathy in the upper abdominal retroperitoneum in the surgical bed. This is worrisome for tumor recurrence. Assessment & Plan - Diagnosis (1) Pancreatic cancer metastasized to intra-abdominal lymph node Is this a current diagnosis for this admission?: Yes Plan: Will discuss further treatment as outpatient. (2) Abdominal pain Is this a current diagnosis for this admission?: Yes Plan: Now controlled. (3) Intractable vomiting Qualifiers: Vomiting type: unspecified Nausea presence: with nausea Qualified Code(s) : R11.2 - Nausea with vomiting, unspecified Is this a current diagnosis for this admission?: Yes Plan: Now resolved. - Plan Summary Plan Summary: I agree with plans for discharge today. She will follow-up with Dr. Youssef in the office.
[2018-04-18] MEDS: FAMOTIDINE INJ/PF 20 MG/2 ML SDV IV SCH (10:16)
[2018-04-18] MEDS: ENOXAPARIN SODIUM INJ 40 MG/0.4 ML DISP.SYRIN SUBCUT SCH (10:18)
[2018-04-18] MEDS: DOCUSATE SODIUM 100 MG CAPSULE PO SCH (10:24)
[2018-04-18] MEDS: NICOTINE 14 MG/24 HR PATCH.TD24 TD SCH (10:24)
--- NOTE | 2018-04-18 10:30 | PDOC DISCHARGE SUMMARY ---
General - Admit/Disc Date/PCP Admission Date/Primary Care Provider: 04/14/18 17:12 Discharge Date: 04/18/18 - Discharge Diagnosis (1) Pancreatic cancer metastasized to intra-abdominal lymph node Is this a current diagnosis for this admission?: Yes (2) Abdominal pain Is this a current diagnosis for this admission?: Yes - Additional Information Resuscitation Status: Do Not Resuscitate Discharge Diet: Regular Discharge Activity: Activity As Tolerated Home Medications: Fentanyl [Duragesic 50 Mcg/Hr Transdermal Patch] 1 each TD Q3D 04/14/18 Hydromorphone HCl [Dilaudid] 8 mg PO Q4HP PRN 04/14/18 Lipase/Protease/Amylase [Creon Dr 6,000 Units Capsule] 3 cap PO AC 04/14/18 Omeprazole 20 mg PO DAILY 04/14/18 Ondansetron [Zofran Odt 4 mg Tablet] 4 mg PO Q6HP PRN 04/14/18 Promethazine HCl [Phenergan 25 mg Tablet] 25 mg PO Q6HP PRN 04/14/18 History of Present Illness History of Present Illness: RENEE BURRIS is a 57 year old female patient presents emergency room with complaints of abdominal pain right-sided as well as right flank pain. She gives a prior history of pancreatic cancer which she thought was in remission. Plan of the workup done in the emergency room was a lipid CT scan which unfortunately revealed edematous changes in the central mesenteric fat with multiple adjacent enlarged prominent mesenteric lymph nodes with a possibility of metastatic disease being considered. Dr. Arzola has been consulted by the emergency room physician. Patient states she feels better after receiving some IV fluids and analgesic. Hospital Course Hospital Course: Patient has been cautiously hydrated and treated with zofran for vomting and pain medication.Currently her vomiting and abdominal pain has subsided.Her diet has been advanced and she tolerates well.This morning patient reevaluated by her primary oncologist who agreed with her discharge will follow her in his office. Physical Exam Vital Signs: Temp Pulse Resp BP Pulse Ox 98.8 F 66 16 113/60 100 04/18/18 07:27 04/18/18 07:27 04/18/18 07:27 04/18/18 07:27 04/18/18 07:27 Intake & Output 04/17/18 04/18/18 04/19/18 06:59 06:59 06:59 Intake Total 2790 2850 Balance 2790 2857 Weight 62.4 kg 62.4 kg General appearance: PRESENT: no acute distress Head exam: PRESENT: atraumatic, normocephalic Respiratory exam: PRESENT: clear to auscultation tanja. ABSENT: rales, rhonchi, wheezes Cardiovascular exam: PRESENT: RRR. ABSENT: diastolic murmur, rubs, systolic murmur Pulses: PRESENT: normal dorsalis pedis pul GI/Abdominal exam: PRESENT: normal bowel sounds, soft. ABSENT: distended, guarding, mass, organolmegaly, rebound, tenderness Musculoskeletal exam: ABSENT: ambulatory, deformity, dislocation, full ROM, normal inspection, tenderness, other Neurological exam: PRESENT: alert, awake, oriented to person, oriented to place , oriented to time, oriented to situation, CN II-XII grossly intact. ABSENT: motor sensory deficit Psychiatric exam: PRESENT: appropriate affect, normal mood. ABSENT: homicidal ideation, suicidal ideation Results Laboratory Results: 04/15/18 04:13 04/15/18 04:13 Impressions: Limited or Localized CT 04/14/18 12:20 IMPRESSION: Limited study as noted above due to the lack of IV contrast. Postsurgical changes at the level of the pancreatic head without a definite mass being identified. There are edematous or inflammatory changes in the central mesenteric fat with multiple adjacent and larger prominent mesenteric lymph nodes. The possibility of metastatic disease should be considered. A followup study with IV contrast may be of value for further evaluation. Other findings as noted above. Abdomen/Pelvis CT 04/15/18 00:00 IMPRESSION: No CT evidence of metastatic disease to the chest Adenopathy in the upper abdominal retroperitoneum in the surgical bed. This is worrisome for tumor recurrence. Chest CT 04/15/18 00:00 IMPRESSION: No CT evidence of metastatic disease to the chest Adenopathy in the upper abdominal retroperitoneum in the surgical bed. This is worrisome for tumor recurrence. Qualifiers - * PATIENT BEING DISCHARGED WITH ANY OF THE FOLLOWING DIAGNOSIS: No
[2018-04-18 11:24] VITALS: BP 132/64
== END 2018-04-18 11:30 | disposition home or self-care (01) | DRG 841 ==
LOC: ER 10:39 → EH 17:12 → UNDOADMOB 17:12 → INTOOBSV 17:12 → EH 17:22 → OBSVTOIN 17:22 → 4N 22:45 → EH 22:45 → UNDOADMOB 04-17 14:10 → EH 04-17 14:10 → 4N 04-17 14:10 → UNDODISOB 04-18 11:30
PROVIDERS: ADMIT Internal Medicine; ATTEND Internal Medicine
DX: C77.2 Secondary and unspecified malignant neoplasm of intra-abdominal lymph nodes (principal); C25.0 Malignant neoplasm of head of pancreas; C78.89 Secondary malignant neoplasm of other digestive organs; G89.3 Neoplasm related pain (acute) (chronic); Z66 Do not resuscitate; E86.0 Dehydration; E78.00 Pure hypercholesterolemia, unspecified; R10.9 Unspecified abdominal pain; G40.909 Epilepsy, unspecified, not intractable, without status epilepticus; F17.210 Nicotine dependence, cigarettes, uncomplicated
CPT/HCPCS: 36415; 71260; 74177; 76380; 80048; 80053; 81001; 83690; 83735; 84100; 85025; 96361; 96374; 99285; A9270-GY; G0378; J1170; J1642; J1650; J2405; J2550; J3010; J3490; J7030; J7120; S0028; S0119

== ENCOUNTER → 2018-04-20 | Outpatient (CLI) | payer MEDICARE, MEDICAID ==
--- NOTE | 2018-04-22 16:35 | RADIOLOGY REPORT (SQ) ---
EXAM DESCRIPTION: PET CT SKULL/THIGH COMPLETED DATE/TIME: 04/20/2018 7:25 pm REASON FOR STUDY: PANCREASE CA C25.0 MALIGNANT NEOPLASM OF HEAD OF PANCREAS COMPARISON: PET-CT 02/17/2017 CT chest abdomen pelvis 06/20/2017, 11/21/2017, 04/15/2018 RADIONUCLIDE AND DOSE: 16.5 mCi F18 FDG The route of agent administration: Intravenous FASTING BLOOD SUGAR: 99 mg/dl CONTRAST TYPE AND DOSE: No CT contrast given. TECHNIQUE: Blood glucose level was verified. Above dose of FDG was injected intravenously. 2-D seg mented attenuation correction images were obtained from the base of the skull to the midthighs. Nonc ontrast CT images were obtained for attenuation correction and fusion with emission images. CT image s were performed without oral or intravenous contrast and are not sensitive for parenchymal lesions. A series of overlapping emission PET images were obtained. [facility] by the radiologist. Images stored on PACS. LIMITATIONS: None. FINDINGS: HEAD AND NECK: Increased activity is present over the left upper premolar tooth socket wi th SUV of 9.0. This could be related to recent oral surgery or infected tooth root socket. CHEST: No areas of abnormal metabolic activity in the chest. ABDOMEN AND PELVIS: There is blurring of fat planes with soft tissue stranding in the retroperitoneum surrounding the SMA. This soft tissue stranding measures 3.3 SUV, and correlates with findings on C T exam 04/15/2018. This is abnormal but nonspecific. Adenopathy seen 04/15/2018 along the dorsal aspect of the superior mesenteric artery and vein are non metabolic and stable in size. Lymph nodes 1.4 x 1 cm in size and 1.1 x 0.7 cm in size are present on axial images 135-137, unchanged. PROXIMAL LOWER EXTREMITIES: No areas of abnormal metabolic activity in the soft tissues of the lower extremities. BONES: No abnormal metabolic activity in the visualized skeleton. ADDITIONAL CT FINDINGS: Post Whipple procedure with resection of the pancreatic head/gallbladder and biliary enteric anastomosis. Clips post tubal ligation OTHER: Liver background activity 2.0 SUV. Blood pool activity 1.5 SUV. IMPRESSION: Soft tissue stranding seen around the superior mesenteric artery on 04/15/2018 CT abdomen pelvis correlate with mild increased metabolic activity on today's PET-CT exam. This is abnormal bu t nonspecific Lymph nodes seen 04/15/2018 along the rightward aspect of the superior mesenteric artery and vein are not metabolically active on today's PET-CT TECHNICAL DOCUMENTATION: JOB ID: [id number] [employer]- All Rights Reserved Reading location - IP/workstation name: [email or web address]
== END ==
LOC: RAD 16:50
PROVIDERS: ATTEND Internal Medicine
DX: C25.0 Malignant neoplasm of head of pancreas (principal)
CPT/HCPCS: 78815; A9552

== ENCOUNTER → 2018-06-03 | Outpatient (CLI) | payer MEDICARE, MEDICAID ==
--- NOTE | 2018-06-03 12:37 | RADIOLOGY REPORT (SQ) ---
EXAM DESCRIPTION: CT CHEST WITH; CT ABD/PELVIS WITH IV ONLY COMPLETED DATE/TIME: 06/03/2018 10:40 am; 06/03/2018 10:47 am REASON FOR STUDY: PANCREATIC CA (C25.0) C25.0 MALIGNANT NEOPLASM OF HEAD OF PANCREAS COMPARISON: PET-CT 04/20/2018 CT chest abdomen pelvis 04/15/2018, 11/21/2017 CT abdomen pelvis 04/14/2018, 01/22/2018 CONTRAST TYPE AND DOSE: contrast/concentration: Isovue 370.00 mg/ml; Total Contrast Delivered: 59.4 ml; Total Saline Delivered: 66.0 ml RENAL FUNCTION: Creatinine 0.6 TECHNIQUE: CT scan of the chest performed using helical scanning technique with dynamic intravenous contrast injection. Images reviewed with lung, soft tissue and bone windows. Reconstructed coronal a nd sagittal MPR images reviewed. All images stored on PACS. CT scan of the abdomen and pelvis performed with intravenous and without oral contrastusing helical s omi technique with dynamic intravenous contrast injection. Images reviewed with lung, soft tissu e and bone windows. Reconstructed coronal and sagittal MPR images reviewed. Delayed images for eval uation of the urinary system also acquired and evaluated. All images stored on PACS. All CT scanners at this facility use dose modulation, iterative reconstruction, and/or weight based d osing when appropriate to reduce radiation dose to as low as reasonably achievable (ALARA). [facility]: Dose Right [facility]: CareDose [facility]: Dose Right [facility]: Teradose 4D [facility]: [employer] RADIATION DOSE: CT Rad equipment meets quality standard of care and radiation dose reduction techniq ues were employed. CTDIvol: 4.4 - 4.6 mGy. DLP: 604 mGy-cm. . LIMITATIONS: None. FINDINGS: CHEST: LUNGS AND PLEURA: No opacities, nodules, masses. No pneumothorax. No effusions. HILAR AND MEDIASTINAL STRUCTURES: No identified masses or abnormal nodes. HEART AND VASCULAR STRUCTURES: No aneurysm or dissection. No central pulmonary emboli. No pericardi al effusion. HARDWARE: Right-sided permanent central line tip superior vena cava THYROID AND OTHER SOFT TISSUES: No masses. No adenopathy. BONES: No significant finding. OTHER: No other significant finding. ABDOMEN AND PELVIS: LIVER: Normal size. No masses. No dilated ducts. SPLEEN: Normal size. No focal lesions. PANCREAS: Partial resection of the pancreatic head is present with a biliary and pancreatic anastomos is to small bowel. Patent biliary enteric anastomosis with few air bubbles in nondistended left lobe liver ducts. Pancreatic tail is unremarkable. GALLBLADDER: Surgically absent ADRENAL GLANDS: No significant masses or asymmetry. RIGHT KIDNEY AND URETER: No solid masses. No significant calcification. No hydronephrosis or hydroure ter. LEFT KIDNEY AND URETER: No solid masses. No significant calcification. No hydronephrosis or hydrouret er. AORTA AND VESSELS: In the upper abdomen para aortic soft tissues axial image 14 through 24, a rind of soft tissue surrounds the proximal SMA, 3.2 x 2.6 cm in size. This had mild metabolic activity on p rior PET-CT 04/20/2018. This is stable in size compared to 04/20/[address] abdomen pelvis 04/15/2018. However, there is further mass effect on the SMA with greater than 75% SMA narrowing. This is best shown on coronal abdominal CT reconstruction images 30-36, and sagittal chest reconstruction image n umber 41. Abdominal aorta and major visceral branches are otherwise unremarkable. RETROPERITONEUM: There are lymph nodes along the rightward aspect of the SMA, unchanged from 8 and 04/15/2018. BOWEL AND PERITONEAL CAVITY: No masses or inflammatory changes. No free fluid or peritoneal masses. APPENDIX: Surgically absent ABDOMINAL WALL: No masses. No hernias. PELVIS: No mass or free fluid. Normal bladder. BONES: No significant or acute findings. OTHER: No other significant finding. IMPRESSION: NORMAL CT OF THE CHEST WITH IV CONTRAST. Post surgical changes in the right upper quadrant with resection of the pancreatic head, cholecystect abe and biliary enteric/pancreatic enteric anastomosis. Stable size soft tissue mass around the proximal superior mesenteric artery with increase in vessel n arrowing since imaging from March. Stable lymph nodes along the rightward aspect of the SMA. TECHNICAL DOCUMENTATION: JOB ID: [id number] Quality ID # [id number]: Final reports with documentation of one or more dose reduction techniques (e.g., Au tomated exposure control, adjustment of the mA and/or kV according to patient size, use of iterative reconstruction technique) 2010 [employer]- All Rights Reserved Reading location - IP/workstation name: [facility]
== END ==
LOC: RAD 09:40
PROVIDERS: ATTEND Internal Medicine
DX: C25.0 Malignant neoplasm of head of pancreas (principal)
CPT/HCPCS: 71260; 74177; J1642

== ENCOUNTER 2018-08-17 11:42 | Emergency (ER) | payer MEDICARE, MEDICAID ==
[2018-08-17] MEDS ORDERED: ONDANSETRON HCL INJ/PF 4 MG/2 ML SDV IV ONE (14:27)
[2018-08-17] MEDS ORDERED: NORMAL SALINE 1000 ML 1,000 ML IV ONE (14:27)
--- NOTE | 2018-08-17 14:29 | ER Document Report ---
ED Medical Screen (RME) - General Chief Complaint: Fever Stated Complaint: FEVER Time Seen by Provider: 08/17/18 14:22 Mode of Arrival: Wheelchair Information source: Patient Notes: Patient is a 58-year-old female who presents with chief complaint of fever and body aches that started yesterday. Patient has a history of stage IV pancreatic cancer as well as cancer in the lymph nodes. Patient reports last chemotherapy was 1 month ago. Patient also reports associated nausea, vomiting and diarrhea as well as right flank pain. Patient denies any urinary symptoms. Exam: Right CVA tenderness present. Lung sounds clear to auscultation bilaterally. I have greeted and performed a rapid initial assessment of this patient. A comprehensive ED assessment and evaluation of the patient, analysis of test results and completion of the medical decision making process will be conducted by additional ED providers. Dictation of this chart was performed using voice recognition software; therefore, there may be some unintended grammatical errors. TRAVEL OUTSIDE OF THE [place] IN LAST 30 DAYS: No - Related Data Allergies/Adverse Reactions: acetaminophen [From Vicodin] Allergy (Severe, Verified 08/17/18 14:22) Shortness of Breath hydrocodone [Hydrocodone] Allergy (Severe, Verified 08/17/18 14:22) Shortness of Breath oxycodone [From Percocet] Allergy (Severe, Verified 08/17/18 14:22) Shortness of Breath propoxyphene [From Darvocet-N] Allergy (Severe, Verified 08/17/18 14:22) Shortness of Breath tramadol [Tramadol] Allergy (Severe, Verified 08/17/18 14:22) Shortness of Breath Past Medical History - Social History Chew tobacco use (# tins/day): No Frequency of alcohol use: Rare Drug Abuse: None - Past Medical History Cardiac Medical History: Reports: Hx Hypercholesterolemia Denies: Hx Coronary Artery Disease, Hx Heart Attack, Hx Hypertension Pulmonary Medical History: Denies: Hx Asthma, Hx Bronchitis, Hx COPD, Hx Pneumonia Neurological Medical History: Reports: Hx Seizures. Denies: Hx Cerebrovascular Accident Renal/ Medical History: Denies: Hx Peritoneal Dialysis Musculoskeltal Medical History: Denies Hx Arthritis Psychiatric Medical History: Reports: Hx Bipolar Disorder Denies: Hx Depression Past Surgical History: Reports: Hx Abdominal Surgery - wipal, Hx Appendectomy, Hx Cholecystectomy, Hx Gynecologic Surgery - tubal ligation, Hx Oral Surgery - tmj, Hx Vascular Surgery - carpal tunnel, Other - Common bile duct stent December 2016 - Immunizations Hx Diphtheria, Pertussis, Tetanus Vaccination: Yes Physical Exam - Vital signs Vitals: Temp Pulse Resp BP Pulse Ox 98.0 F 60 16 127/55 H 100 08/17/18 12:06 08/17/18 12:06 08/17/18 12:06 08/17/18 12:06 08/17/18 12:06 Course - Vital Signs Vital signs: Temp Pulse Resp BP Pulse Ox 98.0 F 60 16 127/55 H 100 08/17/18 12:06 08/17/18 12:06 08/17/18 12:06 08/17/18 12:06 08/17/18 12:06 Doctor's Discharge - Discharge Referrals: XOCHILT CAGE MD [Primary Care Provider] - Follow up as needed
[2018-08-17 16:01] LABS: ABSOLUTE LYMPHOCYTES (AUTO) 1.2 10^3/uL (0.5-4.7); ABSOLUTE MONOCYTES (AUTO) 0.7 10^3/uL (0.1-1.4); ABSOLUTE NEUT (AUTO) 9.5 10^3/uL (1.7-8.2); BASOPHILS % (AUTO) 0.2 % (0-2); HEMATOCRIT 38.6 % (36.0-47.0); HEMOGLOBIN 13.2 g/dL (12.0-15.5); LYMPHOCYTES % (AUTO) 10.7 % (13-45); MEAN CORPUSCULAR HEMOGLOBIN 32.5 pg (27.0-33.4); MEAN CORPUSCULAR HGB CONC 34.2 g/dL (32.0-36.0); MEAN CORPUSCULAR VOLUME 95 fl (80-97); PLATELET COUNT 362 10^3/uL (150-450); RED BLOOD COUNT 4.07 10^6/uL (3.72-5.28); RED CELL DISTRIBUTION WIDTH 14.8 % (11.5-14.0); SEGMENTED NEUTROPHILS % (AUTO) 83.1 % (42-78); TOTAL CELLS COUNTED % (AUTO) 100 %; WHITE BLOOD COUNT 11.4 10^3/uL (4.0-10.5)
[2018-08-17 16:23] LABS: ALANINE AMINOTRANSFERASE 24 U/L (9-52); ALBUMIN 4.8 g/dL (3.5-5.0); ALKALINE PHOSPHATASE 106 U/L (38-126); ANION GAP 14 (5-19); ASPARTATE AMINO TRANSFERASE 21 U/L (14-36); BILIRUBIN,DIRECT 0.6 mg/dL (0.0-0.4); BILIRUBIN,TOTAL 1.3 mg/dL (0.2-1.3); BLOOD UREA NITROGEN 20 mg/dL (7-20); CALCIUM 10.5 mg/dL (8.4-10.2); CARBON DIOXIDE 22 mmol/L (22-30); CHLORIDE 103 mmol/L (98-107); GLUCOSE 125 mg/dL (75-110); LIPASE 19.7 U/L (23-300); POTASSIUM 4.2 mmol/L (3.6-5.0); SODIUM 139.3 mmol/L (137-145); TOTAL PROTEIN 8.2 g/dL (6.3-8.2)
[2018-08-17] MEDS ORDERED: ONDANSETRON HCL INJ/PF 4 MG/2 ML SDV ONE (17:25)
--- NOTE | 2018-08-17 18:07 | ER Document Report ---
ED Fever - General Mode of Arrival: Wheelchair Information source: Patient TRAVEL OUTSIDE OF THE [place] IN LAST 30 DAYS: No - HPI Onset: Other - Last evening Onset/Duration: Intermittent, Worse Quality of pain: Burning, Sharp Severity: Mild Pain Level: 2 Context: Cancer, Chemotherapy Associated symptoms: Body/muscle aches, Chills, Nonproductive cough, Diarrhea, Fever, Nausea, Rhinnorhea, Weakness. denies: Vomiting Similar symptoms previously: No Recently seen / treated by doctor: Yes <FITO BABCOCK - Last Filed: 08/17/18 19:13> <EZIO LESTER - Last Filed: 08/17/18 21:25> - General Chief Complaint: Fever Stated Complaint: FEVER Time Seen by Provider: 08/17/18 14:22 Notes: Patient is a 58-year-old female who comes in with a complaint of fever. Patient states she has history of pancreatic cancer has had a Whipple procedure done last year and the cancer has migrated into the lymph nodes. She comes in here today with complaint of fever which she states EMS measured at 101.2 patient has a complaint of having stomach pains ever since she had a Whipple but it seems to have increased over the past couple of days. She also has some right-sided flank pain. She states she has some problems with her kidneys. Currently for pain patient is on Dilaudid and the fentanyl patch. Fentanyl patch is due to be changed today. She states she has had some mild cough and she does continue to smoke at least a pack of cigarettes a day. Eyes having a productive cough at all. She has had no vomiting but she has had nausea. On triage patient's temp was 98.0 pulse was 60 respiratory rate is 16 set was 100% blood pressure was 127/55. Patient states that Dr. Hutchinson is her oncologist to [facility] handles all of her medical problems. She states that her last chemo treatment was about a month ago and he has stopped her from taking anymore chemo because it did not agree with her body. She states likewise he has stopped her on her radiation treatments because it was not agreeing with her body. (FITO BABCOCK) - Related Data Allergies/Adverse Reactions: acetaminophen [From Vicodin] Allergy (Severe, Verified 08/17/18 14:22) Shortness of Breath hydrocodone [Hydrocodone] Allergy (Severe, Verified 08/17/18 14:22) Shortness of Breath oxycodone [From Percocet] Allergy (Severe, Verified 08/17/18 14:22) Shortness of Breath propoxyphene [From Darvocet-N] Allergy (Severe, Verified 08/17/18 14:22) Shortness of Breath tramadol [Tramadol] Allergy (Severe, Verified 08/17/18 14:22) Shortness of Breath Past Medical History - General Information source: Patient - Social History Smoking Status: Current Every Day Smoker Cigarette use (# per day): Yes - 1 pack per day Chew tobacco use (# tins/day): No Smoking Education Provided: Yes Frequency of alcohol use: Rare Drug Abuse: None Lives with: Alone Family History: Reviewed & Not Pertinent, Other - Father of gastric carcinoma Patient has suicidal ideation: No Patient has homicidal ideation: No - Past Medical History Cardiac Medical History: Reports: Hx Hypercholesterolemia Denies: Hx Coronary Artery Disease, Hx Heart Attack, Hx Hypertension Pulmonary Medical History: Denies: Hx Asthma, Hx Bronchitis, Hx COPD, Hx Pneumonia Neurological Medical History: Reports: Hx Seizures. Denies: Hx Cerebrovascular Accident Renal/ Medical History: Denies: Hx Peritoneal Dialysis Musculoskeletal Medical History: Denies Hx Arthritis Psychiatric Medical History: Reports: Hx Bipolar Disorder Denies: Hx Depression Past Surgical History: Reports: Hx Abdominal Surgery - wipal, Hx Appendectomy, Hx Cholecystectomy, Hx Gynecologic Surgery - tubal ligation, Hx Oral Surgery - tmj, Hx Vascular Surgery - carpal tunnel, Other - Common bile duct stent December 2016 - Immunizations Hx Diphtheria, Pertussis, Tetanus Vaccination: Yes <FITO BABCOCK - Last Filed: 08/17/18 19:13> Review of Systems - Review of Systems Constitutional: No symptoms reported, Chills, Fever, Malaise EENT: No symptoms reported Cardiovascular: No symptoms reported Respiratory: Cough, Short of breath. denies: Sputum Gastrointestinal: No symptoms reported, Abdomen distended, Diarrhea, Nausea, Poor appetite, Poor fluid intake. denies: Vomiting, Constipation Genitourinary: No symptoms reported Female Genitourinary: No symptoms reported Musculoskeletal: No symptoms reported, Muscle pain, Muscle stiffness Skin: No symptoms reported Neurological/Psychological: No symptoms reported -: Yes All other systems reviewed and negative <FITO BABCOCK - Last Filed: 08/17/18 19:13> Physical Exam - Vital signs Interpretation: Normal - General General appearance: Alert - HEENT Head: Normocephalic, Atraumatic Eyes: Normal Nasal: Normal Mouth/Lips: Normal Mucous membranes: Normal, Moist Pharynx: Normal. No: Blood in hypopharynx, Peritonsillar abscess, Post nasal drainage Neck: Normal, Posterior cervical chain. No: Anterior cervical chain - Respiratory Respiratory status: No respiratory distress Chest status: Nontender Breath sounds: Decreased air movement, Nonproductive cough, Rhonchi. No: Rales , Stridor, Wheezing Chest palpation: Normal. No: Flail segment, [place] frothy sputum, Purulent sputum , Subcutaneous emphysema, Sucking chest wound, Tender, Ecchymosis, Wounds - Cardiovascular Rhythm: Regular Heart sounds: Normal auscultation Murmur: No - Abdominal Inspection: Normal Distension: No distension Bowel sounds: Normal Tenderness: Nontender Organomegaly: No organomegaly - Extremities General upper extremity: Normal inspection, Nontender, Normal ROM, Normal strength General lower extremity: Normal inspection, Nontender, Normal ROM, Normal strength - Neurological Neuro grossly intact: Yes Cognition: Normal Orientation: AAOx4 Fadia Coma Scale Eye Opening: Spontaneous Fadia Coma Scale Verbal: Oriented Fadia Coma Scale Motor: Obeys Commands [place] Coma Scale Total: 15 Speech: Normal - Skin Skin Temperature: Warm Skin Moisture: Moist Skin Color: Normal, [place] <FITO BABCOCK - Last Filed: 08/17/18 19:13> <EZIO LESTER - Last Filed: 08/17/18 21:25> - Vital signs Vitals: Temp Pulse Resp BP Pulse Ox 98.0 F 60 16 127/55 H 100 08/17/18 12:06 08/17/18 12:06 08/17/18 12:06 08/17/18 12:06 08/17/18 12:06 - Notes Notes: Patient is a 58-year-old female who are somewhat frail. She is awake and alert mildly uncomfortable appearing (FITO BABCOCK) Course - Laboratory Result Diagrams: 08/17/18 15:18 08/17/18 15:18 <FITO BABCOCK - Last Filed: 08/17/18 19:13> - Laboratory Result Diagrams: 08/17/18 15:18 08/17/18 15:18 <EZIO LESTER - Last Filed: 08/17/18 21:25> - Re-evaluation Re-evalutation: 08/17/18 18:13 Patient's presentation currently is difficult to ascertain where she may be having this fever. Recently just completed a chemotherapy treatment a month ago is concerned for possibility of being immunocompromised. And has a slight elevated white count of 11.7. Patient also has come back in her urine moderate amount of blood. Given that she is 58 years old and postmenopausal and considering his possibility of a kidney stone to be high on the list. Patient has some very prominent right-sided flank pain and some very prominent right lower quadrant pain with compression. Since patient is status post appendectomy cholecystectomy there is little or alternatives. Secondary possibility would be with all of her abdominal surgeries and a Whipple a abdominal abscess which may have to be addressed later. I have elected to go with just a plain stones that he were everything is leading me to the diagnosis and I do not want to miss a stone if it is there. Likewise a CT with contrast can be done at a later date if we are suspecting a abscess in the CT stone study is negative. I have discussed this idea with Dr. Naylor and he is in agreement with this plan. I have also discussed this with the patient and told her which direction we are planning to go. She is very uncomfortable appearing even as a peak and on her without her knowing him there. She cannot find a position of comfort. Though she gets the fentanyl patch which needs to be changed today and Dilaudid pills I will give her 5 of morphine. We will also try to do some Toradol as well. Next I have given report to a p supervisor APC Desmond Lester explained to him the plan of approach to the patient we have figured out at this time. He will be taking care of her needs until after the CT report is done. 08/17/18 18:55 08/17/18 19:14 (FITO BABCOCK) 08/17/18 20:59 Patient is an afebrile 58-year-old female who presents to the ED with right abdominal/flank pain. I suspect that this pain is chronic intermittent in nature and she had the same pain in March. Patient states that she had to be admitted at that time because of intractable nausea and vomiting. Patient states that she has not vomited throughout her stay here and is feeling better after being given the Phenergan. Patient states that she has Phenergan at home , but was unable to take it because of the vomiting. Patient is on fentanyl as well. Her CBC does show a minimally elevated white blood cell count 11.4, but patient had been vomiting and this is consistent with her level in March. Her urinalysis which showed blood is also not uncommon for her. Patient states that her pains have otherwise improved. I did discuss with her the option of admission versus outpatient treatment and at that I could send her home with Phenergan suppositories. Patient states that she feels well enough to go home with the nausea medication. I did a p.o. challenge with her at the bedside and patient is tolerating without any difficulties. She is nontoxic-appearing. Advised recheck with her brick dropper in the next 1-2 days. Return to the ED with any worsening/concerning symptoms otherwise as reviewed in discharge. Patient is in agreement. Reviewed with Dr. Naylor who is in agreement at this time with dispo/plan. (EZIO LESTER) - Vital Signs Vital signs: Temp Pulse Resp BP Pulse Ox 98.2 F 72 18 122/62 100 08/17/18 17:00 08/17/18 17:00 08/17/18 17:00 08/17/18 17:00 08/17/18 17:00 - Laboratory Laboratory results interpreted by me: 08/17/18 08/17/18 08/17/18 15:18 15:18 18:13 WBC 11.4 H RDW 14.8 H Seg Neutrophils % 83.1 H Lymphocytes % 10.7 L Absolute Neutrophils 9.5 H Glucose 125 H Calcium 10.5 H Direct Bilirubin 0.6 H Lipase 19.7 L Urine Protein 100 H Urine Ketones 20 H Urine Blood LARGE H Urine Urobilinogen 2.0 H Urine Ascorbic Acid 20 H Discharge <FITO BABCOCK - Last Filed: 08/17/18 19:13> <EZIO LESTER - Last Filed: 08/17/18 21:25> - Discharge Clinical Impression: Abdominal pain Qualifiers: Abdominal location: unspecified location Qualified Code(s): R10.9 - Unspecified abdominal pain Condition: Stable Disposition: HOME, SELF-CARE Instructions: Abdominal Pain ([facility]) Additional Instructions: Maintain adequate fluid and food intake [place] diet ([employer] Bananas, rice, apples, toast, etc Zofran as needed tylenol if needed Monitor for any worsening symptoms Make sure you are staying hydrated enough to urinate and have normal BM's Recheck with your PCM/Oncologist in 1-2 days Return to the ED with any worsening symptoms and/or development of fever, headache, chest pain, palpitations, syncope, shortness of breath, trouble breathing, abdominal pain, n/v/d, blood in stool/urine, weakness, or other worsening symptoms that are concerning to you. Referrals: XOCHILT CAGE MD [Primary Care Provider] - Follow up tomorrow
[2018-08-17 18:32] LABS: APPEARANCE,URINE SLIGHTLY-CLOUDY; BILIRUBIN,URINE NEGATIVE (NEGATIVE); COLOR,URINE AMBER; GLUCOSE, URINE NEGATIVE (NEGATIVE); KETONES,URINE 20 mg/dL (NEGATIVE); LEUKOCYTE ESTERASE,URINE NEGATIVE (NEGATIVE); NITRITE,URINE NEGATIVE (NEGATIVE); PROTEIN,URINE 100 mg/dL (NEGATIVE)
--- NOTE | 2018-08-17 18:45 | RADIOLOGY REPORT (SQ) ---
EXAM DESCRIPTION: CHEST 2 VIEWS COMPLETED DATE/TIME: 08/17/2018 6:32 pm REASON FOR STUDY: fever COMPARISON: Two-view chest 11/11/2010 CT chest 06/03/2018 EXAM PARAMETERS: NUMBER OF VIEWS: two views TECHNIQUE: Digital Frontal and Lateral radiographic views of the chest acquired. RADIATION DOSE: NA LIMITATIONS: none FINDINGS: LUNGS AND PLEURA: No opacities, masses or pneumothorax. No pleural effusion. MEDIASTINUM AND HILAR STRUCTURES: No masses or contour abnormalities. HEART AND VASCULAR STRUCTURES: Heart normal size. No evidence for failure. BONES: Thoracic spine osteoporotic without compression deformity HARDWARE: Right permanent central line tip superior vena cava. Clips right upper quadrant post sigrid cystectomy OTHER: No other significant finding. IMPRESSION: NO ACUTE RADIOGRAPHIC FINDING IN THE CHEST. TECHNICAL DOCUMENTATION: JOB ID: [id number] [employer]- All Rights Reserved Reading location - IP/workstation name: [email or web address] [email or web address]
[2018-08-17] MEDS ORDERED: PROMETHAZINE HCL INJ 25 MG/1 ML VIAL IV ONE (18:47)
[2018-08-17] MEDS ORDERED: MORPHINE SULFATE 10 MG/ML INJ IV ONE (18:48)
[2018-08-17] MEDS ORDERED: KETOROLAC TROMETHAMINE INJ/PF 30 MG/1 ML SDV IV ONE (18:59)
[2018-08-17] MEDS ORDERED: PROMETHAZINE HCL INJ 25 MG/1 ML VIAL IM ONE (19:51)
--- NOTE | 2018-08-17 20:25 | RADIOLOGY REPORT (SQ) ---
EXAM DESCRIPTION: CT LTD RENAL STONE PROTOCOL ON COMPLETED DATE/TIME: 08/17/2018 7:19 pm REASON FOR STUDY: right flank pain COMPARISON: PET-CT 04/20/2018 CT abdomen pelvis 04/15/2018, August 2018 TECHNIQUE: CT scan of the abdomen and pelvis performed without intravenous or oral contrast. Images reviewed with lung, soft tissue, and bone windows. Reconstructed coronal and sagittal MPR images revi ewed. All images stored on PACS. All CT scanners at this facility use dose modulation, iterative reconstruction, and/or weight based d osing when appropriate to reduce radiation dose to as low as reasonably achievable (ALARA). [facility]: Dose Right [facility]: CareDose [facility]: Dose Right [facility]: Teradose 4D [facility]: [employer] RADIATION DOSE: CT Rad equipment meets quality standard of care and radiation dose reduction techniq ues were employed. CTDIvol: 5.1 mGy. DLP: 258 mGy-cm.mGy. LIMITATIONS: None. FINDINGS: LOWER CHEST: No significant findings. No nodules or infiltrates. NON-CONTRASTED LIVER, SPLEEN, ADRENALS: Evaluation limited by lack of IV contrast. No identified sign ificant masses. PANCREAS: Post Whipple procedure with resection of pancreatic head. Multiple enlarged lymph nodes ar e present at the celiac and SMA region similar compared to 06/03/2018 CT exam. GALLBLADDER: Surgically absent RIGHT KIDNEY AND URETER: No suspicious masses. Assessment limited by lack of IV contrast. No signif icant calcifications. No hydronephrosis or hydroureter. LEFT KIDNEY AND URETER: No suspicious masses. Assessment limited by lack of IV contrast. No signifi cant calcifications. No hydronephrosis or hydroureter. AORTA AND RETROPERITONEUM: No aneurysm. No retroperitoneal masses or adenopathy. BOWEL AND PERITONEAL CAVITY: No obvious masses or inflammatory changes. No free fluid. APPENDIX: Surgically absent PELVIS, BLADDER, AND ABDOMINAL WALL:No abnormal masses. No free fluid. Bladder normal. BONES: No significant findings. OTHER: No other significant finding. IMPRESSION: Post Whipple procedure. Stable upper abdominal adenopathy COMMENT: Quality ID # [id number]: Final reports with documentation of one or more dose reduction techniques (e.g., Automated exposure control, adjustment of the mA and/or kV according to patient size, use of iterative reconstruction technique) TECHNICAL DOCUMENTATION: JOB ID: [id number]- All Rights Reserved Reading location - IP/workstation name: [email or web address]
[2018-08-17] MEDS ORDERED: PROMETHAZINE HCL 25 MG SUPP (4 SUPP/ER DISP) PR PRN (20:54)
[2018-08-17 21:11] VITALS: BP 138/63
== END 2018-08-17 22:15 | disposition home or self-care (01) ==
LOC: ER 11:42
DX: R10.9 Unspecified abdominal pain (principal); R10.31 Right lower quadrant pain; R50.9 Fever, unspecified; D72.829 Elevated white blood cell count, unspecified; C77.9 Secondary and unspecified malignant neoplasm of lymph node, unspecified; Z85.07 Personal history of malignant neoplasm of pancreas; R31.9 Hematuria, unspecified; M79.1 Myalgia; R05 Cough; R19.7 Diarrhea, unspecified; J34.89 Other specified disorders of nose and nasal sinuses; R53.1 Weakness; R06.02 Shortness of breath; F17.210 Nicotine dependence, cigarettes, uncomplicated; R11.0 Nausea; Z92.3 Personal history of irradiation; Z92.21 Personal history of antineoplastic chemotherapy; Z88.5 Allergy status to narcotic agent; Z90.49 Acquired absence of other specified parts of digestive tract; Z79.891 Long term (current) use of opiate analgesic
CPT/HCPCS: 99284; 96372; 96361; 96374; 96375; 36415; 87086; 83690; 85025; 80053; 81001; 71046; 76380; A9270; J1885; J2270; J2550; J2405; J3490